=== PATIENT | female | born 1960 | race Caucasian/White ===

== ENCOUNTER 2019-02-26 14:36 | Inpatient (IN) | payer MEDICAID, SELFPAY ==
--- NOTE | 2019-02-21 13:35 | ECG_ITS ---
Measurements Intervals [place] Rate: 89 P: 57 SC: 180 QRS: 65 QRSD: 91 T: 63 QT: 347 QTc: 424 SINUS RHYTHM Compared to ECG 05/07/2018 11:33:14 No significant changes Electronically Signed On 02-21-2019 17:10:35 CLUB WAITER/WAITRESS by Julee Lee M.D. [id number]
[2019-02-21 13:45] VITALS: BMI 26.5
--- NOTE | 2019-02-21 14:20 | ANES.PREANES ---
Pre-Anesthetic Assessment Pre-Anesthetic Assessment: Height/Weight: Height 1.6 m Weight 68.039 kg Proposed Procedure: Operation Date: 02/26/19 13:00 Proposed Procedures p Total Knee Arthroplasty Revision polyethlene exchange/ poss exhcage of tibal and femoral components(Not Applicable) - Annette Ceballos MD Social: Social History: Alcohol and Tobacco Exam: Pre-Anes Outpt Exam: alert, oriented x 3, clear to auscultation bilaterally and regular rate & rhythm Airway: Submandibular: WNL Cervical ROM: WNL MP: 2 Dentition: Loose (teeth very bad) Pulmonary: Pulmonary: COPD, Cough and ESCOBAR CV/HEM: CV/HEM: HTN : : None reported Hepatic: Hepatic: None reported GI: GI: GERD Metabolic: Metabolic: None reported Musc/skel: Musc/skel: OA/DJD and Weakness (gen) Neuropsych: Neuropsych: Anxiety and Depression Anesthetic Plan: ASA status: III Anesthesia: Anesthesia Evaluation and General Risk of > 500 ml blood loss (7ml/kg in children): No PFSH Anesthesia PFSH: Medical History Anxiety (Acute) Chronic back pain (Acute) Depression (Acute) Hypertension (Acute) Surgical History H/O tubal ligation (Acute) History of total right knee replacement (Acute) Hx of colonoscopy with polypectomy (Acute) Hx of inguinal hernia repair (Acute) Hx of umbilical hernia repair (Acute) Social History Smoking and tobacco status: current every day smoker cigarettes Packs smoked per day: 1 Data Anesthesia Cardiac Studies: No Data to Display
[2019-02-21 14:35] LABS: Basophils % 0.2 %; Eosinophils # 0.2 10^3/uL (0.0-0.8); Eosinophils % 2.7 %; Hematocrit 38.8 % (37.0-47.0); Lymphocytes # 2.1 10^3/uL (0.8-4.8); Lymphocytes % 25.3 %; Mean Corpuscular HGB Conc 33.5 g/dL (30.0-36.0); Mean Corpuscular Hemoglobin 30.6 pg (28.0-34.0); Mean Corpuscular Volume 91.3 fL (81-99); Mean Platelet Volume 9.2 fL (7.4-10.4); Monocytes # 0.7 10^3/uL (0.2-0.9); Monocytes % 8.6 %; Neutrophils # 5.3 10^3/uL (1.8-7.7); Neutrophils % 62.7 %; Nucleated Red Blood Cells % 0 %; Platelet Count 407 10^3/cmm (130-400); Red Blood Count 4.25 10^6/uL (4.1-5.3); Red Cell Distribution Width 13.1 % (12.1-15.1); White Blood Count 8.5 10^3/uL (4.0-10.0)
[2019-02-21 14:47] LABS: Protein Urine Neg (Negative); Specific Gravity, Urine 1.005 (1.005-1.030); Urine Appearance Clear (CLEAR); Urine Color Yellow (Yellow); pH Urine 7 (5-7)
[2019-02-21 14:48] LABS: Bilirubin Urine Neg (NEGATIVE); Blood Urine Neg (Negative); Glucose Urine UA Norm (Normal); Ketones Urine Negative (Negative); Leukocyte Esterase Urine Negative (Negative); Nitrate Urine Negative (Negative); Urobilinogen Urine Norm (Negative)
[2019-02-21 14:48] LABS: INR 0.97 (0.8-1.2)
[2019-02-21 14:49] LABS: Add Urine Culture? No; Bacteria Urine TRACE; Squamous Epithelial Cell Urine 0-4 (0-5); WBC Urine 0-4 /hpf (0-5)
[2019-02-21 14:54] LABS: Alanine Aminotransferase 13 U/L (0-33); Albumin Level 4.6 g/dL (3.5-5.2); Alkaline Phosphatase 81 IU/L (35-105); Anion Gap 15.8 (5-19); Aspartate Amino Transferase 14 U/L (0-32); Blood Urea Nitrogen 14 mg/dL (6-20); Calcium 10.1 mg/Dl (8.6-10.0); Carbon Dioxide 26 mmol/L (22-29); Chloride 95 mmol/L (98-107); Globulin 2.1 g/dL (1.3-4.6); Glomerular Filtration Rate 86.6 mL/min (90-130); Glucose 117 mg/dL (74-109); Potassium 3.8 mmol/L (3.5-5.1); Sodium 133 mmol/L (136-145); Total Bilirubin 0.2 mg/dL (0.15-1.2); Total Protein 6.7 g/dL (6.6-8.7)
--- NOTE | 2019-02-22 | XR_ITS ---
WS: [id number] CHEST 2 VIEWS HISTORY: RIGHT KNEE SURGERY COMPARISON: 05/07/2018 Lungs: Clear with no abnormality. No pleural effusion or pneumothorax. Cardiac size: Normal. Mediastinum/Aorta: Normal mediastinum. Bones: Normal. XR/XR chest 2V* [id number] IMPRESSION: Normal chest.
[2019-02-26] VITALS (20 sets, daily range): BP systolic 91–154; BP diastolic 50–89; PULSE 83–99; RESP 16–22; TEMP 36.4–37.1; O2SAT 91–99
--- NOTE | 2019-02-26 09:17 | ANES.PAUD ---
Pre-Anesthetic Update Pre-Anesthetic Assessment: Date of Surgery/Procedure: 02/26/19 Proposed Procedure: Operation Date: 02/26/19 10:25 Proposed Procedures p Total Knee Arthroplasty Revision polyethlene exchange/ poss exchange of tibal and femoral components(Not Applicable) - Annette Ceballos MD Any changes to Pre-Anesthetic Assessment?: No Vitals: Temperature 98.1 F 02/26/19 08:39 Temperature Source Temporal Artery S can 02/26/19 08:39 Pulse Rate 85 02/26/19 08:39 Pulse Rhythm 02/26/19 08:39 Pulse Strength 3+ Normal 02/26/19 08:39 Respiratory Rate 18 02/26/19 08:39 Respiratory Effort Non-Labored 02/26/19 08:39 Respiratory Depth Normal 02/26/19 08:39 Blood Pressure 154/89 02/26/19 08:39 Blood Pressure Anupama n 110 02/26/19 08:39 Blood Pressure Pos ition Sitting 02/26/19 08:39 Pulse Oximetry 98 02/26/19 08:39 Oxygen Delivery Me thod 02/26/19 08:39 Exam: Pre-Anes Outpt Exam: alert, oriented x 3, clear to auscultation bilaterally and regular rate & rhythm Cardiac Studies: No Data to Display
--- NOTE | 2019-02-26 11:03 | ANES.PROC ---
Anesthesia Procedures Procedure/Date: 02/26/19 Nerve Block ^: Nerve Block 1: Main Anesthesia: general anesthesia Time Out Performed: Yes Consent: requested by attending/covering physician and from patient Nerve block location: adductor canal Anesthesia monitors applied: pulse oximetry, EKG, BP cuff and oxygen Nerve block position: semi sitting Anesthetic Used: ropivicaine 0.5% Amount of anesthesia used (mL): 30 Ultrasound used to: recognize landmarks and visualize and ID femerol nerve Nerve Stimulator Used?: No Interscalene/Femoral BLK: 4 stimuplex 21 g needle used for position and inplane approach Injection: neg aspiration of heme Patient Tolerated Procedure: well Complications: none
[2019-02-26] MEDS: sodium chloride 0.9% 1,000 ML 30 ML IV (11:23)
[2019-02-26] MEDS: midazolam 1 mg/mL INJ 5 ML 5 MG IV (11:23)
--- NOTE | 2019-02-26 13:08 | PM.HPUD ---
H&P update H&P Update: DATE OF SURGERY/PROCEDURE: 02/26/19 DATE H&P PERFORMED: 02/18/19 H&P UPDATE INFORMATION: H&P completed within last 30 days, No changes to prior documentation and H&P is in [facility] EMR on date indicated PLANNED PROCEDURE: Operation Date: 02/26/19 10:25 Proposed Procedures p Total Knee Arthroplasty Revision polyethlene exchange/ poss exchange of tibal and femoral components(Not Applicable) - Annette Ceballos MD Full H&P Medications/Allergies: Current Medications: Current Medications Generic Name Dose Route Start Last Admin Trade Name Freq PRN Reason Stop Dose Admin Sodium Chloride 1,000 mls @ 30 ml s/hr 02/26/19 06:45 02/26/19 11:23 Sodium Chloride 0.9% IV 02/27/19 06:44 30 mls/hr .Q24H DANILO Administration Perinent History: Medical/Surgical History: Medical History (Updated 02/21/19 @ 14:21 by Tadeo Angeles MD) Anxiety (Acute) Chronic back pain (Acute) Depression (Acute) Hypertension (Acute) Social History: Social History Smoking and tobacco status: current every day smoker cigarettes Packs smoked per day: 1 A&P Assessment and plan (1) Pain due to internal orthopedic prosthetic devices, implants and grafts, initial encounter: Status: Acute Code(s): T84.84XA - Pain due to internal orthopedic prosthetic devices, implants and grafts, initial encounter (2) History of total knee arthroplasty: Status: Acute Code(s): Z96.659 - Presence of unspecified artificial knee joint
[2019-02-26] MEDS: ceFAZolin 1,000 mg SDV 1000 MG IRRIGATION ×2 (13:19→13:34)
[2019-02-26] MEDS: vancomycin 1,000 MG in sodium chloride 0.9% 250 ML 250 MG IV (13:33)
[2019-02-26] MEDS: vancomycin 1,000 MG SDV 1000 MG XX (13:40)
--- NOTE | 2019-02-26 13:47 | ANE.PACU ---
 Inpatient post-anesthesia follow up: Airway intact: Yes Vital signs: Temperature 98.1 F Pulse Rate [Right] 85 Respiratory Rate 18 Blood Pressure [Le ft Arm] 154/89 Pulse Oximetry 98 Oxygen Delivery Me thod Room Air Oxygen Flow Rate Fraction of Inspir ed Oxygen Hydration adequate: Yes Nausea and vomiting: No Mental status: Baseline
--- NOTE | 2019-02-26 14:46 | XR_ITS ---
WS: [id number] Right knee, 3 views, 02/26/2019 Clinical Data: Post Op - Patient in PACU Comparison: None. Findings: The patient has had surgery on the right knee with medial renae. The arthroplasty components of the distal femur and proximal tibia appear to be the same. The component of the posterior patella appear s to be different. There is an air-fluid level in the suprapatellar bursa from the recent surgery. XR/XR knee RT 3V* [id number] Impression: Revision of right knee arthroplasty.
--- NOTE | 2019-02-26 14:57 | P.OP_ITS ---
Operative Report Post-Operative Note: Date of procedure: 02/26/19 Preop Diagnosis: Painful, unstable right total knee arthroplasty Post-op diagnosis: same Post-op Findings: increased stability with increased size of the polyethylene insert Procedure Done: right knee arthrotomy with synovectomy and revision of tibial compound it with removal and replacement of polyethylene tibial insert Implants: Triathlon X3 posterior stabilized size 2 x 16 mm tibial bearing insert Specimens removed/disposition: tibial bearing insert removed and disposed of Pathology: other (synovium sent for culture and pathologic evaluation, synovial fluid ulcer and sensitivity) Surgeon: Annette Ceballos Party Supply Specialist: Bunny Stewart Anesthesia: general (intubated with regional block) Estimated blood loss (mL): 5 Tourniquet time (min): 60 IV fluids (mL): 800 Urine output (mL): 500 Complications: none Findings: full extension but varus valgus instability with exam under anesthesia Condition: stable Disposition: PACU (then to floor) Operative Report: Brief History: This 58-year-old woman presented to my office with complaints of pain and popping following her right total knee arthroplasty which was performed on 05/15/2018. Apparently, this is been a progressive problem for her. Upon evaluation in the office, she did appear to have slight hyperextension, and she had varus valgus instability to stress. She was very uncomfortable with this testing. The patient has multiple medical comorbidities which will require inpatient admission and hospitalist consultation. Procedure: The patient was brought to the operating theater, and after undergoing adequate general intubated anesthesia with supplemental regional block, the right lower extremity was prepped with Dura-Prep and draped in usual fashion following placement of a tourniquet high on the leg. The leg was then draped free. Following prepping and draping, the leg was exsanguinated, and the tourniquet was elevated to 250 mmHg for a total tourniquet time of 60 minutes. Prior to elevation of the tourniquet, but following exposure of the site of surgery, a surgical pause was performed. At the time of the surgical pause, we confirmed the site and side of surgery. Additionally, we confirmed preoperative antibiotics were held. Once cultures were obtained, vancomycin 1 g was given. The availability of equipment was confirmed, and the patient's identity was verbalized as well. Following the surgical pause, an incision was made centering over the patella, but incorporating the patient's prior incision, continuing proximally and distally as necessary to allow access to the knee joint. Dissection continued through skin and soft tissues using a scalpel. Hemostasis was obtained using electrocautery. The skin incision was followed by a median parapatellar arthrotomy. Synovial fluid was cultured at this time. Soft tissue adhesions were removed to allow access to the knee joint. This encompassed a significant side effect may particularly medially and laterally as well as superior to the femoral component. The patellar tendon was debrided as well with care being taken to avoid injury to the tendon. Soft tissue from around the tibia was removed to allow access and evaluation of the tibial tray. Components were evaluated. There was no evidence of loosening. There was instability with varus or valgus stress particularly with the knee flexed about 30?. The tibial insert was removed using osteotomes. This was accomplished uneventfully. Further soft tissue removal and synovectomy was accomplished. we were able to allow access to the tibia. Synovectomy was performed posteriorly as well. Trial reduction was accomplished with with the appropriate size 2 triathlon tibial bearing insert posterior stabilized. The trial was accomplished with a 13 mm insert with the previous insert having been 11 mm. The decision was made after this reduction that a size 16 mm insert would be appropriate, and the decision was also made to not perform a trial reduction with this insert secondary to difficulty inserting and removing. The knee was irrigated with 20 mL of Betadine and 500 mL of normal saline, and this was allowed to remain in the knee for 3-4 minutes. The knee was then copiously irrigated and suctioned dry. Attention was then directed to closure. Closure was accomplished with 0 Vicryl in the fascial tissues, 2-0 Monocryl was used in the subcutaneous tissues, and the skin was closed with skin renae. A sterile dressing was then placed consisting of Xeroform gauze, 4 x 4's, ABDs, sterile soft roll, and an Desmond wrap. The patient was returned the Recovery Room in a satisfactory condition. X-rays were obtained there. The patient will be discharged to the floor for postoperative rehabilitation and pain management. She'll be admitted to the floor as an inpatient for a minimum of 2 midnights stay for medical and pain management as well as aggressive physical therapy and range of motion. Patient's knee has been operated on multiple times, an inpatient rehabilitation will be necessary for her to maximize her recovery from this total knee arthroplasty. There were no specimens and no complications. Coding Level of Care Code Acute National Recruiter for Adan Guillen
[2019-02-26] MEDS: fentaNYL 50 mcg/mL INJ 2mL IVP (15:08)
--- NOTE | 2019-02-26 15:44 | SUR.PHASEI ---
1448 PT TO PACU AWAKE ALERT TALKATIVE, RT KNEE WITH FIRST ICE DRESSING D/I DISTAL PULSE STRONG AND REGULAR BILAT FOOT PUMPS ON FERGUSON WITH STATLOCK TO LT THIGH WITH YELLOW URINE IN TUBING, 1528 PT TO FLOOR PER BED NO FAMILY IN WR, DR GLASS AT BEDSIDE UPDATED PT THAT ALL WENT WELL, AND THAT NO ANSWER TO HER S/O PHONE . PT DRESSING D/I X RAY S DONE PT ON 3LNC NOW PT TO FLOOR PER BED BY RN. PT C/O O F PAIN BUT SLEEPS IF NOT DISTURBED FACE SCALE 2 , IF QUESTIONED PT STATES 8 .PT OK WITH TAKING PO PAIN MED ON FLOOR.
[2019-02-26] MEDS: oxyCODONE 5 mg IR Tab/Cap PO ×2 (16:16→20:19)
--- NOTE | 2019-02-26 16:16 | P.CONIM_ITS ---
Providers/Reason For Consult Consulting Physican/Specialty*: Lin, orthopedic surgery Reason for Consult*: Medical management Attending Physician: Annette Ceballos History of Present Illness History of Present Illness Dayanara Singleton is a 58 year old female that presented to the hospital today for total knee arthroplasty. She reported that she had been feeling well prior to surgery without any recent illness or fevers. She denies any recent antibiotic use. She reported no other concerns other than knee pain. Patient denies any recent chest pain, no shortness of breath. She reported chronic smoker's cough that is unchanged. Patient did report daily alcohol use, no history of alcohol withdrawal. Review of Systems Const: Denies: fever or chills Eyes: Denies: change in vision ENMT: Denies: nasal congestion Card: Denies: chest pain, palpitations or edema Resp: Denies: shortness of breath, productive cough or coughing up blood GI: Denies: abdominal pain, nausea, vomiting, diarrhea, constipation, blood in stool or black tarry stool : Denies: painful urination or blood in urine Skin/Breast: Denies: rash or new lesion Neuro: Denies: headache or dizziness Psych: Denies: anxiety or depression Endo: Denies: excessive urination or hot flashes Clyde/Lymph: Denies: easy bruising or easy bleeding Meds/Allergies Home Medications and Allergies Home Medications Medication Instructions Recorded Confirmed Type amlodipine 10 mg PO DAILY 02/21/19 02/26/19 History ferrous sulfate [iron] 325 mg PO DAILY 02/21/19 02/26/19 History fluvoxamine 50 mg PO PRN 02/21/19 02/26/19 History lactobacillus combination no.4 3,000 mmu cells PO DAILY 02/21/19 02/26/19 History [Probiotic] lorazepam 0.5 mg PO BID PRN 02/21/19 02/26/19 History metoprolol succinate 100 mg PO QPM 02/21/19 02/26/19 History trazodone 02/21/19 History vitamin C59-[id number] acid 1 tab PO DAILY 02/21/19 02/26/19 History albuterol sulfate [ProAir HFA] INHALATION 02/26/19 History calcium carbonate-vit D3-min tab PO 02/26/19 History [Calcium 600 + Minerals] turmeric 1,000 mg PO DAILY 02/26/19 02/26/19 History Allergies Allergy/AdvReac Type Severity Reaction Status Date / Time No Known Allergies Allergy Verified 02/26/19 08:49 PFSH Acute PFSH: Statuses (acute, chronic, etc) shown below reflect problem list status as previously entered and may not be historically accurate Medical History (Updated 02/26/19 @ 16:20 by Katlin Henson DO) Anxiety (Acute) Chronic back pain (Acute) Depression (Acute) Hypertension (Acute) Pain due to internal orthopedic prosthetic devices, implants and grafts, initial encounter (Acute) Surgical History (Updated 02/26/19 @ 13:11 by Annette Ceballos MD) H/O tubal ligation (Acute) History of total knee arthroplasty (Acute) Right History of total right knee replacement (Acute) Hx of colonoscopy with polypectomy (Acute) Hx of inguinal hernia repair (Acute) Hx of umbilical hernia repair (Acute) Family History (Updated 02/26/19 @ 16:18 by Katlin Henson DO) Mother Cancer Father CAD (coronary artery disease) Stroke FH: brain aneurysm Brother Cancer Social History (Updated 02/26/19 @ 16:19 by Katlin Henson DO) Smoking and tobacco status: current every day smoker cigarettes Packs smoked per day: 1 Alcohol intake: current Substance/Drug Use: never Vitals/I&O/Wt Last Vital Signs Temp 97.7 F 02/26/19 15:30 Pulse 94 02/26/19 15:30 Resp 22 H 02/26/19 15:30 BP 102/68 02/26/19 15:30 Pulse Ox 93 02/26/19 15:30 02/26/19 02/26/19 02/26/19 06:59 14:59 22:59 Intake Total 1860 / 1860 200 / 2060 Output Total 500 / 516 Balance 1844 / 1844 -300 / 1544 Physical Exam Const: COMMON NORMALS: oriented x3 and alert GENERAL APPEARANCE: cooperative ORIENTATION/CONSCIOUSNESS: Yes awake, Yes oriented to person, Yes oriented to place and Yes oriented to time HENMT: COMMON NORMALS: normocephalic and head/scalp atraumatic HEAD & SCALP: normocephalic and atraumatic Eye: COMMON NORMALS: PERRL PUPIL: Yes PERRL Neck/C-Spine: COMMON NORMALS: supple GENERAL: Yes normal visual inspection Resp: COMMON NORMALS: normal respiratory effort and clear to auscultation bilaterally EFFORT & INSPECTION: Yes able to speak in complete sentences AUSCULTATION: clear to auscultation bilaterally, no rhonchi and no wheezes Cardio: COMMON NORMALS: regular rate, regular rhythm and no murmurs RATE: regular rate RHYTHM: regular rhythm GI: COMMON NORMALS: soft to palpation and non-tender INSPECTION: No abdominal distension AUSCULTATION: Yes normoactive bowel sounds PALPATION: Yes soft Extremity: NARRATIVE EXTREMITY EXAM: Postoperative dressing in place in the right lower extremity Neuro: COMMON NORMALS: oriented x3, CN's II-XII intact bilaterally, moves all extremities and no focal motor deficits SENSORIUM/ORIENTATION: Yes alert, Yes oriented to person, Yes oriented to place and Yes oriented to time SPEECH: speech normal Psych: COMMON NORMALS: mental status grossly normal and cooperative Skin: COMMON NORMALS: no rashes or lesions noted GENERAL SKIN EXAM: no rashes or lesions noted A&P Assessment and plan (1) History of total knee arthroplasty: Status post total knee arthroplasty revision performed this admission by Dr. Robert. Will follow up with recommendations in the postoperative setting Status: Acute Code(s): Z96.659 - Presence of unspecified artificial knee joint (2) Hypertension: Continue on amlodipine 10 mg daily Continue on metoprolol succinate 100 mg at bedtime Status: Acute Code(s): I10 - Essential (primary) hypertension (3) Anxiety: Home fluvoxamine 50 mg daily Status: Acute Code(s): F41.9 - Anxiety disorder, unspecified Additional A&P Information Additional A&P Information: Patient reports daily alcohol use: We will monitor closely on [place] protocol with Ativan Tobacco abuse: Strongly encourage cessation, nicotine patch as needed Consult Attestations Medical Necessity Statement: Hospitalization status post total knee arthroplasty revision with daily alcohol use, tobacco abuse, hypertension and anxiety Coding Level of Care Code Acute [facility] Nurse for Adan Fwsergio Diagnoses History of total knee arthroplasty Z96.659 Hypertension I10 Anxiety F41.9
--- NOTE | 2019-02-26 16:16 | SUR.PHASEI ---
1535 PT TO FLOOR AWAKE ALERT TALKATIVE BP 102/68, HR 94, RESP 22, SATS ON 3LNC 93%
[2019-02-26] MEDS: sodium chloride 0.9% 1,000 ML 100 ML IV (16:17)
[2019-02-26] MEDS: metoprolol succinate ER (24 HR) 100 mg Tablet PO (17:18)
[2019-02-26] MEDS: iron polysaccharide complex 150 mg Capsule PO (17:18)
[2019-02-26] MEDS: calcium carbonate 500 mg Chew Tablet 1000 MG PO (17:18)
[2019-02-26] MEDS: aspirin 325 mg EC Tablet PO (17:18)
[2019-02-26] MEDS: chlorhexidine gluconate 0.12% Btl 473 mL 30 ML MUCOUS MEM (17:18)
[2019-02-26] MEDS: sennosides-docusate Tablet 2 TAB PO (17:18)
[2019-02-26] MEDS: CELEcoxib 200 mg Capsule PO (17:18)
[2019-02-26] MEDS: LORazepam 0.5 mg Tablet PO (20:19)
[2019-02-26] MEDS: ondansetron 2 mg/ML SDV 2 mL 4 MG IVP (20:20)
[2019-02-26] MEDS: nicotine 21 mg Patch 1 PATCH TRANSDERMA (20:25)
[2019-02-27] VITALS (13 sets, daily range): BP systolic 96–139; BP diastolic 62–80; PULSE 69–93; RESP 16–18; TEMP 36.3–36.8; O2SAT 91–99; BMI 34.3
[2019-02-27] MEDS: oxyCODONE 5 mg IR Tab/Cap PO ×3 (02:16→12:26)
[2019-02-27] MEDS: ondansetron 2 mg/ML SDV 2 mL 4 MG IVP ×2 (02:16→08:15)
[2019-02-27] MEDS: CELEcoxib 200 mg Capsule PO ×2 (03:00→14:33)
[2019-02-27] MEDS: sodium chloride 0.9% 1,000 ML 100 ML IV ×2 (03:02→14:33)
[2019-02-27] MEDS: TRAMadol 50 mg Tablet PO (04:58)
[2019-02-27 05:23] LABS: Basophils % 0.2 %; Hematocrit 35.2 % (37.0-47.0); Hemoglobin 11.8 g/dL (11.5-15.3); Lymphocytes # 0.7 10^3/uL (0.8-4.8); Lymphocytes % 6.9 %; Mean Corpuscular HGB Conc 33.5 g/dL (30.0-36.0); Mean Corpuscular Hemoglobin 30.9 pg (28.0-34.0); Mean Corpuscular Volume 92.1 fL (81-99); Mean Platelet Volume 9.4 fL (7.4-10.4); Monocytes # 0.5 10^3/uL (0.2-0.9); Monocytes % 4.8 %; Neutrophils # 8.9 10^3/uL (1.8-7.7); Neutrophils % 87.5 %; Nucleated Red Blood Cells % 0 %; Platelet Count 370 10^3/cmm (130-400); Red Blood Count 3.82 10^6/uL (4.1-5.3); White Blood Count 10.1 10^3/uL (4.0-10.0)
[2019-02-27 05:40] LABS: Anion Gap 15.1 (5-19); Blood Urea Nitrogen 10 mg/dL (6-20); Calcium 8.5 mg/Dl (8.6-10.0); Carbon Dioxide 24 mmol/L (22-29); Chloride 96 mmol/L (98-107); Glomerular Filtration Rate 165.1 mL/min (90-130); Glucose 227 mg/dL (74-109); Potassium 4.1 mmol/L (3.5-5.1); Sodium 131 mmol/L (136-145)
[2019-02-27] MEDS: aspirin 325 mg EC Tablet PO (08:13)
[2019-02-27] MEDS: ferrous sulfate EC 325 mg Tablet PO (08:13)
[2019-02-27] MEDS: multivitamin therapeutic Tablet 1 TAB PO (08:14)
[2019-02-27] MEDS: thiamine 100 mg Tablet PO (08:14)
[2019-02-27] MEDS: cholecalciferol (vitamin D3) 1,000 unit Tablet 1000 UNIT PO (08:14)
[2019-02-27] MEDS: iron polysaccharide complex 150 mg Capsule PO (08:14)
[2019-02-27] MEDS: sennosides-docusate Tablet 2 TAB PO (08:14)
[2019-02-27] MEDS: amlodipine 10 mg Tablet PO (08:15)
[2019-02-27] MEDS: nicotine 21 mg Patch 1 PATCH TRANSDERMA (08:15)
[2019-02-27] MEDS: calcium carbonate 500 mg Chew Tablet 1000 MG PO (08:15)
[2019-02-27] MEDS: chlorhexidine gluconate 0.12% Btl 473 mL 30 ML MUCOUS MEM ×2 (08:15→12:20)
--- NOTE | 2019-02-27 10:10 | P.PN_ITS ---
Subjective Subjective: Interval history: Patient awake in bed at time of exam this morning. She reported the pain is well controlled with medication she does report some discomfort in her knee but reported that she is able to get up with therapy and ambulate to the bedside commode. Patient denies any chest pain or shortness of breath Vitals/I&O/Wt Last Vital Signs Temp 98.2 F 02/27/19 08:02 Pulse 93 02/27/19 08:02 Resp 18 02/27/19 08:14 BP 109/67 02/27/19 08:02 Pulse Ox 91 02/27/19 08:02 02/26/19 02/27/19 02/27/19 22:59 06:59 14:59 Intake Total 780 / 2640 1446.667 / 4086.667 240 / 240 Output Total 1050 / 1066 2100 / 3166 Balance -270 / 1574 -653.333 / 920.667 240 / 240 Weight last 48 hrs Weight 87.906 kg Weight 87.906 kg Physical Exam Const: COMMON NORMALS: oriented x3 and alert GENERAL APPEARANCE: cooperative ORIENTATION/CONSCIOUSNESS: Yes awake, Yes oriented to person, Yes oriented to place and Yes oriented to time HENMT: COMMON NORMALS: normocephalic and head/scalp atraumatic HEAD & SCALP: normocephalic and atraumatic Eye: COMMON NORMALS: PERRL PUPIL: Yes PERRL Neck/C-Spine: COMMON NORMALS: supple GENERAL: Yes normal visual inspection Resp: COMMON NORMALS: normal respiratory effort and clear to auscultation bilaterally EFFORT & INSPECTION: Yes able to speak in complete sentences AUSCULTATION: clear to auscultation bilaterally, no rhonchi and no wheezes Cardio: COMMON NORMALS: regular rate, regular rhythm and no murmurs RATE: regular rate RHYTHM: regular rhythm GI: COMMON NORMALS: soft to palpation and non-tender INSPECTION: No abdominal distension AUSCULTATION: Yes normoactive bowel sounds PALPATION: Yes soft Extremity: NARRATIVE EXTREMITY EXAM: Postoperative dressing in place in the right lower extremity Neuro: COMMON NORMALS: oriented x3, CN's II-XII intact bilaterally, moves all extremities and no focal motor deficits SENSORIUM/ORIENTATION: Yes alert, Yes oriented to person, Yes oriented to place and Yes oriented to time SPEECH: speech normal Psych: COMMON NORMALS: mental status grossly normal and cooperative Skin: COMMON NORMALS: no rashes or lesions noted GENERAL SKIN EXAM: no rashes or lesions noted Urinary Catheter Management^: Abdalla: Cath Placed During This Visit: no Data Micro: Micro: Microbiology 02/26/19 13:40 Gram Stain - Final Synovial Fluid 02/26/19 13:45 Gram Stain - Final Knee - Right A&P Assessment and plan (1) History of total knee arthroplasty: Status post total knee arthroplasty revision performed this admission by Dr. Ceballos. Will follow up with recommendations in the postoperative setting Status: Acute Code(s): Z96.659 - Presence of unspecified artificial knee joint (2) Hypertension: Continue on amlodipine 10 mg daily Continue on metoprolol succinate 100 mg at bedtime Status: Acute Code(s): I10 - Essential (primary) hypertension (3) Anxiety: Home fluvoxamine 50 mg daily Status: Acute Code(s): F41.9 - Anxiety disorder, unspecified Additional A&P Information Additional A&P Information: Patient reports daily alcohol use: We will monitor closely on CIWA protocol with Ativan Tobacco abuse: Strongly encourage cessation, nicotine patch as needed. Tobacco cessation greater than 5 minutes today. Patient requesting discharge to home Attestations Medical Necessity Statement*: Hospitalization status post total knee arthroplasty revision Coding Level of Care Code Acute Service Control Operator for Adan Guillen Diagnoses History of total knee arthroplasty Z96.659 Hypertension I10 Anxiety F41.9
--- NOTE | 2019-02-27 13:22 | ANE.PACU ---
 Inpatient post-anesthesia follow up: Airway intact: Yes Vital signs: Temperature 98.2 F Pulse Rate [Right] 69 Pulse Rate 92 Respiratory Rate 18 Blood Pressure [Le ft Arm] 108/67 Pulse Oximetry 98 Oxygen Delivery Me thod Room Air Oxygen Flow Rate 2 Fraction of Inspir ed Oxygen Hydration adequate: No Nausea and vomiting: Yes Pain level: acceptable Mental status: Baseline
--- NOTE | 2019-02-27 13:59 | PM.PN ---
Subjective Subjective: Interval history: Patient is doing very well following revision of her tibial insert following instability after total knee arthroplasty. Medications: Reviewed: Yes Vitals/I&O/Wt Last Vital Signs Temp 98.2 F 02/27/19 12:00 Pulse 69 02/27/19 12:00 Resp 18 02/27/19 12:26 BP 108/67 02/27/19 12:00 Pulse Ox 98 02/27/19 12:00 02/26/19 02/27/19 02/27/19 22:59 06:59 14:59 Intake Total 780 / 2640 1446.667 / 4086.667 720 / 720 Output Total 1050 / 1066 2100 / 3166 Balance -270 / 1574 -653.333 / 920.667 720 / 720 Weight last 48 hrs Weight 193 lb 12.8 oz Weight 193 lb 12.8 oz Physical Exam Const: COMMON NORMALS: no apparent distress and oriented x3 EXAM LIMITATIONS: no altered mental status ORIENTATION/CONSCIOUSNESS: Yes awake and Yes oriented to person HENMT: COMMON NORMALS: normocephalic and head/scalp atraumatic HEAD & SCALP: normocephalic and atraumatic Eye: GENERAL EYE: normal appearance of both eyes Resp: COMMON NORMALS: normal respiratory effort EFFORT & INSPECTION: Yes able to speak in complete sentences and Yes symmetric chest movement Extremity: RIGHT LOWER EXTREMITY: Yes knee joint Right knee: Yes inspection (no significant swelling or edema. Incision is intact without drainage), Yes palpation (minimal tenderness to palpation, calf is soft and nontender), Yes ROM (patient lacks approximately 3? of extension passively and 10 actively.) and Yes neurovascular exam (intact) Neuro: COMMON NORMALS: oriented x3 and no focal motor deficits SENSORIUM/ORIENTATION: Yes oriented to person SPEECH: speech normal Psych: COMMON NORMALS: mental status grossly normal APPEARANCE: Yes grossly normal ATTITUDE: Yes calm and Yes engaged ACTIVITY/MOTOR BEHAVIOR: Yes appropriate eye contact ATTENTION/CONCENTRATION: Yes attention grossly intact MEMORY/COGNITION: Yes memory grossly intact INSIGHT: insight good JUDGEMENT: judgment good Urinary Catheter Management^: Abdalla: Cath Placed During This Visit: no Data Micro: Micro: Microbiology 02/26/19 13:40 Gram Stain - Final Synovial Fluid 02/26/19 13:45 Gram Stain - Final Knee - Right A&P Assessment and plan (1) Pain due to internal orthopedic prosthetic devices, implants and grafts, initial encounter: The patient has undergone revision of the tibial insert on her right total knee. She exhibited instability which have been slightly progressive particularly to varus and valgus stress. She also had slight hyperextension. For this, she underwent revision of her total knee. This was well-tolerated. She is doing well today and wishes to be discharged home. Status: Acute Code(s): T84.84XA - Pain due to internal orthopedic prosthetic devices, implants and grafts, initial encounter (2) History of total knee arthroplasty: Status: Acute Code(s): Z96.659 - Presence of unspecified artificial knee joint Attestations Medical Necessity Statement*: The patient is ready for discharge home today. It was felt that she would require a longer inpatient stay following revision total knee arthroplasty involving the tibial insert., However, she is ready for discharge and is felt to be safe. She has worked with physical therapy. 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
--- NOTE | 2019-02-27 14:09 | P.DS_ITS ---
Discharge Providers Date of Admission: 02/26/19 14:36 Date of Discharge: 02/27/19 Attending Provider at Admission: Annette Ceballos Attending Provider at Discharge: Annette Ceballos Diagnoses at Discharge Discharge Diagnosis (1) Pain due to internal orthopedic prosthetic devices, implants and grafts, initial encounter: Status: Acute Problem details: This was addressed with the revision total knee arthroplasty involving exchange of the tibial insert with synovectomy. (2) History of total knee arthroplasty: Status: Acute Problem details: Right Reason for Visit Reason for Visit: Reason For Visit: Revision of Polyethylene exchange poss revision of Hospital Course Hospital Course: The patient was admitted for same-day surgery. At that time, she had removal of her previous polyethylene insert following exam under anesthesia. The exam demonstrated that there was significant varus valgus instability. There was slight hyperextension, however, it did not seem to be as dramatic as that evaluated in the office when the patient was weightbearing. Knee arthrotomy was performed, the patient's knee was evaluated. Synovectomy was also performed. Components were felt to be intact with no signs of loosening. The previous polyethylene insert was removed and a thicker polyethylene insert as outlined in the surgical dictation was placed. The patient tolerated this well. She was admitted feeling that she would require at least 2 midnights secondary to pain control given that this was a revision. On the first postoperative day, the patient was doing quite well. She was felt safe for discharge to home. Secondary to insurance, she will not be able to have home health, but she is comfortable and confident with the exercises. Discharge Summary: The patient is to be discharged home with instruction in home therapy. Physical Exam Const: COMMON NORMALS: no apparent distress and oriented x3 EXAM LIMITATIONS: no altered mental status ORIENTATION/CONSCIOUSNESS: Yes awake and Yes oriented to person HENMT: COMMON NORMALS: normocephalic and head/scalp atraumatic HEAD & SCALP: normocephalic and atraumatic Eye: GENERAL EYE: normal appearance of both eyes Resp: COMMON NORMALS: normal respiratory effort EFFORT & INSPECTION: Yes able to speak in complete sentences and Yes symmetric chest movement Neuro: COMMON NORMALS: oriented x3 and no focal motor deficits SE NSORIUM/ORIENTATION: Yes oriented to person SPEECH: speech normal Psych: COMMON NORMALS: mental status grossly normal APPEARANCE: Yes grossly normal ATTITUDE: Yes calm and Yes engaged ACTIVITY/MOTOR BEHAVIOR: Yes appropriate eye contact ATTENTION/CONCENTRATION: Yes attention grossly intact MEMORY/COGNITION: Yes memory grossly intact INSIGHT: insight good 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: judgment good Urinary Catheter Management^: Abdalla: Cath Placed During This Visit: no Discharge Data Data Completed and Pending: Completed Studies During Hospitalization Category Date Time Status XR chest 2V* [id number] 6 Routine Exams 02/22/19 Completed XR knee RT 3V* 73 562 Stat Exams 02/26/19 14:46 Completed Pending at discharge Category Date Time Status Anaerobic Culture Routine Lab 02/26/19 13:40 Results Body Fluid Cultur e & GS Routine Lab 02/26/19 13:40 Results PRBC [Leukocyte R educed RBC] Routin e Lab 02/26/19 09:00 Results Tissue Culture an d Gram Stain Routi ne Lab 02/26/19 13:45 Results Type and Screen R outine Lab 02/26/19 09:00 Results Pathology: Surgic al [PTH] Routine Pth 02/26/19 14:21 Received Labs from last 24 hours 02/27/19 02/27/19 04:14 04:14 WBC 10.1 H RBC 3.82 L Hgb 11.8 Hct 35.2 L MCV 92.1 MCH 30.9 MCHC 33.5 RDW 13.0 Plt Count 370 MPV 9.4 Neut % (Auto) 87.5 Lymph % (Auto) 6.9 Loving % (Auto) 4.8 Eos % (Auto) 0.0 Baso % (Auto) 0.2 Neut # (Auto) 8.9 H Lymph # (Auto) 0.7 L Loving # (Auto) 0.5 Eos # (Auto) 0.0 Baso # (Auto) 0.0 Nucleated RBC % (a uto) 0 Nucleated RBCs # 0.0 Sodium 131 L Potassium 4.1 Chloride 96 L Carbon Dioxide 24 Anion Gap 15.1 BUN 10 Creatinine 0.4 L GFR Calculation 165.1 H Glucose 227 H Calcium 8.5 L Vitals: Last Vital Signs Temp 98.2 F 02/27/19 12:00 Pulse 69 02/27/19 12:00 Resp 18 02/27/19 12:26 BP 108/67 02/27/19 12:00 Pulse Ox 98 02/27/19 12:00 Discharge Plan Discharge Patient Disposition: Home, Self-Care Condition: Stable Prescriptions: New oxycodone 5 mg tablet 5 mg PO Q6H PRN (Reason: pain) Qty: 30 RF: 0 Continued amlodipine 10 mg tablet 10 mg PO DAILY RF: 0 trazodone 50 mg tablet RF: 0 metoprolol succinate 100 mg tablet extended release 24 hr 100 mg PO QPM RF: 0 ferrous sulfate [iron] 325 mg (65 mg iron) Tablet 325 mg PO DAILY RF: 0 fluvoxamine 50 mg tablet 50 mg PO PRN RF: 0 vitamin Q77-lziuv acid 0.5-1 mg Tablet 1 tab PO DAILY RF: 0 Probiotic 3 billion cell Capsule 3,000 mmu cells PO DAILY RF: 0 lorazepam 0.5 mg Tablet 0.5 mg PO BID PRN (Reason: Anxiety) RF: 0 ProAir HFA 90 mcg/actuation HFA aerosol inhaler INHALATION RF: 0 Calcium 600 + Minerals 600 mg calcium- 200 unit Tablet PO RF: 0 turmeric 400 mg Capsule 1,000 mg PO DAILY RF: 0 Discharge Orders: Discharge Order (Routine); Ordered 02/27/19 Ordered By: Katlin Henson Referrals: Annette Ceballos MD [Physician] - 03/15/19 11:15 pm (For nurse visit with evaluation of wound and staple removal. Please follow-up again on March 20 at 10:15 AM for x-ray and visit with me.) Marianne Mirza PA [Family Provider] - 03/05/19 1:45 pm Discharge Diet: Advance as tolerated Discharge Activity: Limit activity as instructed Activity Restrictions/Additional Instructions: Continue home exercise program. 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
--- NOTE | 2019-02-27 14:18 | PC.CHAP ---
Pastoral Care Encounter/Spiritual Assessment Type of Contact [] Declined ferris wheel operator visit [] Patient/Family/Request visit [] Outpatient visit [] Follow-up visit [] Physician referral [] Code/Alert [x] Routine visit [] Staff referral [] Actively dying [] Patient sleeping [] Family support [] [] Out of room [] Palliative care [] [] Receiving care in room [] Pre-surgical visit [] Trauma [] Long length of stay [] ICU visit [] Other: Relational/Emotional Strength [] Patient feels connected with others/family/visitors/staff [] Distress [] Loneliness/isolation [] Abandonment Spirituality of Patient [x] Person of Mirlande [] Attends Confucianism of their [place] [] Believes in Prayer [] Reads Bible or Worship materials [] There are Spiritual issues to be addressed Shipping Supervisor Interventions [x] Prayer [x] Active listening [x] Non-anxious presence [x] Spiritual/emotional support [] Crisis/trauma care [] Spiritual counseling [] Bereavement support [] Provided bereavement packet [] Provided Bible/devotional materials [] Provided toy/stuffed animal, coloring book to patient or family member [x] Completed spiritual assessment [] Provided Communion [] Anointing/[place] [] Salvation [] Other: Impact on Illness or Injury [] Angry [] Fearful [x] Anxious [] Often cries [x] Exhaustion [] Unable to work [] Unable to attend church [] Unable to walk/stand [] Unable to read [] Unable to drive [] Unable to eat/drink [] Unable to sleep [] Unable to be with family [] Other: Summary she needs lots of rest has problems standing for any lenght of time but no problems sitting visited by dylan jordan Time spent with patient 8 min
[2019-02-27] MEDS: vancomycin 1,000 MG in sodium chloride 0.9% 250 ML 250 MG IV (14:32)
== END 2019-02-27 15:47 | disposition home or self-care (01) | DRG 468 ==
LOC: MEDSURG 14:37
PROVIDERS: Admitting Provider Specialist; Family Provider Physician Assistant; Visit Provider Specialist
PROC: 0SPV0JZ Removal of Synthetic Substitute from Right Knee Joint, Tibial Surface, Open Approach (ICD-10-PCS; principal; 2019-02-26 10:25)
DX: T84.84XA Pain due to internal orthopedic prosthetic devices, implants and grafts, initial encounter (principal); I10 Essential (primary) hypertension; Y83.9 Surgical procedure, unspecified as the cause of abnormal reaction of the patient, or of later complication, without mention of misadventure at the time of the procedure; F17.210 Nicotine dependence, cigarettes, uncomplicated
CPT/HCPCS: 36415; 71046; 73562; 80048; 80053; 81001; 85025; 85610; 86850; 86900; 87070; 87075; 87077; 87176; 87205; 87641; 88304; 93005; 96372; 96375; 97110; 97161; 97166; 97535; C9290; J0131; J0690; J1100; J2001; J2250; J2405; J2704; J2795; J3010; J3370; J3490; J7030; J7050

== ENCOUNTER 2019-03-15 12:58 | Outpatient (CLI) | payer MEDICAID, SELFPAY ==
--- NOTE | 2019-03-15 16:00 | CT_ITS ---
WS: [id number] CT LUMBAR SPINE, noncontrast. HISTORY: low back pain TECHNIQUE: Contiguous 2.5 mm axial imaging are performed. Sagittal and coronal reformats are submitte d and reviewed. All CT scans at [facility] use at least one of these dose optimization te chniques: automated exposure control; mA and/or kV adjustment per patient size (includes targeted exa ms where dose is matched to clinical indication); or iterative reconstruction. IV contrast: None DLP: 2322.55 mGy.cm COMPARISON: 02/11/2019 5 lumbar type vertebral bodies. Less than 2 mm anterolisthesis of L4. No fractures. Disc spaces are w ell-maintained. L1-2: Normal. L2-3: Mild annular disc bulging with no disc protrusion or herniation. L3-4: Moderate annular disc bulging. No significant stenosis. Air in the facet joint on the LEFT. L4-5: Mild annular disc bulging with a central disc protrusion. Mild contact and flattening of the ve ntral thecal sac. Mild central and subarticular recess stenosis. Moderate facet joint arthropathy. L5-S1: Mild annular disc bulging with a RIGHT paracentral disc protrusion causing mild contact on the RIGHT S1 nerve root. Disc protrusion is slightly more prominent as compared to 02/11/2019. No signif icant stenosis. Moderate atherosclerosis of the abdominal aorta. 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/CT lumbar spine wo con* [id number] IMPRESSION: 1. Slight increase in the size of the RIGHT paracentral disc protrusion at L5- S1 with minimal contact on the RIGHT S1 nerve root. 2. Mild central, subarticular recess and foraminal stenosis at L4-5. 3. Facet joint arthropathy is most significant at L4-5 and L5-S1.
== END 2019-03-15 12:59 | disposition home or self-care (01) ==
LOC: RADWPI 13:03 → RAD 15:40
PROVIDERS: Family Provider Physician Assistant; PCP Physician Assistant; Visit Provider Licensed Practical Nurse
DX: M51.27 Other intervertebral disc displacement, lumbosacral region (principal); M48.061 Spinal stenosis, lumbar region without neurogenic claudication
CPT/HCPCS: 72131

== ENCOUNTER → 2019-03-20 10:31 | Outpatient (BNVA) | payer MEDICAID, SELFPAY | PROVIDERS: Family Provider Physician Assistant; PCP Physician Assistant; Visit Provider Specialist | DX: Z48.89 Encounter for other specified surgical aftercare (principal); Z96.651 Presence of right artificial knee joint | CPT/HCPCS: 73560; 73565 ==

== ENCOUNTER 2019-04-22 14:40 | Outpatient (RCR) | payer MEDICAID, SELFPAY | END 2019-05-09 23:00 | disposition home or self-care (01) | LOC: SPT 14:40 | PROVIDERS: Family Provider Physician Assistant; PCP Physician Assistant; Referring Provider Specialist; Visit Provider Specialist | DX: G89.4 Chronic pain syndrome (principal); M54.5 Low back pain | CPT/HCPCS: 97161 ==

== ENCOUNTER 2019-04-22 14:48 | Outpatient (RCR) | payer MEDICAID, SELFPAY | END 2019-05-09 23:00 | disposition home or self-care (01) | LOC: SPT 14:48 | PROVIDERS: Family Provider Physician Assistant; PCP Physician Assistant; Referring Provider Nurse Practitioner; Visit Provider Nurse Practitioner | DX: G89.4 Chronic pain syndrome (principal); M54.5 Low back pain | CPT/HCPCS: 97110; 97161 ==

== ENCOUNTER → 2019-04-29 14:02 | Outpatient (BNVA) | payer MEDICAID, SELFPAY | PROVIDERS: Family Provider Physician Assistant; PCP Physician Assistant; Visit Provider Specialist | DX: Z09 Encounter for follow-up examination after completed treatment for conditions other than malignant neoplasm (principal); Z96.651 Presence of right artificial knee joint | CPT/HCPCS: 73560; 73565 ==

== ENCOUNTER 2019-05-30 10:52 | Outpatient (CLI) | payer MEDICAID, SELFPAY ==
--- NOTE | 2019-05-30 14:45 | XR_ITS ---
WS: [id number] LATERAL LUMBAR SPINE: 3 view. Lateral radiographs are performed in upright neutral, flexion and extension to the patient's toleranc e. HISTORY: lumbar pain COMPARISON: 01/24/2019 L4 anterolisthesis by 6.4 mm. No significant change with flexion or extension. Mild disc space narrow ing at L4-5 and L5-S1. No fracture. Scattered calcifications within the aorta. XR/XR lumbar spine f/e only [id number] IMPRESSION: Grade 1 anterolisthesis of L4 with no instability during flexion or extension.
== END 2019-05-30 10:53 | disposition home or self-care (01) ==
PROVIDERS: Family Provider Physician Assistant; PCP Physician Assistant; Visit Provider Specialist
DX: M54.5 Low back pain (principal)
CPT/HCPCS: 72120

== ENCOUNTER 2019-08-05 12:14 | Emergency (ER) | payer MEDICAID, SELFPAY ==
[2019-08-05 12:18] VITALS: BP 144/78; PULSE 93; RESP 16; TEMP 36.7; O2SAT 97; BMI 27.4
[2019-08-05 12:50] LABS: Basophils # 0.1 10^3/uL (0.0-0.1); Basophils % 0.6 %; Eosinophils # 0.2 10^3/uL (0.0-0.8); Eosinophils % 2.2 %; Hematocrit 48.7 % (37.0-47.0); Hemoglobin 16.7 g/dL (11.5-15.3); Lymphocytes % 24.5 %; Mean Corpuscular HGB Conc 34.3 g/dL (30.0-36.0); Mean Corpuscular Volume 90.4 fL (81-99); Mean Platelet Volume 9.4 fL (7.4-10.4); Monocytes # 0.9 10^3/uL (0.2-0.9); Monocytes % 10.4 %; Neutrophils # 5.1 10^3/uL (1.8-7.7); Neutrophils % 61.7 %; Nucleated Red Blood Cells % 0 %; Platelet Count 451 10^3/cmm (130-400); Red Blood Count 5.39 10^6/uL (4.1-5.3); Red Cell Distribution Width 13.7 % (12.1-15.1); White Blood Count 8.2 10^3/uL (4.0-10.0)
--- NOTE | 2019-08-05 12:51 | ED_ITS ---
HPI - Abdominal Pain General: Chief Complaint: Abdominal Pain Stated Complaint: N/V, ABD PAIN Time Seen by Provider: 08/05/19 12:18 History of Present Illness: MD elicited complaint: abdominal pain Onset (ago): month(s) (approximately 2 months ago) Pain Consistency: constant Location: Epigastric and RUQ Severity: moderate Pain scale (0-10): 7 Quality: aching, fullness and sharp Radiation: none Migration to: no migration Exacerbating factors: eating Relieving factors: nothing Associated Symptoms: Reports bloating, diarrhea, dyspepsia, heartburn, nausea, poor appetite and vomiting; Denies chills, constipation, dysuria, fever(s), hematochezia and hematuria Review of Systems Const: Reports: change in appetite (decrease); Denies: fever(s), chills or fatigue Eyes: Denies: change in vision or eye discomfort ENMT: Denies: throat pain, odynophagia, nasal discharge or nasal congestion Card: Denies: chest pain, palpitations, edema, swelling of feet/ankles, dyspnea on exertion or orthopnea Resp: Denies: dyspnea, productive cough or non-productive cough GI: Reports: abdominal pain (Epigastric and right upper quadrant), nausea, vomiting, heartburn, diarrhea and bloating; Denies: constipation or hematochezia : Reports: oliguria; Denies: flank pain, dysuria or hematuria Musc: Reports: back pain (chronic lumbar pain); Denies: neck pain or extremity swelling Skin/Breast: Denies: rash or new lesions Neuro: Denies: headache(s), numbness in extremities or weakness in extremities PFSH ED PFSH: Medical History Anxiety Depression Hypertension Intervertebral disc disorder with radiculopathy of lumbosacral region Joint instability Lumbar stenosis with neurogenic claudication Pain due to internal orthopedic prosthetic devices, implants and grafts, initial encounter This was addressed with the revision total knee arthroplasty involving exchange of the tibial insert with synovectomy. Spondylisthesis Surgical History H/O tubal ligation History of total knee arthroplasty Right History of total right knee replacement Hx of colonoscopy with polypectomy Hx of inguinal hernia repair Hx of umbilical hernia repair Family History Mother Cancer Lung Father CAD (coronary artery disease) Stroke FH: brain aneurysm Brother Cancer Social History Smoking and tobacco status: current every day smoker cigarettes Packs smoked per day: 1 Alcohol intake: current Lives independently: No Household members: none Housing: House Marital status: Legally service: No Current occupational status: disabled History of recent travel: No Physical Exam Const: COMMON NORMALS: patient oriented x3 and alert GENERAL APPEARANCE: cooperative; not comfortable (uncomfortable due to epigastric and RUQ pain.) HENMT: COMMON NORMALS: normocephalic HEAD & SCALP: normocephalic MOUTH: moist mucous membranes abnormal Details: parched THROAT: posterior oropharynx normal and uvula midline Eye: COMMON NORMALS: Equal, round and reactive pupils present PUPIL: Yes Equal, round and reactive pupils present Neck/C-Spine: COMMON NORMALS: supple GENERAL: Yes normal visual inspection Resp: COMMON NORMALS: normal respiratory effort, No retractions, No use of accessory muscles and clear to auscultation bilaterally AUSCULTATION: clear to auscultation bilaterally Cardio: COMMON NORMALS: regular rate, regular rhythm, S1 normal heart sound present, S2 normal heart sound present, No gallops present (Cardio), No clicks present (Cardio), No murmurs present (Cardio) and Peripheral pulses 2+ throughout RATE: regular rate RHYTHM: regular rhythm HEART SOUNDS: S1 normal heart sound present and S2 normal heart sound present PERIPHERAL PULSES: Peripheral pulses 2+ throughout GI: COMMON NORMALS: Normal to inspection, nondistended, normoactive bowel sounds present, Soft to palpation, non-tender and no masses PALPATION: Yes Soft to palpation : COMMON NORMALS: Yes no CVA tenderness BLADDER/KIDNEY EXAM: Yes no CVA tenderness Back/Pelvis: COMMON NORMALS: no CVA tenderness LUMBAR SPINE/LOWER BACK: Yes paraspinal muscle tenderness Lumbar paraspinal muscle tenderness: bilateral Extremity: COMMON NORMALS: normal to inspection and no pedal edema Neuro: COMMON NORMALS: patient oriented x3 SENSORIUM/ORIENTATION: Yes alert GAIT: Yes Normal gait present Skin: COMMON NORMALS: no rashes or lesions noted GENERAL SKIN EXAM: no rashes or lesions noted and dry skin Course Vital Signs: Vital signs: Vital Signs Temperature 98.1 F 08/05/19 12:18 Pulse Rate 84 08/05/19 17:10 Respiratory Rate 18 08/05/19 17:10 Blood Pressure 141/88 08/05/19 17:10 Pulse Oximetry 92 08/05/19 17:10 MDM - Abdominal Pain MDM Narrative: Medical decision making narrative: Patient is a 58-year-old female who comes into the ED with nausea/vomiting and right upper quadrant and epigastric pain. White blood cell count was 8.2, sodium 132. EKG showed normal sinus rhythm and troponins were negative ruling out any cardiac cause of epigastric pain. Ultrasound showed 3 mm thick gallbladder with biliary sludge and mildly dilated hepatic ducts. CT of the abdomen showed Dilated common bile duct small defect along the distal aspects of the common bile duct, Diverticulosis with local diverticulitis of the distal descending colon sigmoid colon and low-grade ileus in the mid abdomen. Patient was given about 2 L of IV fluid and her nausea was controlled with Zofran and pain controlled with morphine and Dilaudid. Patient was discharged with biliary colic and diverticulitis. A referral to general surgery was placed with case management. Patient was sent home with a prescription for Augmentin, Zofran and written prescription for hydrocodone 7.5/325mg 12 tabs. I talked with patient about advancing her diet slowly and starting with just water and clear liquids for the first 24 hours. Patient was told to return to the ED she has any worsening symptoms. Call your PCP and set up an appointment for reevaluation in 5 to 7 days. Patient understood and agreed with plan. Lab Data: Attestation: I reviewed the patient's lab results. Labs: Lab Results 08/05/19 08/05/19 08/05/19 Range/Units 12:00 12:00 12:00 WBC 8.2 (4.0-10.0) 10^3/ uL RBC 5.39 H (4.1-5.3) 10^6/u L Hgb 16.7 H (11.5-15.3) g/dL Hct 48.7 H (37.0-47.0) % MCV 90.4 (81-99) fL MCH 31.0 (28.0-34.0) pg MCHC 34.3 (30.0-36.0) g/dL RDW 13.7 (12.1-15.1) % Plt Count 451 H (130-400) 10^3/c mm MPV 9.4 (7.4-10.4) fL Neut % (Auto) 61.7 % Lymph % (Auto) 24.5 % [place] % (Auto) 10.4 % Eos % (Auto) 2.2 % Baso % (Auto) 0.6 % Neut # (Auto) 5.1 (1.8-7.7) 10^3/u L Lymph # (Auto) 2.0 (0.8-4.8) 10^3/u L [place] # (Auto) 0.9 (0.2-0.9) 10^3/u L Eos # (Auto) 0.2 (0.0-0.8) 10^3/u L Baso # (Auto) 0.1 (0.0-0.1) 10^3/u L Nucleated RBC % (a uto) 0 % Nucleated RBCs # 0.0 /100WBC Sodium 132 L (136-145) mmol/L Potassium 4.1 (3.5-5.1) mmol/L Chloride 90 L (98-107) mmol/L Carbon Dioxide 25 (22-29) mmol/L Anion Gap 21.1 H (5-19) BUN 9 (6-20) mg/dL Creatinine 0.6 (0.5-0.9) mg/dL GFR Calculation 103.4 (90-130) mL/min Glucose 145 H (65-115) mg/dL Calculated Osmolal ity 273 L (285-295) mOsm/k g Calcium 10.0 (8.5-10.5) mg/dL Total Bilirubin 0.5 (0.15-1.2) mg/dL AST 21 (0-32) U/L ALT 19 (0-33) U/L Alkaline Phosphata se 89 (35-105) IU/L Troponin T Baselin e 7 (0-10) ng/L Troponin T 120 Min [place] (0-10) ng/L Delta Troponin T (0-10) ABS# Total Protein 7.9 (6.6-8.7) g/dL Albumin 4.9 (3.5-5.2) g/dL Globulin 3.0 (1.3-4.6) g/dL Lipase 34 (13-60) U/L Urine Color (Yellow) Urine Appearance (CLEAR) Urine pH (5-7) Ur Specific Gravit y (1.005-1.030) Urine Protein (Negative) Urine Glucose (UA) (Normal) Urine Ketones (Negative) Urine Blood (Negative) Urine Nitrate (Negative) Urine Bilirubin (NEGATIVE) Urine Urobilinogen (Negative) mg/dL Ur Leukocyte Danya ase (Negative) Urine RBC (0-2) /hpf Urine WBC (0-5) /hpf Ur Squamous Epith Cells (0-5) Urine Bacteria (NONE) H. pylori IgG Anti body (Negative) 08/05/19 08/05/19 08/05/19 Range/Units 12:00 14:04 14:46 WBC (4.0-10.0) 10^3/ uL RBC (4.1-5.3) 10^6/u L Hgb (11.5-15.3) g/dL Hct (37.0-47.0) % MCV (81-99) fL MCH (28.0-34.0) pg MCHC (30.0-36.0) g/dL RDW (12.1-15.1) % Plt Count (130-400) 10^3/c mm MPV (7.4-10.4) fL Neut % (Auto) % Lymph % (Auto) % [place] % (Auto) % Eos % (Auto) % Baso % (Auto) % Neut # (Auto) (1.8-7.7) 10^3/u L Lymph # (Auto) (0.8-4.8) 10^3/u L [place] # (Auto) (0.2-0.9) 10^3/u L Eos # (Auto) (0.0-0.8) 10^3/u L Baso # (Auto) (0.0-0.1) 10^3/u L Nucleated RBC % (a uto) % Nucleated RBCs # /100WBC Sodium (136-145) mmol/L Potassium (3.5-5.1) mmol/L Chloride (98-107) mmol/L Carbon Dioxide (22-29) mmol/L Anion Gap (5-19) BUN (6-20) mg/dL Creatinine (0.5-0.9) mg/dL GFR Calculation (90-130) mL/min Glucose (65-115) mg/dL Calculated Osmolal ity (285-295) mOsm/k g Calcium (8.5-10.5) mg/dL Total Bilirubin (0.15-1.2) mg/dL AST (0-32) U/L ALT (0-33) U/L Alkaline Phosphata se (35-105) IU/L Troponin T Baselin e (0-10) ng/L Troponin T 120 Min [place] 6.39 (0-10) ng/L Delta Troponin T -0.61 L (0-10) ABS# Total Protein (6.6-8.7) g/dL Albumin (3.5-5.2) g/dL Globulin (1.3-4.6) g/dL Lipase (13-60) U/L Urine Color Straw (Yellow) Urine Appearance Clear (CLEAR) Urine pH 7 (5-7) Ur Specific Gravit y 1.005 (1.005-1.030) Urine Protein Neg (Negative) Urine Glucose (UA) Norm (Normal) Urine Ketones Negative (Negative) Urine Blood Neg (Negative) Urine Nitrate Negative (Negative) Urine Bilirubin Neg (NEGATIVE) Urine Urobilinogen Norm (Negative) mg/dL Ur Leukocyte Danya ase Negative (Negative) Urine RBC None (0-2) /hpf Urine WBC 0-4 H (0-5) /hpf Ur Squamous Epith Cells 0-4 H (0-5) Urine Bacteria Trace (NONE) H. pylori IgG Anti body Negative (Negative) Imaging Data ^: US: Attestation: I personally reviewed and interpreted this imaging study as follows: Radiologist's impression: [address] [address] Ultrasound Report Signed Patient: Dayanara Singleton Unit #: [id number] : 1960 Age/Sex: 58 / F ADM Date: 08/05/19 Loc: ER Room/Bed: Attending Dr: Ordering Provider/Ordering MD: Hector Mercado Date of Service: 08/05/19 Procedure(s): US gall bladder [id number] Accession Number(s): [id number] Report Number: [id number] WS: [id number] ABDOMINAL ULTRASOUND LIMITED REASON FOR VISIT: epigstric pain RUQ tender, N/V TECHNIQUE: Grayscale and Doppler ultrasound examination of the abdomen. FINDINGS: Pancreas: Pancreatic duct mildly dilated measured 0.38 cm. There is no masses seen in the head, IV, or tail of pancreas Abdominal aorta and IVC: Normal Liver: Liver measures 19.3 cm in length. Worse reflective pattern consistent with fatty infiltration. Hepatopedal l circulation normal . Gallbladder: Gallbladder wall thickness measures 0.3 mm. Biliary sludge present common bile duct measures 0.68 cm Right kidney: Right kidney measures 11.2 cm x 6.2 cm x 4.1 cm. Right kidney cortex measures measured 1.42 cm cm. No hydronephrosis. A cyst is seen along the superior pole. US/US gall bladder [id number] IMPRESSION: Thickened wall gallbladder with biliary sludge Fatty infiltration of the liver The hepatic duct is mildly dilated but no other pathology is seen. Hepatomegaly Dictated By: Rolando Jackson DO Signed By: Rolando Jackson DO Signed Date/Time: 08/05/19 1422 DD/ 1417 CXR: Attestation: I personally reviewed and interpreted this imaging study as follows: Radiologist's impression: [address] [address] XRay Report Signed Patient: Dayanara Singleton Unit #: [id number] : 1960 3 Age/Sex: 58 / F ADM Date: 08/05/19 Loc: ER Room/Bed: Attending Dr: Ordering Provider/Ordering MD: Hector Mercado Date of Service: 08/05/19 Procedure(s): XR chest 1V portable [id number] Accession Number(s): [id number] Report Number: [id number] WS: [id number] XR chest 1V portable [id number] REASON FOR EXAM: epigastric pain FINDINGS: The heart and mediastinal interfaces normal. No hiatal hernias are seen. The lung mckay are well aerated. No pneumonia, pleural effusion, pulmonary edema, or mass effect. The hilum and apices are normal. No osseous abnormalities. XR/XR chest 1V portable 22165 IMPRESSION: Negative chest Dictated By: Rolando Jackson DO Signed By: Rolando Jackson DO Signed Date/Time: 08/05/191334 DD/ 33 CT Abd/Pel: Attestation: I personally reviewed and interpreted this imaging study as f charla: Radiologist's impression: [facility] [address] [place] [address] CT Scan Report Signed Patient: Dayanara Singleton Unit #: [id number] : 1960 Age/Sex: 58 / F ADM Date: 08/05/19 Loc: ER Room/Bed: Attending Dr: Ordering Provider/Ordering MD: Hector Mercado Date of Service: 08/05/19 Procedure(s): CT abdomen pelvis w con* [id number] Accession Number(s): [id number] Report Number: [id number] WS: [id number] CT abdomen pelvis w con* [id number] REASON FOR EXAM: abdom pain with n/v IV CONTRAST ADMINISTERED: Omnipaque 300, 95 mL TOTAL EXAM DLP: 912.[address] scans at [facility] use at least one of these dose optimization techniques: automated exposure control; mA and/or kV adjustment per patient size (includes targeted exams where dose is matched to clinical indication); or iterative reconstruction. FINDINGS: The mediastinum and lower lungs are normal. The liver shows normal enhancement no lesions are identified. Distally The pancreas head, body, tail are normal. The gallbladder appears to be normal. The common bile duct is dilated measures 1.14 cm a questionable stone or polyp is seen in the common bile duct On previous exam dated April 20, 2018 appear to be fluid accumulation at the operative site of the hiatal hernia. This was not seen today. The adrenal glands are normal. The spleen was normal as well as the stomach. The right kidney is a cystic lesion measures 4.76 cm. A small 1 mm cyst is seen in the left kidney and a small additional cysts 1 mm in the right kidney. Both ureters are patent. In the upper abdomen there is localized ileus with air-fluid levels seen. The right colon was normal There is diverticulosis of the transverse and descending colon. There is low- grade is swelling of the soft tissues surrounding the distal descending colon suggesting low-grade diverticulitis. The urinary bladder was not fully distended A uterus is not noted. No adnexal masses. IMPRESSION: Dilated common bile duct small defect along the distal aspects of the common bile duct may represent a small polyp. This was seen on previous exam exposed September 20, 2018 Large cyst cyst of the right kidney The gallbladder was normal. As well as the pancreas. Diverticulosis with local diverticulitis of the distal descending colon sigmoid colon Low-grade ileus in the mid abdomen. Dictated By: Rolando Jackson DO Signed By: Rolando Jackson DO Signed Date/Time: 08/05/19 1513 DD/ 1502 EKG Data ^: EKG 1: Attestation: I personally reviewed and interpreted this EKG as follows: EKG interpretation date: 08/05/19 Interpretation: Normal sinus rhythm, 84 bpm, P waves present, no ST segment elevation or depression seen. Discharge Plan Discharge Patient Disposition: Home, Self-Care Clinical Impression: Biliary colic, Diverticulitis Condition: Stable Prescriptions: New Zofran 4 mg tablet 4 mg PO DAILY Qty: 20 RF: 0 Augmentin 500-125 mg tablet 1 tab PO BID 10 Days Qty: 20 RF: 0 No Action atorvastatin 40 mg tablet 40 mg PO DAILY RF: 0 quetiapine 100 mg tablet 100 mg PO BEDTIME RF: 0 (DME) Wheelchair Qty: 1 RF: 0 amlodipine 10 mg tablet 10 mg PO DAILY RF: 0 metoprolol succinate 100 mg tablet extended release 24 hr 100 mg PO QPM RF: 0 fluvoxamine 50 mg tablet 50 mg PO DAILY RF: 0 albuterol sulfate [ProAir HFA] 90 mcg/actuation HFA aerosol inhaler 1 puff INHALATION QID PRN (Reason: Shortness Of Breath) RF: 0 Calcium 600 + Minerals 600 mg calcium- 200 unit Tablet 1 tab PO DAILY RF: 0 Multiple Vitamins Tablet 1 tab PO DAILY RF: 0 meloxicam 15 mg tablet 15 mg PO DAILY RF: 0 Discharge Orders: Discharge Order (Routine); Ordered 08/05/19 Ordered By: Hector Mercado Referrals: Marianne Mirza PA [Primary Care Provider] - Discharge Diet: Advance as tolerated Discharge Activity: Increase activity as tolerated Patient Instructions: Full Liquid Diet, Diverticulitis (ED), Biliary Colic (ED), Clear Liquid Diet (ED), Diverticulitis Diet (ED) Activity Restrictions/Additional Instructions: Call your PCP and set up an appointment with them in 5 days for reevaluation. Case management should be contacting you to set up an appointment with general surgery. Take full course of antibiotics as prescribed. Take Zofran as prescribed for nausea. Sending you home with a prescription for [place] and use this for pain. Remember to advance diet slowly and for the next 24 hours just drink clear fluids and no solid foods. Then try full liquids and continue to slowly advance after that. Discharge Date/Time: 08/05/19 17:10 Coding Level of Care Code ED Core Dipper for Adan Fwsergio Exam Comprehensive
--- NOTE | 2019-08-05 13:04 | US_ITS ---
WS: [id number] ABDOMINAL ULTRASOUND LIMITED REASON FOR VISIT: epigstric pain RUQ tender, N/V TECHNIQUE: Grayscale and Doppler ultrasound examination of the abdomen. FINDINGS: Pancreas: Pancreatic duct mildly dilated measured 0.38 cm. There is no masses seen in the head, IV, o r tail of pancreas Abdominal aorta and IVC: Normal Liver: Liver measures 19.3 cm in length. Worse reflective pattern consistent with fatty infiltration. Hepatopedal l circulation normal . Gallbladder: Gallbladder wall thickness measures 0.3 mm. Biliary sludge present common bile duct ernesto ures 0.68 cm Right kidney: Right kidney measures 11.2 cm x 6.2 cm x 4.1 cm. Right kidney cortex measu res measured 1.42 cm cm. No hydronephrosis. A cyst is seen along the superior pole. US/US gall bladder [id number] IMPRESSION: Thickened wall gallbladder with biliary sludge Fatty infiltration of the liver The hepatic duct is mildly dilated but no other pathology is seen. Hepatomegaly
--- NOTE | 2019-08-05 13:04 | XR_ITS ---
WS: [id number] XR chest 1V portable [id number] REASON FOR EXAM: epigastric pain FINDINGS: The heart and mediastinal interfaces normal. No hiatal hernias are seen. The lung mckay are well aerated. No pneumonia, pleural effusion, pulmonary edema, or mass effect. The hilum and apices are normal. No osseous abnormalities. XR/XR chest 1V portable [id number] IMPRESSION: Negative chest
[2019-08-05 13:09] LABS: Alanine Aminotransferase 19 U/L (0-33); Albumin Level 4.9 g/dL (3.5-5.2); Alkaline Phosphatase 89 IU/L (35-105); Anion Gap 21.1 (5-19); Aspartate Amino Transferase 21 U/L (0-32); Blood Urea Nitrogen 9 mg/dL (6-20); Carbon Dioxide 25 mmol/L (22-29); Chloride 90 mmol/L (98-107); Creatinine Clr Calc Pharmacy 94.6638; Glomerular Filtration Rate 103.4 mL/min (90-130); Glucose 145 mg/dL (65-115); Lipase 34 U/L (13-60); Osmolality Calculated 273 mOsm/kg (285-295); Potassium 4.1 mmol/L (3.5-5.1); Sodium 132 mmol/L (136-145); Total Bilirubin 0.5 mg/dL (0.15-1.2); Total Protein 7.9 g/dL (6.6-8.7)
[2019-08-05] MEDS: ondansetron 2 mg/ML SDV 2 mL 4 MG IVP ×2 (13:28→15:12)
[2019-08-05 13:29] VITALS: RESP 18
[2019-08-05] MEDS: morphine 4 mg/mL SDV 1 mL IVP ×2 (13:29→15:13)
[2019-08-05 13:43] LABS: Troponin(5th) Baseline 7 ng/L (0-10)
--- NOTE | 2019-08-05 14:15 | CT_ITS ---
WS: [id number] CT abdomen pelvis w con* [id number] REASON FOR EXAM: abdom pain with n/v IV CONTRAST ADMINISTERED: Omnipaque 300, 95 mL TOTAL EXAM DLP: 912.[address] scans at [facility] use at least one of these dose optimization techniques: automat ed exposure control; mA and/or kV adjustment per patient size (includes targeted exams where dose is matched to clinical indication); or iterative reconstruction. FINDINGS: The mediastinum and lower lungs are normal. The liver shows normal enhancement no lesions are identified. Distally The pancreas head, body, tail are normal. The gallbladder appears to be normal. The common bile duct is dilated measures 1.14 cm a questionable stone or polyp is seen in the common bile duct On previous exam dated April 20, 2018 appear to be fluid accumulation at the operative site of the hia cl hernia. This was not seen today. The adrenal glands are normal. The spleen was normal as well as the stomach. The right kidney is a cystic lesion measures 4.76 cm. A small 1 mm cyst is seen in the left kidney an d a small additional cysts 1 mm in the right kidney. Both ureters are patent. In the upper abdomen there is localized ileus with air-fluid levels seen. The right colon was normal There is diverticulosis of the transverse and descending colon. There is low-grade is swelling of the soft tissues surrounding the distal descending colon suggesting low-grade diverticulitis. The urinary bladder was not fully distended A uterus is not noted. No adnexal masses. IMPRESSION: Dilated common bile duct small defect along the distal aspects of the common bile duct may represent a small polyp. This was seen on previous exam exposed September 20, 2018 Large cyst cyst of the right kidney The gallbladder was normal. As well as the pancreas. Diverticulosis with local diverticulitis of the distal descending colon sigmoid colon Low-grade ileus in the mid abdomen.
[2019-08-05 14:28] LABS: Troponin 5 2HR 6.39 ng/L (0-10)
[2019-08-05 14:29] LABS: Troponin 5 2HR Delta -0.61 ABS# (0-10)
[2019-08-05 14:54] LABS: H. Pylori IgG Antibody Negative (Negative)
[2019-08-05] MEDS: iohexol 300 mg/mL 100 mL Btl IV (14:54)
--- NOTE | 2019-08-05 15:04 | ECG_ITS ---
Measurements Intervals [place] Rate: 84 P: 49 SC: 181 QRS: 60 QRSD: 94 T: 59 QT: 384 QTc: 455 SINUS RHYTHM POSSIBLE RIGHT VENTRICULAR CONDUCTION DELAY [RSR (QR) IN V1/V2] Compared to ECG 02/21/2019 14:14:29 No significant changes Electronically Signed On 08-05-2019 20:36:17 CDT by Jethro De Jesus M.D. [email or web address]
[2019-08-05] MEDS: sodium chloride 0.9% 1,000 ML 999 ML IV (15:12)
[2019-08-05] MEDS: pantoprazole 40 mg SDV IVP (15:12)
[2019-08-05 15:13] VITALS: RESP 18
[2019-08-05 15:15] LABS: Bilirubin Urine Neg (NEGATIVE); Blood Urine Neg (Negative); Glucose Urine UA Norm (Normal); Ketones Urine Negative (Negative); Leukocyte Esterase Urine Negative (Negative); Nitrate Urine Negative (Negative); Protein Urine Neg (Negative); Specific Gravity, Urine 1.005 (1.005-1.030); Urine Appearance Clear (CLEAR); Urine Color Straw (Yellow); Urobilinogen Urine Norm (Negative); pH Urine 7 (5-7)
[2019-08-05 15:16] LABS: Add Urine Culture? No; Bacteria Urine TRACE; Squamous Epithelial Cell Urine 0-4 (0-5); WBC Urine 0-4 /hpf (0-5)
[2019-08-05 15:22] VITALS: BP 128/80; PULSE 86; RESP 18; O2SAT 95
[2019-08-05] MEDS: amoxicillin-clav 500-125 mg Tablet 1 TAB PO (16:50)
[2019-08-05 16:51] VITALS: RESP 18
[2019-08-05] MEDS: HYDROmorphone 1 mg/mL INJ 1 mL IVP (16:51)
[2019-08-05 17:10] VITALS: BP 141/88; PULSE 84; RESP 18; O2SAT 92
--- NOTE | 2019-08-06 13:08 | DCPLANNER ---
health safety and environment manager had message to schedule a follow up appointment for patient with general surgery. health safety and environment manager called [facility], spoke with Michelle, gave clinic patients information. A follow up appointment is scheduled for Monday, August 12, 2019 at 10:[address] Cuevas. Clinic will call patient with appointment information.
--- NOTE | 2019-08-16 14:27 | DCPLANNER ---
Patient did attend follow up appointment scheduled with [facility].
== END 2019-08-05 17:10 | disposition home or self-care (01) ==
PROVIDERS: Emergency Provider Physician Assistant; PCP Physician Assistant
DX: K80.50 Calculus of bile duct without cholangitis or cholecystitis without obstruction (principal); K57.92 Diverticulitis of intestine, part unspecified, without perforation or abscess without bleeding; I10 Essential (primary) hypertension; F17.210 Nicotine dependence, cigarettes, uncomplicated
CPT/HCPCS: 12345; 36415; 71045; 74177; 76705; 80053; 81001; 83690; 84484; 85025; 86677; 93005; 96360; 96361; 96365; 96374; 96375; 96376; 99283; 99284; C9113; J1170; J2270; J2405; J7030; Q9967

== ENCOUNTER 2019-08-15 09:43 | Day surgery (SDC) | payer MEDICAID, SELFPAY ==
[2019-08-13 13:35] VITALS: BMI 28.3
[2019-08-15 10:35] VITALS: BP 121/76; PULSE 84; RESP 18; TEMP 36.7; O2SAT 96
[2019-08-15] MEDS: sodium chloride 0.9% 1,000 ML 30 ML IV (10:49)
--- NOTE | 2019-08-15 11:33 | ANES.PREANE2 ---
Pre-Anesthetic Assessment Pre-Anesthetic Assessment: Height/Weight: Height 1.57 m Weight 70.307 kg Temp Pulse Resp BP Pulse Ox 98.1 F 84 18 121/76 96 08/15/19 10:35 08/15/19 10:35 08/15/19 10:35 08/15/19 10:35 08/15/19 10:35 Preop Diagnosis: Abdominal pain Proposed Procedure: Operation Date: 08/15/19 10:15 Proposed Procedures p EGD/COLON with poss biopsy [id number] R10.9 K57.92(Not Applicable) - Giorgio Perez MD s Colonoscopy(Not Applicable) - Giorgio Perez MD Was Beta Avinash taken within 24 hours: N/A Last intake: Intake Last Liquid Date 08/14/19 Last Liquid Time 20:00 Last Solid Date 08/13/19 Last Solid Time 22:00 Social: Social History: No alcohol Packs per day: 1 p/d Pack years: 40 Exam: Pre-Anes Outpt Exam: alert, oriented x 3, clear to auscultation bilaterally and regular rate & rhythm Airway: Submandibular: WNL Cervical ROM: WNL Dentition: Loose (front lower) History/ROS: No significant history except as noted Pulmonary: Pulmonary: COPD and SOB (with mild exertion) CV/HEM: CV/HEM: HTN : : None reported Hepatic: Hepatic: None reported GI: GI: GERD Metabolic: Metabolic: None reported Musc/skel: Musc/skel: OA/DJD Neuropsych: Neuropsych: Anxiety, Depression and Neuropathy Anesthetic Plan: ASA status: 2 Anesthesia: Anesthesia Evaluation and MAC Risk of > 500 ml blood loss (7ml/kg in children): No Meds/Allergies Current Medications: Current Medications Generic Name Dose Route Start Last Admin Trade Name Freq PRN Reason Stop Dose Admin Sodium Chloride 1,000 mls @ 30 ml s/hr 08/15/19 10:30 08/15/19 10:49 Sodium Chloride 0.9% IV 08/16/19 10:29 30 mls/hr .Q24H DANILO Administration PFSH Anesthesia PFSH: Medical History (Updated 08/13/19 @ 00:00 by ) Anxiety Depression Hypertension Intervertebral disc disorder with radiculopathy of lumbosacral region Joint instability Lumbar stenosis with neurogenic claudication Pain due to internal orthopedic prosthetic devices, implants and grafts, initial encounter This was addressed with the revision total knee arthroplasty involving exchange of the tibial insert with synovectomy. Spondylisthesis Surgical History H/O tubal ligation History of total knee arthroplasty Right History of total right knee replacement Hx of colonoscopy with polypectomy Hx of inguinal hernia repair Hx of umbilical hernia repair Family History Mother Cancer Lung Father CAD (coronary artery disease) Stroke FH: brain aneurysm Brother Cancer Denies family history of Anesthesia complication Bleeding disorder Social History Smoking and tobacco status: current every day smoker cigarettes Packs smoked per day: 1 Alcohol intake: current Lives independently: No Household members: none Housing: House Marital status: Legally service: No Current occupational status: disabled History of recent travel: No Data Anesthesia Cardiac Studies: No Data to Display
--- NOTE | 2019-08-15 11:35 | W.PM.OPSUD ---
Surgery/Procedure H&P Update DATE OF PROCEDURE: August 15, 2019 DATE H&P PERFORMED: 08/09/19 H&P UPDATE INFORMATION: I have reviewed H&P completed within last 30 days, I have examined patient prior to procedure and No changes to prior documentation PREOP DIAGNOSIS: Abdominal pain PLANNED PROCEDURE: Operation Date: 08/15/19 10:15 Proposed Procedures p EGD/COLON with poss biopsy [id number] R10.9 K57.92(Not Applicable) - Giorgio Perez MD s Colonoscopy(Not Applicable) - Giorgio Perez MD
[2019-08-15 12:12] VITALS: BP 127/74; PULSE 70; RESP 16; TEMP 36.6; O2SAT 93
[2019-08-15 12:23] VITALS: BP 136/88; PULSE 76; RESP 18; O2SAT 96
== END 2019-08-15 12:35 | disposition home or self-care (01) ==
PROVIDERS: PCP Physician Assistant; Visit Provider Surgery
PROC: 0DJ08ZZ Inspection of Upper Intestinal Tract, Via Natural or Artificial Opening Endoscopic (ICD-10-PCS; CPT 43235; principal; 2019-08-15 10:15)
PROC: 0DJD8ZZ Inspection of Lower Intestinal Tract, Via Natural or Artificial Opening Endoscopic (ICD-10-PCS; CPT 45378; 2019-08-15 10:15)
DX: R10.9 Unspecified abdominal pain (principal); Z86.010 Personal history of colon polyps; K57.30 Diverticulosis of large intestine without perforation or abscess without bleeding; K64.8 Other hemorrhoids; I10 Essential (primary) hypertension; J44.9 Chronic obstructive pulmonary disease, unspecified; K21.9 Gastro-esophageal reflux disease without esophagitis; M19.90 Unspecified osteoarthritis, unspecified site; F41.9 Anxiety disorder, unspecified; F32.9 Major depressive disorder, single episode, unspecified; F17.210 Nicotine dependence, cigarettes, uncomplicated
CPT/HCPCS: 12345; 43239; 45380; 88305; J2704; J7030

== ENCOUNTER → 2019-12-30 16:00 | Outpatient (BNVA) | payer MEDICAID, SELFPAY | PROVIDERS: PCP Physician Assistant; Visit Provider Orthopaedic Surgery | DX: Z11.59 Encounter for screening for other viral diseases (principal); M47.816 Spondylosis without myelopathy or radiculopathy, lumbar region | CPT/HCPCS: 87635 ==

== ENCOUNTER 2020-01-06 10:17 | Inpatient (IN) | payer MEDICAID, SELFPAY ==
[2019-12-16 10:54] VITALS: BMI 28.3
--- NOTE | 2019-12-16 11:12 | ANES.PREANE2 ---
Pre-Anesthetic Assessment Pre-Anesthetic Assessment: Height/Weight: Height 1.57 m Weight 70.307 kg Preop Diagnosis: spondylolisthesis Proposed Procedure: Operation Date: 12/25/19 07:00 Proposed Procedures p Transforaminal lumbar interbody L4 Spinal Fusion 50851 M43.16 M48.062(Not Applicable) - Colin Ugarte DO Familial anesthetic complications: PONV - will place scopolamine patch morning of Social: Social History: Tobacco and No alcohol Exam: Pre-Anes Outpt Exam: alert, oriented x 3, clear to auscultation bilaterally and regular rate & rhythm Airway: MP: 1 Dentition: Other (missing) Pulmonary: Pulmonary: Cough (dry (chronic)) CV/HEM: CV/HEM: HTN GI: GI: GERD and Hiatus hernia Metabolic: Metabolic: DM Musc/skel: Musc/skel: OA/DJD Comments: 6 knee surgeries Anesthetic Plan: ASA status: 2 Anesthesia: General Risk of > 500 ml blood loss (7ml/kg in children): No PFSH Anesthesia PFSH: Medical History (Updated 12/09/19 @ 09:10 by Colin Ugarte DO) Anxiety Depression Diabetes Esophagitis History of colon polyps Hypertension Intervertebral disc disorder with radiculopathy of lumbosacral region Joint instability Lumbar stenosis with neurogenic claudication Pain due to internal orthopedic prosthetic devices, implants and grafts, initial encounter This was addressed with the revision total knee arthroplasty involving exchange of the tibial insert with synovectomy. Spondylisthesis Spondylolisthesis at L4-L5 level Surgical History H/O tubal ligation History of total knee arthroplasty Right History of total right knee replacement Hx of colonoscopy with polypectomy (08/15/19) diverticulosis and polyps Hx of inguinal hernia repair Hx of umbilical hernia repair Family History Mother Cancer Lung Father CAD (coronary artery disease) Stroke FH: brain aneurysm Brother Cancer Denies family history of Anesthesia complication Bleeding disorder Social History Smoking and tobacco status: current every day smoker cigarettes Packs smoked per day: 1 Alcohol intake: current Lives independently: No Household members: none Housing: House Marital status: Legally service: No Current occupational status: disabled History of recent travel: No Data Anesthesia Cardiac Studies: No Data to Display
[2020-01-06] VITALS (22 sets, daily range): BP systolic 96–127; BP diastolic 63–92; PULSE 88–116; RESP 16–20; TEMP 36.2–36.9; O2SAT 91–99
--- NOTE | 2020-01-06 | SCC_ITS ---
Procedure Done: 1. Interbody with posterolateral fusion L4/5 2. posterior instrumentation L4/5 3. Interbody cage L4/5 4. Laminecomy L4 5. Use of autograft 6. Use of allograft 7. Bone marow aspirate 26.2 seconds of fluoroscopic guidance, for a cumulative dose of 76.38 mGy, was provided to Dr. Ugarte by the radiology department. C-arm images of the lumbar spine were saved for the patient's permanent record. YORDAN
--- NOTE | 2020-01-06 | XR_ITS ---
WS: [id number] AP and lateral intraoperative C-arm images of the lower lumbar spine are submitted for evaluation. There is operative fusion of the posterior elements of L4 and L5 with pedicle screws and posterior ro ds. A disc spacer is noted at the L4-5 level. Orthopedic hardware appears to be in satisfactory align ment and position. Surgical retractors are also noted.
[2020-01-06 06:37] LABS: Glucose Point of Care 137 mg/dL (70-110)
--- NOTE | 2020-01-06 06:40 | P.ANESUD_ITS ---
Pre-Anesthetic Update Pre-Anesthetic Assessment: Date of Surgery/Procedure: 01/06/20 Preop Awa gnosis: spondylolisthesis Proposed Procedure: Operation Date: 01/06/20 07:00 Proposed Procedures p Transforaminal lumbar interbody L4 Spinal Fusion 95910 M43.16 M48.062(Not Applicable) - Colin Ugarte, DO Any changes to Pre-Anesthetic Assessment?: No Last Intake: Intake Last Liquid Date 01/05/20 Last Liquid Time 23:00 Last Solid Date 01/05/20 Last Solid Time 19:00 Labs Last 48hrs: Laboratory Results - last 48 hr 01/06/20 06:30 POC Glucose 137 Vitals: Temperature 97.6 F 01/06/20 06:14 Temperature Source Temporal Artery S can 01/06/20 06:14 Pulse Rate 116 H 01/06/20 06:14 Respiratory Rate 18 01/06/20 06:14 Blood Pressure 113/92 01/06/20 06:14 Blood Pressure Anupama n 99 01/06/20 06:14 Pulse Oximetry 98 01/06/20 06:14 Oxygen Delivery Me thod 01/06/20 06:14 Exam: Pre-Anes Outpt Exam: alert, oriented x 3, clear to auscultation bilaterally and regular rate & rhythm Cardiac Studies: No Data to Display
[2020-01-06] MEDS: sodium chloride 0.9% 1,000 ML 30 ML IV (06:42)
[2020-01-06] MEDS: gabapentin 300 mg Capsule PO (06:43)
[2020-01-06] MEDS: scopolamine 1.5 Patch 1 PATCH TRANSDERMA (06:43)
--- NOTE | 2020-01-06 06:56 | W.PM.OPSUD ---
Surgery/Procedure H&P Update DATE OF PROCEDURE: January 06, 2020 DATE H&P PERFORMED: 12/09/19 H&P UPDATE INFORMATION: I have reviewed H&P completed within last 30 days, I have examined patient prior to procedure and No changes to prior documentation PREOP DIAGNOSIS: spondylolisthesis PLANNED PROCEDURE: Operation Date: 01/06/20 07:00 Proposed Procedures p Transforaminal lumbar interbody L4 Spinal Fusion 46558 M43.16 M48.062(Not Applicable) - Colin Ugarte DO
[2020-01-06] MEDS: heparin, porcine 1,000 unit/mL INJ 10 mL 10000 UNIT IRRIGATION (08:07)
--- NOTE | 2020-01-06 09:36 | PM.OP ---
Operative Report Date of procedure: January 06, 2020 Pre-op Diagnosis: spondylolisthesis L4/5 Post-op diagnosis: same Procedure Done: 1. Interbody with posterolateral fusion L4/5 2. posterior instrumentation L4/5 3. Interbody cage L4/5 4. Laminecomy L4 5. Use of autograft 6. Use of allograft 7. Bone marow aspirate Surgeon: Colin Ugarte Anesthesia: General Estimated blood loss (mL): 50 Condition: stable Disposition: PACU Procedure: 1. Interbody with posterolateral fusion L4/5 2. posterior instrumentation L4/5 3. Interbody cage L4/5 4. Laminecomy L4 5. Use of autograft 6. Use of allograft 7. Bone marow aspirate 8. reduction of spondylolisthesis Patient was brought to the operative suite placed in the prone position after electro monitoring neuro monitoring was hooked up. Of note there were no issues with neuro monitoring throughout the entire case. Once in the prone position all areas of impingement were well padded patient was prepped and draped normal sterile fashion. Skin incision was made over the L4-5 level this was identified under C arm guidance. Subperiosteal dissection was made out to the edges of the facet joints of L4-5 and L3-4. Pedicle screws were then prepped to be placed. Prior to doing this however bone marrow aspirate was taken from the L5 pedicle on the left this was done using the region of cell kit. 10 cc of bone marrow aspirate were taken. From the pedicle of L5 on the left. Next pedicle screws were placed at L5 bilaterally and L4 bilaterally this was done using a drill followed by pedicle gearshift finder and then pedicle feeler. Once all screws were placed then decortication of the facet joints were done using the rongeur. Then the microscope was brought in and laminectomy of L4 was performed along with taking out the facet joint of the left side medially. This was done with a drill and Kerrison and curettes under the microscope. L5 nerve root was protected disc space was identified a small scar was made with a knife followed by brandon up to a 9 endplates were scraped with curettes and then a 9 lordotic cage from [employer] was placed bone graft was packed anteriorly this was osteoamp allograft. Osteoamp. was also packed into the cage. The the rods were then attached to the L5 screws. And then reduction towers placed on the L4 screw and the spondylolisthesis was reduced. And then this was done on the right and left side and then they work compressed. And then the osteoamp and autograft were packed into the facets bilaterally lateral to the facets. AP lateral fluoroscopy ensured that the hardware was improved position and the L4-5 spondylolisthesis was reduced. Wounds were irrigated and then closed with 0 Vicryl 2-0 Vicryl and Monocryl and skin glue. Sterile dressings were applied patient was transferred to the PACU in stable condition.
[2020-01-06] MEDS: fentaNYL 50 mcg/mL INJ 2mL IVP ×2 (10:02→15:28)
[2020-01-06] MEDS: sodium chloride 0.9% 1,000 ML 100 ML IV (10:23)
--- NOTE | 2020-01-06 11:03 | P.CONIM_ITS ---
Providers/Reason For Consult Consulting Physican/Specialty*: Omar Fitzpatrick hospitalist Reason for Consult*: Medical management Attending Physician: Colin Ugarte DO Primary Care Provider: Marianne Mirza History of Present Illness History of Present Illness Dayanara Singleton is a 59 year old female that presented today for surgery, laminectomy L4 and L4/5 fusion. Patient is somewhat sleepy, but able to answer few questions. She reports some low back pain. She states she is thirsty. She denies any chest pain, shortness of breath. From my understanding she was having chronic pain prior to the surgery, and needing surgery to improve the quality of her life. Review of Systems General: Reports: 10 or more systems reviewed and unremarkable except in HPI and below Const: Denies: fever(s) Eyes: Denies: change in vision ENMT: Denies: throat pain Card: Denies: chest pain Resp: Denies: dyspnea GI: Denies: abdominal pain : Denies: flank pain Musc: Reports: back pain Skin/Breast: Denies: rash Neuro: Denies: headache(s) Psych: Denies: anxiety Endo: Denies: polyuria Clyde/Lymph: Denies: easy bruising All/Imm: Denies: urticaria Meds/Allergies Home Medications and Allergies Home Medications Medication Instructions Recorded Confirmed Last Taken Type amlodipine 10 mg PO DAILY 02/21/19 12/16/19 01/06/20 History albuterol sulfate [ProAir HFA] 1 puff INHALATION QID PRN 02/26/19 12/16/19 Unknown History Wheelchair #1 ea 02/28/19 08/09/19 Unknown Rx quetiapine 100 mg tablet 100 mg PO BEDTIME 05/31/19 12/16/19 01/05/20 History pantoprazole [Protonix] 40 mg PO BIDWM 42 Days #42 tab 08/15/19 12/16/19 01/05/20 Rx sucralfate 1 gram tablet 1 gm PO Q6H PRN #120 tab 10/07/19 12/16/19 Unknown Rx atorvastatin 40 mg PO QPM 12/16/19 12/16/19 01/05/20 History fluticasone propionate 1 spray INTRANASAL DAILY 12/16/19 12/16/19 Unknown History metformin 500 mg PO BID 12/16/19 12/16/1920 History metoprolol succinate 100 mg PO DAILY 12/16/19 12/16/19 01/06/20 History hospital bed #1 ea NS 12/17/19 Unknown Rx Allergies Allergy/AdvReac Type Severity Reaction Status Date / Time meloxicam Allergy ADR-Abdominal Verified 12/16/19 10:45 Pain Current Medications Current Medications Generic Name Dose Route Start Last Admin Trade Name Freq PRN Reason Stop Dose Admin Fentanyl 50 mcg 01/06/20 06:01 01/06/20 10:02 Fentanyl 50 Mcg/Ml Inj 2ml IVP 01/07/20 06:01 50 mcg Q5M PRN Administration Pain level 6-10 PACU Phase I Sodium Chloride 1,000 mls @ 30 mls/hr 01/06/20 06:15 01/06/20 10:23 Sodium Chloride 0.9% IV 01/07/20 06:14 100 mls/hr .Q24H DAINLO Administration PFSH Acute PFSH: Medical History (Updated 01/06/20 @ 11:20 by Omar Fitzpatrick MD) Anxiety Depression Diabetes Esophagitis History of colon polyps Hypertension Intervertebral disc disorder with radiculopathy of lumbosacral region Joint instability Lumbar stenosis with neurogenic claudication Pain due to internal orthopedic prosthetic devices, implants and grafts, initial encounter This was addressed with the revision total knee arthroplasty involving exchange of the tibial insert with synovectomy. Spondylisthesis Spondylolisthesis at L4-L5 level Surgical History H/O tubal ligation History of total knee arthroplasty Right History of total right knee replacement Hx of colonoscopy with polypectomy (08/15/19) diverticulosis and polyps Hx of inguinal hernia repair Hx of umbilical hernia repair Family History Mother Cancer Lung Father CAD (coronary artery disease) Stroke FH: brain aneurysm Brother Cancer Denies family history of Anesthesia complication Bleeding disorder Social History Smoking and tobacco status: current every day smoker cigarettes Packs smoked per day: 1 Alcohol intake: current Lives independently: No Household members: none Housing: House Marital status: Legally service: No Current occupational status: disabled History of recent travel: No Vitals/I&O/Wt Last Vital Signs Temp 97.6 F 01/06/20 10:25 Pulse 88 01/06/20 10:25 Resp 18 01/06/20 10:25 BP 117/76 01/06/20 10:25 Pulse Ox 94 01/06/20 10:25 01/05/20 01/06/20 01/06/20 22:59 06:59 14:59 Intake Total 3050 / 3050 Output Total 50 / 50 Balance 3000 / 3000 Physical Exam Narrative: EXAM NARRATIVE: General exam is a white female, complaining of low back pain. HEENT: Pupils equally round. Oropharynx clear. Neck is supple no lymphadenopathy or thyromegaly Cardiovascular regular rate and rhythm without murmur, no S3 or S4 Lungs clear no wheezing or crackles Abdomen is soft nontender with positive bowel sounds. No obvious organomegaly was deferred Extremities no cyanosis clubbing nor edema. She can dorsiflex without any difficulty Skin without rash Neuro no obvious focal deficits. A&P Assessment and plan (1) Intervertebral disc disorder with radiculopathy of lumbosacral region: Patient is directly postoperative L4 laminectomy and L4/5 fusion. No complications with procedure. Expected length of hospital stay overnight. Status: Chronic (2) Diabetes: Hold Metformin Consistent carb diet Sliding scale insulin Status: Acute (3) Depression: Continue home medications Status: Acute (4) Hypertension: Continue home medications Status: Acute Additional A&P Information Tobacco dependency, with ill-defined history of chronic cough responsive to albuterol. Continue albuterol as needed. Discussed abstinence from tobacco. Hyperlipidemia, continue statin Full code DVT prophylaxis per primary Consult Attestations Medical Necessity Statement: As per primary Time Spent in Patient Care: Greater than 35 minutes Coding Level of Care Code Acute Personal Consultant for [facility] F[facility] Diagnoses Intervertebral disc disorder with radiculopathy of lumbosacral region M51.17 Diabetes E11.9 Depression F32.9 Hypertension I10
[2020-01-06 11:39] LABS: Glucose Point of Care 186 mg/dL (70-110)
[2020-01-06] MEDS: oxyCODONE 5 mg IR Tab/Cap PO (12:29)
[2020-01-06] MEDS: albuterol 8 gm MDI 1 PUFF INHALATION ×3 (13:40→20:15)
--- NOTE | 2020-01-06 14:15 | PM.PACU ---
PACU note Post-Anesthesia Exam: awake and vital signs stable Disposition: admitted
[2020-01-06] MEDS: morphine 4 mg/mL SDV 1 mL 1 MG IVP (15:55)
[2020-01-06] MEDS: lactated ringers 1,000 ML 90 ML IV (15:56)
[2020-01-06 17:04] LABS: Glucose Point of Care 181 mg/dL (70-110)
[2020-01-06] MEDS: ketorolac 30 mg/mL INJ IVP ×2 (17:05→23:47)
[2020-01-06] MEDS: atorvastatin 40 mg Tablet PO (17:05)
[2020-01-06] MEDS: docusate sodium 100 mg Capsule PO (17:05)
[2020-01-06] MEDS: pantoprazole DR 40 mg Tablet PO (17:05)
[2020-01-06] MEDS: oxyCODONE 5 mg IR Tab/Cap 10 MG PO (18:56)
[2020-01-06] MEDS: dexamethasone 4 mg/mL INJ 10 MG IVP (18:56)
[2020-01-06 21:46] LABS: Glucose Point of Care 331 mg/dL (70-110)
[2020-01-06] MEDS: quetiapine 100 mg Tablet PO (22:04)
[2020-01-06] MEDS: sucralfate 1 gm Tablet PO (22:33)
[2020-01-06] MEDS: morphine 4 mg/mL SDV 1 mL 2 MG IVP (22:38)
[2020-01-07] VITALS (13 sets, daily range): BP systolic 113–134; BP diastolic 73–80; PULSE 88–110; RESP 16–19; TEMP 36.3–36.7; O2SAT 90–95
[2020-01-07] MEDS: lactated ringers 1,000 ML 90 ML IV (04:59)
[2020-01-07] MEDS: enoxaparin 40 mg/0.4 mL Syringe SUBCUT (05:01)
[2020-01-07] MEDS: morphine 4 mg/mL SDV 1 mL 2 MG IVP (05:01)
[2020-01-07 06:40] LABS: Glucose Point of Care 259 mg/dL (70-110)
--- NOTE | 2020-01-07 06:58 | P.PN_ITS ---
Subjective Subjective: Interval history: Mallory reports she is doing okay. Her neck actually hurts worse than her back today. She believes she strained it. She states she really has not gotten up with physical therapy yet. She denies any paresthesias. She states her blood sugar was very elevated last night as she had a large strawberry milkshake. Medications: Reviewed: Yes Vitals/I&O/Wt Last Vital Signs Temp 97.6 F 01/07/20 03:59 Pulse 110 H 01/07/20 03:59 Resp 18 01/07/20 05:01 BP 120/77 01/07/20 03:59 Pulse Ox 91 01/07/20 03:59 01/06/20 01/06/20 01/07/20 14:59 22:59 06:59 Intake Total 3290 / 3290 60 / 3350 1000 / 4350 Output Total 50 / 50 2200 / 2250 800 / 3050 Balance 3240 / 3240 -2140 / 1100 200 / 1300 Physical Exam Narrative: EXAM NARRATIVE: General exam no apparent distress Neck demonstrates good range of motion. Pain with palpation lateral to cervical spine Cardiovascular regular rate and rhythm without murmur, no S3 or S4 Lungs good air expansion. Faint expiratory wheeze noted. Abdomen is soft nontender with positive bowel sounds. No obvious organomegaly Extremities no cyanosis clubbing nor edema. Dorsiflexes on both sides without difficulty A&P Assessment and plan (1) Intervertebral disc disorder with radiculopathy of lumbosacral region: Postoperative day #1 status post L4 laminectomy and L4/5 fusion. No complications with procedure. Status: Chronic (2) Diabetes: Change diet to consistent carb Sliding scale insulin Metformin to be restarted when discharged. Status: Acute (3) Depression: Continue home medications Status: Acute (4) Hypertension: Continue home medications. Blood pressure is acceptable Status: Acute Additional A&P Information Tobacco dependency, with ill-defined history of chronic cough responsive to albuterol. Continue albuterol as needed. Discussed abstinence from tobacco. Hyperlipidemia, continue statin Full code DVT prophylaxis per primary Attestations Medical Necessity Statement*: As per primary Coding Level of Care Code Acute Care Connector for [facility] [place] Diagnoses Intervertebral disc disorder with radiculopathy of lumbosacral region M51.17 Diabetes E11.9 Depression F32.9 Hypertension I10
[2020-01-07] MEDS: fluticasone nasal spray 16gm Btl 1 SPRAY INTRANASAL (07:38)
[2020-01-07] MEDS: oxyCODONE 5 mg IR Tab/Cap 10 MG PO ×2 (07:39→11:27)
[2020-01-07] MEDS: metoprolol succinate ER (24 HR) 100 mg Tablet PO (07:39)
[2020-01-07] MEDS: pantoprazole DR 40 mg Tablet PO (07:40)
[2020-01-07] MEDS: docusate sodium 100 mg Capsule PO (07:40)
[2020-01-07] MEDS: albuterol 8 gm MDI 1 PUFF INHALATION ×2 (08:18→11:30)
--- NOTE | 2020-01-07 09:16 | P.DS_ITS ---
Discharge Providers Date of Admission: 01/06/20 10:21 Date of Discharge: January 07, 2020 Attending Provider at Admission: Colin Ugarte DO Attending Provider at Discharge: Colin Ugarte DO Primary Care Provider: Marianne Mirza Diagnoses at Discharge Discharge Diagnosis (1) Intervertebral disc disorder with radiculopathy of lumbosacral region: Status: Chronic (2) Diabetes: Status: Acute (3) Depression: Status: Acute (4) Hypertension: Status: Acute Reason for Visit Reason for Visit: transforaminal lumbar interbody fusion L4 -5 [id number] Hospital Course Hospital Course Patient is postop day #1 from a L4-5 posterior lumbar interbody fusion. Complaining of more neck pain than back pain at this point. More than likely from positioning. The plan will be to discharge her today. And have her follow-up in the clinic in 2 weeks. . Physical Exam Narrative: EXAM NARRATIVE: Her strength in bilateral lower extremities is 5 out of 5. Sensation is intact. Incision is clean dry and intact Discharge Data Data Completed and Pending: Completed Studies During Hospitalization Category Date Time Status XR lumbar spine 2 -3V* 09491 Routine Exams 01/06/20 Completed Labs from last 24 hours 01/07/20 01/06/20 01/06/20 06:16 21:39 16:59 POC Glucose 259 331 181 01/06/20 11:19 POC Glucose 186 Vitals: Last Vital Signs Temp 97.8 F 01/07/20 07:29 Pulse 99 01/07/20 08:22 Resp 18 01/07/20 08:19 BP 113/75 01/07/20 07:29 Pulse Ox 92 01/07/20 08:19 Discharge Plan Discharge Patient Disposition: Home Condition: Stable Prescriptions: New hydrocodone-acetaminophen 5-325 mg tablet 1 - 2 tab PO .Q4-6H Qty: 40 RF: 0 Skelaxin 800 mg tablet 800 mg PO TID Qty: 30 RF: 0 Continued quetiapine 100 mg tablet 100 mg PO BEDTIME RF: 0 (DME) Wheelchair Qty: 1 RF: 0 sucralfate [Carafate] 1 gram tablet 1 gm PO Q6H PRN (Reason: stomach upset) Qty: 120 RF: 1 (DME) hospital bed See Rx Instructions .Route .MEDSUPPLY Qty: 1 RF: 0 amlodipine 10 mg tablet 10 mg PO DAILY RF: 0 albuterol sulfate [ProAir HFA] 90 mcg/actuation HFA aerosol inhaler 1 puff INHALATION QID PRN (Reason: Shortness Of Breath) RF: 0 pantoprazole [Protonix] 40 mg tablet,delayed release (DR/EC) 40 mg PO BIDWM 42 Days Qty: 42 RF: 3 atorvastatin 40 mg Tablet 40 mg PO QPM RF: 0 metformin 500 mg Tablet 500 mg PO BID RF: 0 metoprolol succinate 100 mg Tablet Extended Release 24 Hr 100 mg PO DAILY RF: 0 fluticasone propionate 50 mcg/actuation [place],Suspension 1 spray INTRANASAL DAILY RF: 0 Discharge Orders: Discharge Order (Routine); Ordered 01/07/20 Ordered By: Colin Ugarte Discharge Diet: Usual diet Discharge Activity: Limit activity as instructed Activity Restrictions/Additional Instructions: Thank you for choosing [facility] for your care! The following is a list of instructions, from your provider, to follow upon your discharge to ensure you have the optimal recovery from your recent injury or surgery. Follow-up care is a talamantes part of your treatment and safety. Be sure to make and go to all appointments, and call your doctor if you are having problems. If you do not already have a follow-up appointment made, call Dr. Ugarte office in the next 1-3 days to make follow up appointment for 2 weeks at [phone]. It is also a good idea to know your test results and keep a list of the medicines you take. Medications will be prescribed for you at your provider's discretion. These medications are to be used as instructed; if they are taken more often that prescribed they will not be refilled early and in most cases will not be refilled at all. > When a refill is needed,you should contact our office 2-3 business days before your prescription runs out. Medications will NOT be refilled by shirt ironer supervisor providers after hours! > Many pain medications contain Tylenol (Acetaminophen). Do not consume more than 4,000 mg of Tylenol per day in total with any combination ofmedications. > Pain medications can cause constipation. Please use an over the counter stool softener as directed, while taking pain medications. Consulty our local pharmacist with questions or recommendations on stool softeners. If constipation persists, contact our office or your primary care provider. > While under our care,you are not to receive pain medications or other controlled substances from any other provider unless our office is notified and approves. Any attempts to do so will result in refusal to prescribe any further pain medications and possible dismissal from our practice. ? Your wound and/or dressing should remain clean and dry for 2 days after surgery. On postoperative day 2 (48 hours after your surgery) the dressing (if present) should be removed and it is okay to shower and get the incision wet. Pad dry afterwards. No further dressing should be required from that point on. Do not put any creams or ointments on theincision > It is normal for there to be a small amount of discharge (bloody or blood tinged) present from a surgical wound for the first 1-3days. > The wound should be examined twice a day for signs of infection. Mild redness or bruising is to be expected but indications that an infection maybe starting would include; An increase in redness, swelling, or discharge, a foul odor present around the incision, and/or a fever greater than 101 ?F ? Showering is permitted, however we ask that you do not take a bath, sit in a whirlpool / Jacuzzi, or go swimming for 1 month. For only the first 2 days after surgery, lt wilt be necessary for you to cover your wound/dressing with plastic and tape to keep it dry. ? Walking is essential for the healing process after surgery. We would like you to slowly advance your walking. This should be done on relatively flat clear ground (inside or out) or can be done on a treadmill. Remember this goal does not have to happen all at once, slowly increase your distance and duration. This can be broken into more more than one walk per day as tolerated. Patients who walk as directed after surgery rarely require Physical Therapy. In the unlikely event this issue arises your provider will direct hospital staff to make the appropriate arrangements. ? No lifting over 5 pounds {a gallon of milk) or bending/twisting until further notice. Each of these activities places an unnecessary amount of stress onto the body and can impede the delicate healing process. > Instead of bending at the waist, keep your back straight and bend at the knees. > Instead of twisting your torso, keep your back straight and turn your entire body with your feet. ? You may sleep in any position which makes you comfortable. Many patients find comfort sleeping in a reclining chair. It is not abnormal to have difficulty sleeping for the first several weeks following your surgery. We recommend trying Benadry! or Tylenol PM as directed to help with your sleeping difficulties. Both medications are over the counter and available without prescription. ? NO SMOKING!!! Smoking dramatically increases the probability of developing postoperative wound infections. ? Common complaints after lumbar and/or thoracic spine surgery include, but are not limited to: numbness and/or tingling in the legs, pain around the incision and surrounding tissues, muscle spasms, or stiffness of the middle to low back. Contact our office if these symptoms persist or if an acute change occurs. ? No driving for the first 3-5days, and not while taking narcotics [] until seen at your follow-up appointment and cleared. There are no restrictions for riding on short trips, however if you take a longer trip, arrangements should be made to make regular stops to get out of the vehicle and stretch . ? Swelling is an unfortunate event that will take place with any surgery and is the primary source of your postoperative discomfort. While walking and regular approved activities helps control inflammation, there are additional steps you can take to minimizeswelling. > Place ice over the surgical site and surrounding tissue for twenty minutes, followed by applying a low/medium heat (heating pad) for an additional twenty minutes every 1-2 hours as needed for pain relief. > You may use of over the counter anti-inflammatory medications (Ibupr ofen, Motrin, Aleve, Advil, etc) as directed on the package label. These types of medicines wm significantly reduce the amount of discomfort you experience after surgery from swelling. It should be noted that if you have and allergy to any of these medications, or a history of ulcers or kidney disease you should consult you primary care provider prior to starting these medications. Discharge Attestations Time Spent in Discharge Care*: greater than 30 min Specific Discharge Activities: documenting/other paperwork Quality Metrics Clinical Quality Measures During this hospital stay, did patient experience: None Coding Level of Care Code Acute Lease Administrator for Adan Fwd Diagnoses Intervertebral disc disorder with radiculopathy of lumbosacral region M51.17 Diabetes E11.9 Depression F32.9 Hypertension I10
--- NOTE | 2020-01-07 09:31 | PC.CHAP ---
Pastoral Care Encounter/Spiritual Assessment Type of Contact [] Declined certified ophthalmic assistant visit [] Patient/Family/Request visit [] Outpatient visit [] Follow-up visit [] Physician referral [] Code/Alert [x] Routine visit [] Staff referral [] Actively dying [] Patient sleeping [] Family support [] [] Out of room [] Palliative care [] [] Receiving care in room [] Pre-surgical visit [] Trauma [] Long length of stay [] ICU visit [] Other: Relational/Emotional Strength [] Patient feels connected with others/family/visitors/staff [] Distress [] Loneliness/isolation [] Abandonment Spirituality of Patient [] Person of Mirlande [] Attends Sabianism of their Mirlande [] Believes in Prayer [] Reads Bible or Faith materials [] There are Spiritual issues to be addressed Pattern Drum Maker Interventions [x] Prayer [x] Active listening [x] Non-anxious presence [x] Spiritual/emotional support [] Crisis/trauma care [] Spiritual counseling [] Bereavement support [] Provided bereavement packet [] Provided Bible/devotional materials [] Provided toy/stuffed animal, coloring book to patient or family member [] Provided Communion [] Anointing/[place] [] Salvation [x] Completed spiritual assessment [] Other: Impact on Illness or Injury [] Angry [] Fearful [] Anxious [] Often cries [] Exhaustion [] Unable to work [] Unable to attend evangelical [] Unable to walk/stand [] Unable to read [] Unable to drive [] Unable to eat/drink [] Unable to sleep [] Unable to be with family [] Patient intubated [] Other: Summary patient states lots of pain in neck area... prayed for full recovery Time spent with patient 10 min
--- NOTE | 2020-01-07 10:32 | ANE.PACU2 ---
Inpatient post-anesthesia follow up: Airway intact: Yes Vital signs: Temperature 97.8 F Pulse Rate 99 Respiratory Rate 18 Blood Pressure 113/75 Pulse Oximetry 92 Oxygen Delivery Me thod Room Air Oxygen Flow Rate 2 Fraction of Inspir ed Oxygen Hydration adequate: Yes Nausea and vomiting: No Pain level: 3 Mental status: Baseline
[2020-01-07 10:47] LABS: Glucose Point of Care 211 mg/dL (70-110)
--- NOTE | 2020-01-08 17:28 | PC.RESP ---
Smoking Cessation information sent to patient.
== END 2020-01-07 13:23 | disposition home or self-care (01) | DRG 455 ==
LOC: MEDSURG 10:18 → OBGYN 13:53 → MEDSURG 13:56
PROVIDERS: Admitting Provider Orthopaedic Surgery; PCP Physician Assistant; Visit Provider Orthopaedic Surgery
PROC: 0SG00AJ Fusion of Lumbar Vertebral Joint with Interbody Fusion Device, Posterior Approach, Anterior Column, Open Approach (ICD-10-PCS; principal; 2020-01-06 07:00)
DX: M43.16 Spondylolisthesis, lumbar region (principal); M48.062 Spinal stenosis, lumbar region with neurogenic claudication; F17.210 Nicotine dependence, cigarettes, uncomplicated; I10 Essential (primary) hypertension; K21.9 Gastro-esophageal reflux disease without esophagitis; K44.9 Diaphragmatic hernia without obstruction or gangrene; F32.9 Major depressive disorder, single episode, unspecified; E11.9 Type 2 diabetes mellitus without complications; M53.2X6 Spinal instabilities, lumbar region; Z96.651 Presence of right artificial knee joint; M54.17 Radiculopathy, lumbosacral region; E78.5 Hyperlipidemia, unspecified
CPT/HCPCS: 12345; 36416; 72100; 76000; 82962; 94640; 96365; 96372; 96375; 97161; C1713; C9359; G0378; J0131; J0690; J1100; J1644; J1650; J1815; J1885; J2250; J2270; J2370; J2405; J2704; J2710; J2765; J3010; J3490; J3535; J7030

== ENCOUNTER 2020-01-12 15:42 | Inpatient (IN) | payer MEDICAID, SELFPAY ==
[2020-01-12] VITALS (7 sets, daily range): BP systolic 100–154; BP diastolic 60–77; PULSE 100–109; RESP 18–21; TEMP 36.6; O2SAT 92–94; BMI 35.4
--- NOTE | 2020-01-12 16:39 | ECG_ITS ---
[facility] Test Date: 2020-01-12 Pat Name: Dayanara Singleton Department: Room: Gender: Female Fountain Server: : 1960 Requested By: Zita Dowling Order Number: [id number] Colleen MD: Roland Nowak M.D. Measurements Intervals [place] Rate: 96 P: 62 KS: 169 QRS: 71 QRSD: 93 T: 71 QT: 366 QTc: 464 Interpretive Statements SINUS RHYTHM NONSPECIFIC T-WAVE ABNORMALITY Compared to ECG 08/05/2019 14:40:45 T-wave abnormality now present Electronically Signed On 01-12-2020 18:38:04 LETTUCE CUTTER by Roland Nowak M.D. [id number]
--- NOTE | 2020-01-12 16:39 | XRR_ITS ---
PROCEDURE INFORMATION: Exam: XR Chest, 1 View Exam date and time: 01/12/2020 4:41 PM Age: 59 years old Clinical indication: Chest pain; Prior surgery; Surgery date: Post-operative (0-2 days); Surgery type: Back TECHNIQUE: Imaging protocol: XR of the chest Views: 1 view. COMPARISON: CR XR chest 1V portable [id number] 08/05/2019 1:06 PM FINDINGS: Lungs: Unremarkable. No consolidation. Pleural space: Unremarkable. No pleural effusion. No pneumothorax. Heart/Mediastinum: Unremarkable. No cardiomegaly. Bones/joints: Unremarkable. XR/XR chest 1V portable [id number] IMPRESSION: No acute findings.
--- NOTE | 2020-01-12 16:39 | CTR_ITS ---
PROCEDURE INFORMATION: Exam: CT Angiography Chest With Contrast Exam date and time: 01/12/2020 5:57 PM Age: 59 years old Clinical indication: Abdominal pain; Generalized; Chest pain; Type not specified; Prior surgery; Surgery date: 3-7 days post-operative; Surgery type: Sacral, hernia; Patient HX: PT is 6 days post-op sacral surgery C/O cp SOB abd distention w n/v; Additional info: Chest and abd pain post lumbar fusion TECHNIQUE: Imaging protocol: Computed tomographic angiography of the chest with intravenous contrast. Sagittal and coronal reformatted images were created and reviewed. 3D rendering (Not supervised by radiologist): MIP and/or 3D reconstructed images were created by the technologist. Radiation optimization: All CT scans at this facility use at least one of these dose optimization techniques: automated exposure control; mA and/or kV adjustment per patient size (includes targeted exams where dose is matched to clinical indication); or iterative reconstruction. Contrast material: OMNI 350; Contrast volume: 150 ml; Contrast route: INTRAVENOUS (IV); COMPARISON: CR (CHEST, ) 01/12/2020 4:58 PM RADIATION DOSE METRICS: Total DLP (mGy-cm): 2218.11 FINDINGS: Pulmonary arteries: Evaluation of peripheral pulmonary arteries is limited secondary to the phase of contrast enhancement. No filling defects in the central pulmonary arteries to suggest a large pulmonary embolism. Aorta: Moderate atherosclerotic changes in the visualized arteries. No evidence for aortic aneurysm or aortic dissection. Lungs: Tracheobronchial structures are patent. Compressive atelectasis in the in the right lung posteriorly. Mild centrilobular emphysematous changes in the lungs. No pulmonary parenchymal nodules or masses. Pleural space: Small right pleural effusion. Heart: The heart is at the upper limits of normal in size. Moderate atherosclerotic calcification in the coronary arteries. Mediastinal space: Wall thickening of the esophagus, measuring up to 4.8 mm (series 8, image 150). Inflammatory changes are also seen around the esophagus. Fluid in the mid esophagus. No mediastinal hematoma. No pneumomediastinum. Lymph nodes: No lymphadenopathy. Bones/joints: Multilevel degenerative changes of varying severity in the visualized spine. Soft tissues: No acute abnormality in the extrathoracic soft tissues. IMPRESSION: 1. Evaluation of peripheral pulmonary arteries is limited secondary to the phase of contrast enhancement. No filling defects in the central pulmonary arteries to suggest a large pulmonary embolism. 2. Small right pleural effusion. Compressive atelectasis in the in the right lung posteriorly. 3. Findings raising suspicion for esophagitis. There is also fluid in the mid esophagus, which could be due to retained esophageal contents from poor esophageal motility versus gastroesophageal reflux. Recommend clinical correlation. Upper GI examination or upper endoscopy may be obtained for further evaluation as clinically indicated. 4. Incidental/nonacute findings are listed in the report. PROCEDURE INFORMATION: Exam: CT Abdomen And Pelvis With Contrast Exam date and time: 01/12/2020 5:57 PM Age: 59 years old Clinical indication: Abdominal pain; Generalized; Chest pain; Type not specified; Prior surgery; Surgery date: 3-7 days post-operative; Surgery type: Sacral, hernia; Patient HX: PT is 6 days post-op sacral surgery C/O cp SOB abd distention w n/v; Additional info: Chest and abd pain post lumbar fusion TECHNIQUE: Imaging protocol: Computed tomography of the abdomen and pelvis with intravenous contrast. Sagittal and coronal reformatted images were created and reviewed. Radiation optimization: All CT scans at this facility use at least one of these dose optimization techniques: automated exposure control; mA and/or kV adjustment per patient size (includes targeted exams where dose is matched to clinical indication); or iterative reconstruction. Contrast material: OMNI 350; Contrast volume: 150 ml; Contrast route: INTRAVENOUS (IV); COMPARISON: CT abdomen pelvis w con* [id number] 08/05/2019 2:44:22 PM RADIATION DOSE METRICS: Total DLP (mGy-cm): 2218.11 FINDINGS: Liver: Two cysts in the left lobe of the liver and in the caudate lobe of the liver are stable. Gallbladder and bile ducts: The gallbladder is unremarkable. No biliary ductal dilatation. Pancreas: The pancreas is unremarkable. No pancreatic ductal dilatation. Spleen: The spleen is unremarkable. Adrenal glands: The right and left adrenal glands are unremarkable. Kidneys and ureters: Stable simple cyst in the right kidney measuring 4.7 cm (series 3, image 26). The left kidney is unremarkable. The right and left ureters are unremarkable. Stomach and bowel: There are hyperdense foci in the 2nd portion of the duodenum. These may represent swallowed medications. Marked distention of the duodenum and the small bowel to the distal ileum. The small bowel measures 4.6 cm in diameter (series 3, image 67). No bowel wall thickening. No pneumatosis. There is a gradual transition point in the distal ileum. No acute abnormality in the stomach. No acute abnormality in the colon. Appendix: The appendix is visualized and is unremarkable. No findings to suggest acute appendicitis. Intraperitoneal space: No free intraperitoneal air. No ascites. No loculated fluid collections to suggest an abscess. Vasculature: Moderate atherosclerotic changes in the visualized arteries. No evidence for aortic aneurysm or aortic dissection. Hepatic veins, portal veins, splenic vein, and SMV are patent. Lymph nodes: No lymphadenopathy. Urinary bladder: The bladder is incompletely filled, which can limit evaluation. No focal abnormality in the bladder however. Reproductive: The uterus, right ovary, and left ovary are unremarkable. Bones/joints: Patient has had an interval posterior fusion at L4-L5 with an L4 laminectomy. Mild spinal canal stenosis at L3-L4 and L5-S1. Soft tissues: Fluid in the subcutaneous tissues posteriorly in the midline and over the left flank, findings may be postsurgical in nature. CT/CT angio chest w abd pel w con IMPRESSION: 1. Findings suggesting a small bowel obstruction versus small bowel adynamic ileus. 2. Patient has had an interval posterior fusion at L4-L5 with an L4 laminectomy. 3. Fluid in the subcutaneous tissues posteriorly in the midline and over the left flank, findings may be postsurgical in nature. 4. Incidental/nonacute findings are listed in the report. Radiation Dose CTDIVOL = (mGy): DLP = 2218.11~2218.11 (mGy-cm)
--- NOTE | 2020-01-12 16:42 | W.ED.BACK ---
HPI - Back Pain/Injury General: Chief Complaint: Back Pain/Injury Stated Complaint: ABD/BACK PAIN S/P SURGERY Time Seen by Provider: 01/12/20 15:52 History of Present Illness: HPI Narrative: This patient is a 59-year-old female who presents today with abdominal pain and vomiting. She had back surgery on the sixth teeth to have a lumbar fusion. A few days after the surgery she was still having a lot of pain and developed bloating and vomiting. She also has chest pain and some difficulty breathing. She has been having a lot of reflux symptoms. The emesis has been bright green and her did show via picture on his phone of the bright green emesis. Her said that she gets an ileus commonly when she has surgery. She has had 2 umbilical or ventral hernias and 1 inguinal hernia repaired. No other abdominal surgeries but she has had multiple other orthopedic surgeries. She is a diabetic. She has been taking hydrocodone but she said it does not seem to help the pain -it only seems to make her sick. MD elicited complaint: back pain Pertinent past history: back surgery Associated symptoms: Reports abdominal pain, nausea and vomiting; Deny chills, fatigue or fever(s) Review of Systems General: Reports: 10 or more systems reviewed and unremarkable except in HPI and below Const: Reports: malaise; Denies: fever(s), chills or fatigue Eyes: Denies: change in vision ENMT: Denies: odynophagia Card: Reports: chest pain and lightheadedness; Denies: swelling of feet/ankles Resp: Reports: dyspnea; Denies: productive cough or non-productive cough GI: Reports: abdominal pain, nausea, vomiting, constipation and bloating : Denies: flank pain or difficulty voiding Musc: Denies: neck pain or back pain Skin/Breast: Denies: rash Neuro: Denies: headache(s), numbness in extremities or weakness in extremities Clyde/Lymph: Denies: easy bruising or easy bleeding PFSH ED PFSH: Medical History Anxiety Depression Diabetes Esophagitis History of colon polyps Hypertension Intervertebral disc disorder with radiculopathy of lumbosacral region Joint instability Lumbar stenosis with neurogenic claudication Pain due to internal orthopedic prosthetic devices, implants and grafts, initial encounter This was addressed with the revision total knee arthroplasty involving exchange of the tibial insert with synovectomy. Spondylisthesis Spondylolisthesis at L4-L5 level Surgical History H/O spinal fusion 01/05,, L4 laminectomy H/O tubal ligation History of total knee arthroplasty Right History of total right knee replacement Hx of colonoscopy with polypectomy (08/15/19) diverticulosis and polyps Hx of inguinal hernia repair Hx of umbilical hernia repair Family History Mother Cancer Lung Father CAD (coronary artery disease) Stroke FH: brain aneurysm Brother Cancer Denies family history of Anesthesia complication Bleeding disorder Social History Smoking and tobacco status: current every day smoker cigarettes Packs smoked per day: 1 Alcohol intake: current Lives independently: No Household members: none Housing: House Marital status: Legally service: No Current occupational status: disabled History of recent travel: No Physical Exam Const: EXAM LIMITATIONS: other limitations (Fatigued, a little confused about details) GENERAL APPEARANCE: in distress and lethargic (Slightly) NUTRITIONAL APPEARANCE: obese ORIENTATION/CONSCIOUSNESS: Yes lethargic (Slightly) HENMT: HEAD & SCALP: normal to inspection FACE & SINUS: normal facial exam Eye: GENERAL EYE: appearance normal, both eyes and all related structures Neck/C-Spine: COMMON NORMALS: supple, no meningeal signs and no JVD Chest: COMMONS NORMALS: normal inspection of the chest Resp: COMMON NORMALS: normal respiratory effort, No use of accessory muscles and clear to auscultation bilaterally AUSCULTATION: clear to auscultation bilaterally and rhonchi (A few scattered mild) Cardio: COMMON NORMALS: no JVD, regular rate, regular rhythm and No murmurs present (Cardio) RATE: regular rate RHYTHM: regular rhythm GI: INSPECTION: Yes abdominal distension AUSCULTATION: Yes Hypoactive bowel sounds present PALPATION: Yes Firmness to palpation present (GI) and Yes Tenderness to palpation present (GI) PERCUSSION: tympanic to percussion Back/Pelvis: COMMON NORMALS: thoracic and lumbar spine normal to inspection BACK IMAGE (FEMALE): 1. Surgical dressing 2. Swelling and ecchymosis Extremity: COMMON NORMALS: normal to inspection Neuro: COMMON NORMALS: moves all extremities, no focal motor deficits and no sensory deficits noted SENSORIUM/ORIENTATION: Yes lethargic (Slightly) MENINGEAL SIGNS: Yes no meningeal signs Psych: COMMON NORMALS: mental status grossly normal, cooperative and normal affect Skin: COMMON NORMALS: no rashes or lesions noted and turgor normal GENERAL SKIN EXAM: no rashes or lesions noted and turgor normal Course ED course: Labs show significant hyponatremia, hypokalemia. She is also hypocalcemic but this is probably related to low albumin in part. CT shows a ileus with markedly dilated bowel throughout. IV fluids have been ordered to replace the electrolyte abnormalities. She is also dehydrated and will be getting other fluids as well. She will be admitted to Dr. Hwang. She initially refused an NG tube but then agreed to have one placed. Vital Signs: Vital signs: Vital Signs Temperature 97.8 F 01/12/20 15:48 Pulse Rate 109 H 01/12/20 21:00 Respiratory Rate 20 H 01/12/20 21:00 Blood Pressure 103/60 01/12/20 21:00 Pulse Oximetry 92 01/12/20 21:00 MDM - Back Pain/Injury Lab Data: Labs: Lab Results 01/12/20 01/12/20 01/12/20 Range/Units 16:55 16:55 16:55 WBC 5.7 (4.0-10.0) 10^3/ uL RBC 4.10 (4.1-5.3) 10^6/u L Hgb 12.5 (11.5-15.3) g/dL Hct 36.3 L (37.0-47.0) % MCV 88.5 (81-99) fL MCH 30.5 (28.0-34.0) pg MCHC 34.4 (30.0-36.0) g/dL RDW 12.7 (12.1-15.1) % Plt Count 496 H (130-400) 10^3/c mm MPV 9.6 (7.4-10.4) fL Neut % (Auto) 53.5 % Lymph % (Auto) 21.8 % [place] % (Auto) 21.4 % Eos % (Auto) 1.7 % Baso % (Auto) 0.7 % Neut # (Auto) 3.07 (1.8-7.7) 10^3/u L Lymph # (Auto) 1.3 (0.8-4.8) 10^3/u L [place] # (Auto) 1.2 H (0.2-0.9) 10^3/u L Eos # (Auto) 0.1 (0.0-0.8) 10^3/u L Baso # (Auto) 0.0 (0.0-0.1) 10^3/u L Nucleated RBC % (a uto) 0 % Nucleated RBCs # 0.0 /100WBC Sodium Cancelled Potassium Cancelled Chloride Cancelled Carbon Dioxide Cancelled Anion Gap Cancelled BUN Cancelled Creatinine Cancelled GFR Calculation Cancelled Glucose Cancelled Calculated Osmolal ity Cancelled Lactic Acid Cancelled Calcium Cancelled Magnesium (1.7-2.3) mg/dL Total Bilirubin Cancelled AST Cancelled ALT Cancelled Alkaline Phosphata se Cancelled Total Protein Cancelled Albumin Cancelled Globulin Cancelled Lipase Cancelled Urine Color (Yellow) Urine Appearance (CLEAR) Urine pH (5-7) Ur Specific Gravit y (1.005-1.030) Urine Protein (Negative) Urine Glucose (UA) (Normal) Urine Ketones (Negative) Urine Blood (Negative) Urine Nitrate (Negative) Urine Bilirubin (Negative) Urine Urobilinogen (Negative) mg/dL Ur Leukocyte Danya ase (Negative) Urine RBC (0-2) /hpf Urine WBC (0-5) /hpf Ur Squamous Epith Cells (0-5) /hpf Amorphous Sediment Urine Bacteria (NONE) /hpf Urine Mucus /hpf 01/12/20 01/12/20 01/12/20 Range/Units 17:34 18:46 18:46 WBC (4.0-10.0) 10^3/ uL RBC (4.1-5.3) 10^6/u L Hgb (11.5-15.3) g/dL Hct (37.0-47.0) % MCV (81-99) fL MCH (28.0-34.0) pg MCHC (30.0-36.0) g/dL RDW (12.1-15.1) % Plt Count (130-400) 10^3/c mm MPV (7.4-10.4) fL Neut % (Auto) % Lymph % (Auto) % [place] % (Auto) % Eos % (Auto) % Baso % (Auto) % Neut # (Auto) (1.8-7.7) 10^3/u L Lymph # (Auto) (0.8-4.8) 10^3/u L [place] # (Auto) (0.2-0.9) 10^3/u L Eos # (Auto) (0.0-0.8) 10^3/u L Baso # (Auto) (0.0-0.1) 10^3/u L Nucleated RBC % (a uto) % Nucleated RBCs # /100WBC Sodium Cancelled 122 L Potassium Cancelled 3.0 L Chloride Cancelled 81 L Carbon Dioxide Cancelled 30 H Anion Gap Cancelled 14.0 BUN Cancelled 21 H Creatinine Cancelled 0.4 L GFR Calculation Cancelled 164.5 H Glucose Cancelled 103 Calculated Osmolal ity Cancelled 257 L Lactic Acid 0.9 Calcium Cancelled 7.9 L Magnesium (1.7-2.3) mg/dL Total Bilirubin Cancelled 0.6 AST Cancelled 11 ALT Cancelled 10 Alkaline Phosphata se Cancelled 55 Total Protein Cancelled 5.6 L Albumin Cancelled 3.3 L Globulin Cancelled 2.3 Lipase Cancelled 16 Urine Color (Yellow) Urine Appearance (CLEAR) Urine pH (5-7) Ur Specific Gravit y (1.005-1.030) Urine Protein (Negative) Urine Glucose (UA) (Normal) Urine Ketones (Negative) Urine Blood (Negative) Urine Nitrate (Negative) Urine Bilirubin (Negative) Urine Urobilinogen (Negative) mg/dL Ur Leukocyte Danya ase (Negative) Urine RBC (0-2) /hpf Urine WBC (0-5) /hpf Ur Squamous Epith Cells (0-5) /hpf Amorphous Sediment Urine Bacteria (NONE) /hpf Urine Mucus /hpf 01/12/20 01/12/20 Range/Units 18:46 19:20 WBC (4.0-10.0) 10^3/ uL RBC (4.1-5.3) 10^6/u L Hgb (11.5-15.3) g/dL Hct (37.0-47.0) % MCV (81-99) fL MCH (28.0-34.0) pg MCHC (30.0-36.0) g/dL RDW (12.1-15.1) % Plt Count (130-400) 10^3/c mm MPV (7.4-10.4) fL Neut % (Auto) % Lymph % (Auto) % [place] % (Auto) % Eos % (Auto) % Baso % (Auto) % Neut # (Auto) (1.8-7.7) 10^3/u L Lymph # (Auto) (0.8-4.8) 10^3/u L [place] # (Auto) (0.2-0.9) 10^3/u L Eos # (Auto) (0.0-0.8) 10^3/u L Baso # (Auto) (0.0-0.1) 10^3/u L Nucleated RBC % (a uto) % Nucleated RBCs # /100WBC Sodium Potassium Chloride Carbon Dioxide Anion Gap BUN Creatinine GFR Calculation Glucose Calculated Osmolal ity Lactic Acid Calcium Magnesium 1.6 L (1.7-2.3) mg/dL Total Bilirubin AST ALT Alkaline Phosphata se Total Protein Albumin Globulin Lipase Urine Color Yellow (Yellow) Urine Appearance Clear (CLEAR) Urine pH 6.5 (5-7) Ur Specific Gravit y 1.005 (1.005-1.030) Urine Protein 1+ H (Negative) Urine Glucose (UA) Norm (Normal) Urine Ketones 2+ H (Negative) Urine Blood 2+ H (Negative) Urine Nitrate Negative (Negative) Urine Bilirubin 1+ H (Negative) Urine Urobilinogen 1 H (Negative) mg/dL Ur Leukocyte Danya ase Negative (Negative) Urine RBC None (0-2) /hpf Urine WBC 0-4 H (0-5) /hpf Ur Squamous Epith Cells 0-4 H (0-5) /hpf Amorphous Sediment Not Reportable Urine Bacteria 1+ H (NONE) /hpf Urine Mucus Trace /hpf Discharge Plan Discharge Admit Provider: Lupe Hwang Coding Level of Care Code ED Surveillance Operator for g Fwd Exam Comprehensive
[2020-01-12 17:28] LABS: Basophils % 0.7 %; Eosinophils # 0.1 10^3/uL (0.0-0.8); Eosinophils % 1.7 %; Hematocrit 36.3 % (37.0-47.0); Hemoglobin 12.5 g/dL (11.5-15.3); Lymphocytes # 1.3 10^3/uL (0.8-4.8); Lymphocytes % 21.8 %; Mean Corpuscular HGB Conc 34.4 g/dL (30.0-36.0); Mean Corpuscular Hemoglobin 30.5 pg (28.0-34.0); Mean Corpuscular Volume 88.5 fL (81-99); Mean Platelet Volume 9.6 fL (7.4-10.4); Monocytes # 1.2 10^3/uL (0.2-0.9); Monocytes % 21.4 %; Neutrophils # 3.07 10^3/uL (1.8-7.7); Neutrophils % 53.5 %; Nucleated Red Blood Cells % 0 %; Platelet Count 496 10^3/cmm (130-400); Red Cell Distribution Width 12.7 % (12.1-15.1); White Blood Count 5.7 10^3/uL (4.0-10.0)
[2020-01-12] MEDS: ondansetron 2 mg/ML SDV 2 mL 4 MG IVP (17:40)
[2020-01-12] MEDS: HYDROmorphone 1 mg/mL INJ 1 mL 0.5 MG IVP (17:41)
[2020-01-12] MEDS: iohexol 350 mg/mL 100 mL Btl IV (18:22)
[2020-01-12 19:21] LABS: Alanine Aminotransferase 10 U/L (0-33); Albumin Level 3.3 g/dL (3.5-5.2); Alkaline Phosphatase 55 IU/L (35-105); Aspartate Amino Transferase 11 U/L (0-32); Blood Urea Nitrogen 21 mg/dL (6-20); Calcium 7.9 mg/dL (8.5-10.5); Carbon Dioxide 30 mmol/L (22-29); Chloride 81 mmol/L (98-107); Globulin 2.3 g/dL (1.3-4.6); Glomerular Filtration Rate 164.5 mL/min (90-130); Glucose 103 mg/dL (65-115); Lipase 16 U/L (13-60); Osmolality Calculated 257 mOsm/kg (285-295); Sodium 122 mmol/L (136-145); Total Bilirubin 0.6 mg/dL (0.15-1.2); Total Protein 5.6 g/dL (6.6-8.7)
--- NOTE | 2020-01-12 19:50 | PM.HP ---
Providers/Chief Complaint Primary Care Provider: Marianne Mirza Chief Complaint: ABD/BACK PAIN S/P SURGERY History of Present Illness Dayanara Singleton is a 59 year old female who was recently discharged on 01/06 after spinal fusion L4-L5, coming in today with chief complaint of intractable nausea vomiting. Patient is stating that since her discharge from the hospital she never had any bowel movement, she is able to pass flatus, she has had multiple episodes of bilious emesis, she is not able to keep anything down, she is feeling dehydrated, she is experiencing diffuse abdominal pain, she is also endorsing abdominal bloating. She has not noticed any fever, dysuria, chest pain. is stating that few days after discharge she experienced wheezing which got better with albuterol, she has not smoked since her discharge from the hospital. But right now patient is not complaining of active shortness of breath, sputum production or fevers. She came to the hospital for worsening of her symptoms. Patient is also endorsing that purpura has increased in size and dimensions since her surgical day, she has not changed her wound dressing yet. Diagnosis in the ER revealed hypotension, tachycardia, afebrile, was saturating well on room air, severe electrolyte abnormality, CT abdomen pelvis showed adynamic ileus without mechanical obstruction, patient was reluctant to allow nasogastric tube, agreed to getting Dilaudid and Ativan before NG tube placement. Her wound shows good healing signs with good granulation tissue no active discharge, petechial rash extending from lower back up to her left mid gluteal region. No active bleeding. Review of Systems Const: Reports: chills, body aches and change in appetite; Denies: fever(s) Eyes: Denies: change in vision ENMT: Denies: throat pain Card: Denies: chest pain Resp: Denies: dyspnea GI: Reports: abdominal pain, nausea, vomiting, early satiety and bloating; Denies: diarrhea : Denies: flank pain Musc: Reports: back pain; Denies: neck pain Skin/Breast: Reports: new lesions and lesions Neuro: Denies: headache(s) Endo: Denies: polyuria Clyde/Lymph: Denies: easy bruising All/Imm: Denies: urticaria Medications/Allergies Home Medications Medication Instructions Recorded Confirmed Last Taken Type amlodipine 10 mg PO DAILY 02/21/19 01/12/20 01/12/20 History albuterol sulfate [ProAir HFA] 1 puff INHALATION QID PRN 02/26/19 01/12/20 Unknown History Wheelchair #1 ea 02/28/19 01/12/20 Unknown Rx quetiapine 100 mg tablet 100 mg PO BEDTIME 05/31/19 01/12/20 01/05/20 History pantoprazole [Protonix] 40 mg PO BIDWM 42 Days #42 tab 08/15/19 01/12/20 01/05/20 Rx sucralfate 1 gram tablet 1 gm PO Q6H PRN #120 tab 10/07/19 01/12/20 Unknown Rx atorvastatin 40 mg PO QPM 12/16/19 01/12/20 01/05/20 History fluticasone propionate 1 spray INTRANASAL DAILY 12/16/19 01/12/20 Unknown History metformin 500 mg PO BID 12/16/19 01/12/20 01/12/20 History metoprolol succinate 100 mg PO DAILY 12/16/19 01/12/20 01/06/20 History hospital bed #1 ea NS 12/17/19 01/12/20 Unknown Rx cyclobenzaprine 10 mg tablet 10 mg PO TID #90 tab 01/07/20 01/12/20 Unknown Rx hydrocodone-acetaminophen 1 - 2 tab PO .Q4-6H #40 tab 01/07/20 01/12/20 01/12/20 Rx ibuprofen 400 mg PO PRN 01/12/20 01/12/20 Unknown History Allergies Allergy/AdvReac Type Severity Reaction Status Date / Time meloxicam Allergy ADR-Abdominal Verified 01/12/20 17:20 Pain PFSH Acute PFSH: Medical History Anxiety Depression Diabetes Esophagitis History of colon polyps Hypertension Intervertebral disc disorder with radiculopathy of lumbosacral region Joint instability Lumbar stenosis with neurogenic claudication Pain due to internal orthopedic prosthetic devices, implants and grafts, initial encounter This was addressed with the revision total knee arthroplasty involving exchange of the tibial insert with synovectomy. Spondylisthesis Spondylolisthesis at L4-L5 level Surgical History H/O spinal fusion 01/05,, L4 laminectomy H/O tubal ligation History of total knee arthroplasty Right History of total right knee replacement Hx of colonoscopy with polypectomy (08/15/19) diverticulosis and polyps Hx of inguinal hernia repair Hx of umbilical hernia repair Family History Mother Cancer Lung Father CAD (coronary artery disease) Stroke FH: brain aneurysm Brother Cancer Denies family history of Anesthesia complication Bleeding disorder Social History Smoking and tobacco status: current every day smoker cigarettes Packs smoked per day: 1 Alcohol intake: current Lives independently: No Household members: none Housing: House Marital status: Legally service: No Current occupational status: disabled History of recent travel: No Vitals/I&O/Wt Last Vital Signs Temp 97.8 F 01/12/20 15:48 Pulse 106 H 01/12/20 19:26 Resp 18 01/12/20 19:26 BP 100/64 01/12/20 19:26 Pulse Ox 92 01/12/20 19:26 Weight last 48 hrs Weight 90.718 kg Physical Exam Narrative: EXAM NARRATIVE: Middle-age female currently in distress because of abdominal bloating Normal hemodynamics, Appears stated age Clinically dehydrated EOMI, PERRLA Appears anxious Surgical wound has good granulation tissue no active discharge however pruritic rash noticed which is extending from her lower back area up to left mid gluteal region No active discharge or bleeding Abdomen distended, bowel sounds very sluggish to absent, tenderness on deep palpation, no active signs of peritonitis Lower extremity no edema gangrene or ulcer S1, S2 sinus tachycardia No active respiratory distress bilateral adequate breath sounds no active wheezing Clinically looks dehydrated Data : 01/12/20 16:55 01/12/20 18:46 A&P Assessment and plan (1) Ileus: Status: Acute (2) Electrolyte abnormality: Status: Acute (3) Hyponatremia: Status: Acute (4) Hypokalemia: Status: Acute (5) Hypocalcemia: Status: Acute Additional A&P Information Ileus secondary to electrolyte abnormality No signs of obstruction, she has had abdominal hernia repair surgeries in the past Replenish electrolytes, Constipation positive, obstipation negative We will place NG tube after Dilaudid and Ativan as she is very anxious N.p.o. Zofran antiemetic along with Dilaudid opiate regimen No acute surgical indication for surgery Previous abdominal imaging showed biliary sludge, gallbladder wall thickening without cholecystitis Hyponatremia, hypokalemia and hypocalcemia I do not have electrolytes from the day of surgery however previously her sodium has been normal range, most likely this is secondary to poor p.o. intake, intractable vomiting, patient does not take any diuretics Monitor for refeeding syndrome as she has not eaten well in last 1 week, check phosphorus and magnesium level in the morning Replenish electrolyte L4-L5 spinal fusion Postop day 6, no fever, surgical wound shows good granulation tissue, purpuric rash noticed, hemoglobin stayed Nicotine dependence: Counseled on smoking cessation, DuoNeb for as needed use N.p.o., borderline diabetic I will keep her on D5 normal saline along potassium supplementation, Slow correction of sodium target 6 mEq in 24 hours DVT prophylaxis SCDs, avoid anticoagulation in case she would require surgical intervention Full code Attestations Medical Necessity Statement*: Anticipating stay in the hospital cross more than 2 midnights for ileus and severe electrolyte abnormality, monitor for refeeding syndrome, Time Spent in Patient Care: (>than 50% of time spent in counselling and/or direct pt care on unit). 50mins Coding Level of Care Code Acute Curtain Worker for Bhaveshg Fwd Diagnoses Ileus K56.7 Electrolyte abnormality E87.8 Hyponatremia E87.1 Hypokalemia E87.6 Hypocalcemia E83.51
[2020-01-12 19:58] LABS: Glucose Urine UA Norm (Normal); Protein Urine 1+ (Negative); Specific Gravity, Urine 1.005 (1.005-1.030); Urine Appearance Clear (CLEAR); Urine Color Yellow (Yellow); pH Urine 6.5 (5-7)
[2020-01-12 19:59] LABS: Add Urine Culture? No; Add Urine Microscopic? YES; Bacteria Urine 1+ /hpf; Bilirubin Urine 1+ (Negative); Blood Urine 2+ (Negative); Ketones Urine 2+ (Negative); Leukocyte Esterase Urine Negative (Negative); Mucus Urine TRACE /hpf; Nitrate Urine Negative (Negative); Squamous Epithelial Cell Urine 0-4 /hpf (0-5); Urobilinogen Urine 1 mg/dL (Negative); WBC Urine 0-4 /hpf (0-5)
[2020-01-12 20:02] LABS: Magnesium 1.6 mg/dL (1.7-2.3)
[2020-01-12] MEDS: sodium chlor 0.9% + KCl 40 mEq 40 MEQ/1,000 ML BAG 150 MEQ IV (20:15)
[2020-01-12 20:19] LABS: Lactic Sepsis W/Reflex 0.9 mmol/L (0.5-2.2)
[2020-01-12] MEDS: famotidine 20 mg/2 mL INJ 40 MG IVP (20:21)
[2020-01-12] MEDS: HYDROmorphone 1 mg/mL INJ 1 mL IVP (21:19)
[2020-01-12] MEDS: magnesium sulfate premix 2 GM/50 ML PIGGYBACK IV (22:56)
[2020-01-12] MEDS: LORazepam 2 mg/mL INJ 1 mL 0.5 MG IVP (23:08)
[2020-01-12] MEDS: dextrose 5%-ns + KCl 20 20 MEQ/1,000 ML BAG 100 MEQ IV (23:50)
[2020-01-13] VITALS (14 sets, daily range): BP systolic 115–137; BP diastolic 67–80; PULSE 100–122; RESP 16–19; TEMP 36.4–36.9; O2SAT 88–99
[2020-01-13] MEDS: HYDROmorphone 1 mg/mL INJ 1 mL 2 MG IVP ×5 (02:04→23:59)
[2020-01-13 05:07] LABS: Basophils # 0.1 10^3/uL (0.0-0.1); Eosinophils # 0.2 10^3/uL (0.0-0.8); Hemoglobin 11.8 g/dL (11.5-15.3); Lymphocytes # 1.5 10^3/uL (0.8-4.8); Lymphocytes % 25.1 %; Mean Corpuscular HGB Conc 33.7 g/dL (30.0-36.0); Mean Corpuscular Hemoglobin 30.3 pg (28.0-34.0); Mean Corpuscular Volume 89.7 fL (81-99); Mean Platelet Volume 9.3 fL (7.4-10.4); Monocytes % 16.4 %; Neutrophils # 3.18 10^3/uL (1.8-7.7); Neutrophils % 53.2 %; Nucleated Red Blood Cells % 0 %; Platelet Count 502 10^3/cmm (130-400); Red Cell Distribution Width 12.7 % (12.1-15.1)
[2020-01-13 05:33] LABS: Alanine Aminotransferase 9 U/L (0-33); Albumin Level 3.5 g/dL (3.5-5.2); Alkaline Phosphatase 59 IU/L (35-105); Anion Gap 14.5 (5-19); Aspartate Amino Transferase 15 U/L (0-32); Blood Urea Nitrogen 17 mg/dL (6-20); Calcium 7.7 mg/dL (8.5-10.5); Carbon Dioxide 24 mmol/L (22-29); Chloride 90 mmol/L (98-107); Globulin 2.1 g/dL (1.3-4.6); Glomerular Filtration Rate 164.5 mL/min (90-130); Glucose 149 mg/dL (65-115); Magnesium 2.1 mg/dL (1.7-2.3); Osmolality Calculated 264 mOsm/kg (285-295); Phosphorus 2.6 mg/dL (2.5-4.5); Potassium 3.5 mmol/L (3.5-5.1); Sodium 125 mmol/L (136-145); Total Bilirubin 0.5 mg/dL (0.15-1.2); Total Protein 5.6 g/dL (6.6-8.7)
[2020-01-13] MEDS: ondansetron 2 mg/ML SDV 2 mL 4 MG IVP (07:39)
[2020-01-13] MEDS: pantoprazole 40 mg SDV IVP (08:08)
--- NOTE | 2020-01-13 09:00 | XR_ITS ---
WS: [id number] XR KUB portable [id number] REASON FOR EXAM: ileus FINDINGS: No free air or retroperitoneal air. Gas distended loops of bowel in the central abdomen. These appears to be predominantly small bowel. Pedicle screw fixation L4-L5 with interbody fusion device. XR/XR KUB portable [id number] IMPRESSION: Nonspecific bowel gas pattern as above.
[2020-01-13] MEDS: dextrose 5%-ns + KCl 20 20 MEQ/1,000 ML BAG 100 MEQ IV ×2 (09:05→23:22)
--- NOTE | 2020-01-13 09:31 | PC.CHAP ---
Pastoral Care Encounter/Spiritual Assessment Type of Contact [] Declined spa concierge visit [] Patient/Family/Request visit [] Outpatient visit [] Follow-up visit [] Physician referral [] Code/Alert [x] Routine visit [] Staff referral [] Actively dying [] Patient sleeping [] Family support [] [] Out of room [] Palliative care [] [] Receiving care in room [] Pre-surgical visit [] Trauma [] Long length of stay [] ICU visit [] Other: Relational/Emotional Strength [] Patient feels connected with others/family/visitors/staff [] Distress [] Loneliness/isolation [] Abandonment Spirituality of Patient [] Person of Mirlande [] Attends Rastafari of their Mirlande [] Believes in Prayer [] Reads Bible or Gnosticist materials [] There are Spiritual issues to be addressed Callisthenics Instructor Interventions [x] Prayer [x] Active listening [x] Non-anxious presence [x] Spiritual/emotional support [] Crisis/trauma care [] Spiritual counseling [] Bereavement support [] Provided bereavement packet [] Provided Bible/devotional materials [] Provided toy/stuffed animal, coloring book to patient or family member [] Provided Communion [] Anointing/[place] [] Salvation [x] Completed spiritual assessment [] Other: Impact on Illness or Injury [] Angry [] Fearful [] Anxious [] Often cries [] Exhaustion [] Unable to work [] Unable to attend jewish [] Unable to walk/stand [] Unable to read [] Unable to drive [] Unable to eat/drink [] Unable to sleep [] Unable to be with family [] Patient intubated [] Other: Summary patient feeling somewhat better.. slept better, tummy pressure better Time spent with patient 15 min
--- NOTE | 2020-01-13 13:31 | PM.PN ---
Subjective Subjective: Interval history: KUB noted, will give enema x 1. Resting quietly in bed, reports feeling much better and has been passing a lot of gas. She reports being quite hungry. NG tube accidentally removed overnight. Medications: Reviewed: Yes Medication Review Details: Active Medications Generic Name Dose Route Start Last Admin Trade Name Freq PRN Reason Stop Dose Admin Albuterol/Ipratrop ium 3 ml 01/12/20 22:42 Ipratropium-Albu terol 3 Ml Neb INHALATION Q4H PRN SHORTNESS OF KANG TH Hydromorphone HCl 2 mg 01/12/20 22:42 01/13/20 11:11 Hydromorphone 1 Mg/Ml Inj 1 Ml IVP 2 mg Q4H PRN Administration abd pain or back pain Potassium Chloride /Sodium Chloride 40 meq in 1,000 m ls @ 150 mls/hr 01/12/20 19:30 01/12/20 20:15 Sodium Chlor 0.9 % + Kcl 40 Meq IV 150 mls/hr .[id number] DANILO Administration Potassium Chloride /Dextrose/Sod Cl 20 meq in 1,000 m ls @ 100 mls/hr 01/12/20 22:42 01/13/20 09:05 Dextrose 5%-Ns + Kcl 20 IV 100 mls/hr .Q10H DANILO Administration Lorazepam 0.5 mg 01/12/20 22:42 01/12/20 23:08 Lorazepam 2 Mg/M l Inj 1 Ml IVP 0.5 mg Q8H PRN Administration ANXIETY Ondansetron HCl 4 mg 01/12/20 22:42 01/13/20 07:39 Ondansetron 2 Mg /Ml Sdv 2 Ml IVP 4 mg Q6H PRN Administration NAUSEA AND VOMITI NG Pantoprazole Sodiu m 40 mg 01/13/20 09:00 01/13/20 08:08 Pantoprazole 40 Mg Sdv IVP 40 mg DAILY DANILO Administration meloxicam Allergy (Verified 01/12/20 17:20) ADR-Abdominal Pain Vitals/I&O/Wt Last Vital Signs Temp 97.5 F L 01/13/20 11:23 Pulse 100 01/13/20 13:30 Resp 18 01/13/20 13:30 BP 115/71 01/13/20 11:23 Pulse Ox 93 01/13/20 13:30 01/12/20 01/13/20 01/13/20 22:59 06:59 14:59 Intake Total 1045 / 1045 Output Total 550 / 550 Balance -550 / -550 1045 / 1045 Weight last 48 hrs Weight 90.718 kg Physical Exam Const: COMMON NORMALS: no acute distress, patient oriented x3 and alert GENERAL APPEARANCE: cooperative and comfortable NUTRITIONAL APPEARANCE: obese ORIENTATION/CONSCIOUSNESS: Yes awake HENMT: COMMON NORMALS: normocephalic, atraumatic and hearing grossly normal bilaterally HEAD & SCALP: normocephalic and atraumatic MOUTH: moist mucous membranes abnormal Details: parched Eye: COMMON NORMALS: Equal, round and reactive pupils present, EOMs intact bilaterally and conjunctivae normal CONJUNCTIVA: Yes conjunctivae normal PUPIL: Yes Equal, round and reactive pupils present Neck/C-Spine: COMMON NORMALS: full ROM GENERAL: Yes normal visual inspection and Yes trachea midline Resp: COMMON NORMALS: normal respiratory effort, No retractions, No use of accessory muscles and clear to auscultation bilaterally EFFORT & INSPECTION: Yes able to speak in complete sentences, Yes symmetric chest movement and No tachypneic AUSCULTATION: clear to auscultation bilaterally Cardio: COMMON NORMALS: regular rate, regular rhythm, S1 normal heart sound present, S2 normal heart sound present and No murmurs present (Cardio) RATE: regular rate RHYTHM: regular rhythm HEART SOUNDS: S1 normal heart sound present and S2 normal heart sound present GI: COMMON NORMALS: Soft to palpation and non-tender INSPECTION: Yes normal to inspection and Yes central obesity AUSCULTATION: Yes Hypoactive bowel sounds present PALPATION: Yes Soft to palpation, No Tenderness to palpation present (GI), No Guarding due to palpation present (GI) and No Rigid due to palpation Extremity: COMMON NORMALS: normal to inspection, full ROM and no clubbing, cyanosis or edema; negative for no pedal edema Neuro: COMMON NORMALS: patient oriented x3, moves all extremities, no focal motor deficits and no sensory deficits noted SENSORIUM/ORIENTATION: Yes alert Psych: COMMON NORMALS: mental status grossly normal, Normal thought process present, cooperative, normal affect and speech normal SPEECH: Yes normal speech THOUGHT PROCESS: Normal thought process present Skin: COMMON NORMALS: no rashes or lesions noted, no jaundice, no petechiae and no mottling GENERAL SKIN EXAM: no rashes or lesions noted Data : 01/13/20 04:55 01/13/20 04:55 A&P Assessment and plan (1) Ileus: -likely secondary to constipation -currently NPO; as she is passing flatus, start on CLD -give enema x 1 and monitor response -pain control, antiemetics as needed -noted imaging findings Status: Acute (2) Electrolyte abnormality: -noted to have hypokalemia, hyponatremia, hypocalcemia -hypokalemia improved with replacement -Na trending up; continue to monitor; on IVF -corrected Ca-8.1 Status: Acute Additional A&P Information -s/p recent L4-L5 posterior lumbar interbody fusion; done 01/[address] Ugarte -Morbid obesity: BMI-35 kg/m2 -hx of HTN; VSS -hx of NIDDM; accucheks, ISS, hypoglycemia precautions -depression -has known hx of esophagitis; noted evidence of this on CT; noted on prior endoscopy; on PPI and carafate -chronic smoker -hyperlipidemia; on statin -NPO; advance to CLD for now -GI ppx with PPI -DVT ppx with SCDs -Dispo: home -Code status: FULL code Attestations Medical Necessity Statement*: Patient requires hospitalization for continued management of ileus, constipation, correction of electrolytes. Time Spent in Patient Care: 16 - 35 minutes (>than 50% of time spent in counselling and/or direct pt care on unit). Coding Level of Care Code Acute Wellness Specialist for g Fwd Exam Comprehensive Diagnoses Ileus K56.7 Electrolyte abnormality E87.8
[2020-01-13] MEDS: LORazepam 2 mg/mL INJ 1 mL 0.5 MG IVP (17:45)
[2020-01-14] VITALS (12 sets, daily range): BP systolic 99–136; BP diastolic 59–84; PULSE 88–112; RESP 16–19; TEMP 36.4–36.8; O2SAT 92–97
[2020-01-14 05:50] LABS: Anion Gap 10.4 (5-19); Blood Urea Nitrogen 9 mg/dL (6-20); Calcium 7.3 mg/dL (8.5-10.5); Carbon Dioxide 28 mmol/L (22-29); Chloride 96 mmol/L (98-107); Glomerular Filtration Rate 229.3 mL/min (90-130); Glucose 156 mg/dL (65-115); Osmolality Calculated 274 mOsm/kg (285-295); Potassium 3.4 mmol/L (3.5-5.1); Sodium 131 mmol/L (136-145)
[2020-01-14] MEDS: HYDROmorphone 1 mg/mL INJ 1 mL 2 MG IVP ×2 (08:39→13:41)
[2020-01-14] MEDS: pantoprazole 40 mg SDV IVP (08:39)
[2020-01-14] MEDS: dextrose 5%-ns + KCl 20 20 MEQ/1,000 ML BAG 100 MEQ IV (08:40)
--- NOTE | 2020-01-14 09:05 | PC.NURSE ---
pt anxious during morning assessment and states, You guys have not been giving me any of my home medications. I feel so different because I have not had my meds. Ensured pt that this nurse would notify Dr. Raya and this nurse did. No new orders received.
[2020-01-14] MEDS: polyethylene glycol 3350 Pkt 17 gm PO (11:02)
[2020-01-14] MEDS: sennosides-docusate Tablet 2 TAB PO ×2 (11:02→17:53)
[2020-01-14] MEDS: sucralfate 1 gm Tablet PO ×3 (11:02→22:09)
[2020-01-14] MEDS: metoprolol succinate ER (24 HR) 100 mg Tablet PO (11:02)
[2020-01-14] MEDS: potassium chloride ER 20 mEq Tablet 40 MEQ PO (11:02)
[2020-01-14] MEDS: amlodipine 10 mg Tablet PO (11:02)
[2020-01-14] MEDS: fluticasone nasal spray 16gm Btl 1 SPRAY INTRANASAL (11:38)
--- NOTE | 2020-01-14 12:54 | PC.RESP ---
SMOKING CESSATION INFORMATION SENT TO PATIENT.
[2020-01-14] MEDS: cyclobenzaprine 10 mg Tablet PO ×2 (14:35→19:49)
[2020-01-14] MEDS: LORazepam 2 mg/mL INJ 1 mL 0.5 MG IVP (16:26)
[2020-01-14] MEDS: atorvastatin 40 mg Tablet PO (17:53)
--- NOTE | 2020-01-14 18:54 | PC.NURSE ---
ROUNDING SHIFT BEGINNING Here as 1:1 sitter and pt care nurse for 7p-7a shift. Is resting in bed. Pleasant. When questioned knows she is in the hospital and able to tell me it is December and almost Thanks[place]. Then she will be talking to herself and to noone in the room. Yelled out for someone to check the pies to see if are done yet. Tells me she is tired. Reports pain at a 6 in her back. Recent back surgery with dressing to medial lumbare area. Dark bruising to back kendrick left side. Denies nausea. Abd is soft with generalized tenderness.
[2020-01-14] MEDS: quetiapine 100 mg Tablet PO (19:49)
--- NOTE | 2020-01-14 20:44 | P.PN_ITS ---
Subjective Subjective: Interval history: Patient seen earlier this afternoon, noted to be quite confused and disoriented, received Ativan and since then has been noted to be altered. Reportedly was altered overnight when she received both Dilaudid and Ativan. Has had an additional small bowel movement, escalated bowel regimen. Seems to be tolerating oral intake. at bedside during my encounter. Medications: Reviewed: Yes Medication Review Details: Active Medications Generic Name Dose Route Start Last Admin Trade Name Freq PRN Reason Stop Dose Admin Albuterol/Ipratrop ium 3 ml 01/12/20 22:42 Ipratropium-Albu terol 3 Ml Neb INHALATION Q4H PRN SHORTNESS OF KANG TH Amlodipine Besylat e 10 mg 01/14/20 11:00 01/14/20 11:02 Amlodipine 10 Mg Tablet PO 10 mg DAILY DANILO Administration Atorvastatin Calci um 40 mg 01/14/20 18:00 01/14/20 17:53 Atorvastatin 40 Mg Tablet PO 40 mg QPM DANILO Administration Cyclobenzaprine HC l 10 mg 01/14/20 15:00 01/14/20 19:49 Cyclobenzaprine 10 Mg Tablet PO 10 mg TID DANILO Administration Fluticasone Propio nain 1 spray 01/14/20 11:00 01/14/20 11:38 Fluticasone Nasa l [place] 16gm Btl INTRANASAL 1 spray DAILY DANILO Administration Hydromorphone HCl 2 mg 01/12/20 22:42 01/14/20 13:41 Hydromorphone 1 Mg/Ml Inj 1 Ml IVP 2 mg Q4H PRN Administration abd pain or back pain Potassium Chloride /Dextrose/Sod Cl 20 meq in 1,000 m ls @ 75 mls/hr 01/12/20 22:42 01/14/20 08:40 Dextrose 5%-Ns + Kcl 20 IV 100 mls/hr .[id number] DANILO Administration Lorazepam 0.5 mg 01/12/20 22:42 01/14/20 16:26 Lorazepam 2 Mg/M l Inj 1 Ml IVP 0.5 mg Q8H PRN Administration ANXIETY Metoprolol Succina te 100 mg 01/14/20 10:50 01/14/20 11:02 Metoprolol Succi nain Er (24 Hr) 10 0 Mg Tablet PO 100 mg DAILY DANILO Administration Ondansetron HCl 4 mg 01/12/20 22:42 01/13/20 07:39 Ondansetron 2 Mg /Ml Sdv 2 Ml IVP 4 mg Q6H PRN Administration NAUSEA AND VOMITI NG Pantoprazole Sodiu m 40 mg 01/13/20 09:00 01/14/20 08:39 Pantoprazole 40 Mg Sdv IVP 40 mg DAILY DANILO Administration Polyethylene Glyco l 17 gm 01/14/20 10:45 01/14/20 11:02 Polyethylene Gly col 3350 Pkt 17 Gm PO 17 gm DAILY DANILO Administration Potassium Chloride 40 meq 01/14/20 10:50 01/14/20 11:02 Potassium Chlori de Er 20 Meq Table t PO 40 meq DAILY DANILO Administration Quetiapine Fumarat e 100 mg 01/14/20 21:00 01/14/20 19:49 Quetiapine 100 M g Tablet PO 100 mg BEDTIME DANILO Administration Senna/Docusate Sod ium 2 tab 01/14/20 10:45 01/14/20 17:53 Sennosides-Docus ate Tablet PO 2 tab BID DANILO Administration Sucralfate 1 gm 01/14/20 11:00 01/14/20 17:53 Sucralfate 1 Gm Tablet PO 1 gm Q6H DANILO Administration meloxicam Allergy (Verified 01/12/20 17:20) ADR-Abdominal Pain Vitals/I&O/Wt Last Vital Signs Temp 98 F 01/14/20 19:39 Pulse 90 01/14/20 20:18 Resp 17 01/14/20 20:18 BP 107/71 01/14/20 19:39 Pulse Ox 97 01/14/20 20:18 01/14/20 01/14/20 01/14/20 06:59 14:59 22:59 Intake Total 5 1810 / 1810 Output Total 100 / 300 500 / 500 900 / 1400 Balance -100 / 1745 1310 / 1310 -900 / 410 Physical Exam Const: COMMON NORMALS: no acute distress and alert GENERAL APPEARANCE: cooperative and comfortable NUTRITIONAL APPEARANCE: obese ORIENTATION/CONSCIOUSNESS: Yes awake and Yes confused HENMT: COMMON NORMALS: normocephalic, atraumatic and hearing grossly normal bilaterally HEAD & SCALP: normocephalic and atraumatic MOUTH: moist mucous membranes abnormal Details: parched Eye: COMMON NORMALS: Equal, round and reactive pupils present, EOMs intact [place] aterally and conjunctivae normal CONJUNCTIVA: Yes conjunctivae normal PUPIL: Yes Equal, round and reactive pupils present Neck/C-Spine: COMMON NORMALS: full ROM GENERAL: Yes normal visual inspe ction and Yes trachea midline Resp: COMMON NORMALS: normal respiratory effort, No retractions, No use of accessory muscles and clear to auscultation bilaterally EFFORT & INSPECTION: Yes able to speak in complete sentences, Yes symmetric chest movement and No tachypneic AUSCULTATION: clear to auscultation bilaterally Cardio: COMMON NORMALS: regular rate, regular rhythm, S1 normal heart sound present, S2 normal heart sound present and No murmurs present (Cardio) RATE: regular rate RHYTHM: regular rhythm HEART SOUNDS: S1 normal heart sound present and S2 normal heart sound present GI: COMMON NORMALS: Normal to inspection, nondistended, normoactive bowel sounds present, Soft to palpation and non-tender INSPECTION: Yes normal to inspection and Yes central obesity PALPATION: Yes Soft to palpation, No Tenderness to palpation present (GI), No Guarding due to palpation present (GI) and No Rigid due to palpation Back/Pelvis: OTHER: -noted bruising over L lower back, dressing in place, minimal strikethrough; some tenderness to palpation around instrumentation sites Extremity: COMMON NORMALS: normal to inspection, full ROM and no clubbing, cyanosis or edema; negative for no pedal edema Neuro: COMMON NORMALS: moves all extremities, no focal motor deficits and no sensory deficits noted SENSORIUM/ORIENTATION: Yes alert and Yes Orientation impaired Psych: COMMON NORMALS: mental status grossly normal, Normal thought process present, cooperative, normal affect and speech normal SPEECH: Yes normal speech THOUGHT PROCESS: Normal thought process present Skin: COMMON NORMALS: no rashes or lesions noted, no jaundice, no petechiae and no mottling GENERAL SKIN EXAM: no rashes or lesions noted Data : 01/13/20 04:55 01/14/20 05:04 A&P Assessment and plan (1) Ileus: -likely secondary to constipation -tolerating GI soft diet -give enema x 1 and monitor response -pain control, antiemetics as needed -noted imaging findings Status: Acute (2) Electrolyte abnormality: -noted to have hypokalemia, hyponatremia, hypocalcemia -hypokalemia improved with replacement -Na trending up; continue to monitor; on IVF -corrected Ca-8.1 Status: Acute Additional A&P Information -s/p recent L4-L5 posterior lumbar interbody fusion; done 01/[address] Ugarte -Morbid obesity: BMI-35 kg/m2 -hx of HTN; VSS -hx of NIDDM; accucheks, ISS, hypoglycemia precautions -depression -has known hx of esophagitis; noted evidence of this on CT; noted on prior endoscopy; on PPI and carafate -chronic smoker -hyperlipidemia; on statin -advanced to GI soft diet -GI ppx with PPI -DVT ppx with SCDs -Dispo: home -Code status: FULL code -anticipate d/c home in 24-48 hrs if continued stability/improvement Attestations Medical Necessity Statement*: Patient requires hospitalization for continued management of opiate-induced constipation and ileus. Time Spent in Patient Care: 16 - 35 minutes (>than 50% of time spent in counselling and/or direct pt care on unit) . Coding Level of Care Code Acute Welfare Service Aide for Chg Fwd Diagnoses Ileus K56.7 Electrolyte abnormality E87.8
[2020-01-14] MEDS: lactulose oral liq 20 gm/30 mL UDC PO (21:25)
--- NOTE | 2020-01-14 22:15 | PC.NURSE ---
AGITATION Woke up very agitated. Wanted to walk but when got to doorway with her she started yelling at nurses at nurses station that she needed help because she had been kidnapped. Very confused and not listening to nurses
--- NOTE | 2020-01-14 22:18 | PC.NURSE ---
PRACTICAL NURSE CLINICAL COORDINATOR Took telemetry off and refusing it to be replaced
[2020-01-14] MEDS: TRAMadol 50 mg Tablet PO (22:32)
[2020-01-15] VITALS (8 sets, daily range): BP systolic 101–133; BP diastolic 64–84; PULSE 88–107; RESP 16–18; TEMP 36.4–37.5; O2SAT 93–95
--- NOTE | 2020-01-15 01:06 | PC.NURSE ---
CONFUSION/RESTLESSNESS Has been quite confused and restless first half of shift. Slept for about an hour after received pm meds then awake. Becomes easily agitated when trying to redirect or reorient her. Talked to on phone X2. Lays down for short while then up sitting on side of bed. Wants to go home. c/o bed not being comfortable. Picks at IV and wants it out. Says is glass in her arm and she doesn't want any foreign body in her arm. Talks alot but doesn't make alot of sense. Speech slurs Sitting up in chair at present
[2020-01-15] MEDS: lactulose oral liq 20 gm/30 mL UDC PO ×2 (04:23→08:43)
[2020-01-15] MEDS: sucralfate 1 gm Tablet PO ×3 (04:23→17:27)
[2020-01-15 05:43] LABS: Anion Gap 12.6 (5-19); Blood Urea Nitrogen 6 mg/dL (6-20); Carbon Dioxide 28 mmol/L (22-29); Chloride 94 mmol/L (98-107); Glomerular Filtration Rate 164.5 mL/min (90-130); Glucose 125 mg/dL (65-115); Osmolality Calculated 271 mOsm/kg (285-295); Potassium 3.6 mmol/L (3.5-5.1); Sodium 131 mmol/L (136-145)
[2020-01-15 05:57] LABS: Calcium 8.3 mg/dL (8.5-10.5)
--- NOTE | 2020-01-15 06:00 | PC.NURSE ---
SHIFT SUMMARY SECOND HALF OF NIGHT Pt remained quite confused and restless until finally falling asleep around 0445. Was repeatedly laying down then sitting back up on side of bed. Easily agitated with any kind of redirection. Fell asleep with head at the foot of the bed but appeared comfortable. Was cooperative with lab drawing blood this am, taking meds and VS being taken. Just reminded she cannot go home until has good BM and labs are good then was ok with these things being done
--- NOTE | 2020-01-15 08:01 | PC.NURSE ---
nurse sitting 1on1 asked me not to wake the patient. The patient had a hard night.
[2020-01-15] MEDS: cyclobenzaprine 10 mg Tablet PO ×3 (08:43→20:40)
[2020-01-15] MEDS: metoprolol succinate ER (24 HR) 100 mg Tablet PO (08:43)
[2020-01-15] MEDS: amlodipine 10 mg Tablet PO (08:43)
[2020-01-15] MEDS: sennosides-docusate Tablet 2 TAB PO (08:43)
[2020-01-15] MEDS: polyethylene glycol 3350 Pkt 17 gm PO (08:43)
[2020-01-15] MEDS: pantoprazole 40 mg SDV IVP (08:44)
[2020-01-15] MEDS: potassium chloride ER 20 mEq Tablet 40 MEQ PO (08:44)
[2020-01-15] MEDS: fluticasone nasal spray 16gm Btl 1 SPRAY INTRANASAL (08:47)
[2020-01-15] MEDS: TRAMadol 50 mg Tablet PO (09:58)
--- NOTE | 2020-01-15 12:26 | P.PN_ITS ---
Subjective Subjective: Interval history: Sitter required overnight due to confusion, restlessness. Seems a little groggy this morning but much more alert and oriented. Had a large BM this AM, had 1150 mL urine output overnight. Improved Na, hemodynamically stable, afebrile. Will discontinue sitter and monitor. Spoke with her Benji over the phone, he will be coming to see patient this afternoon discussed the patient is quite intent on going home this afternoon but can re-discuss this once he has a chance to see her later today as she is still not quite at her baseline mental status and will require supervision.. Medications: Reviewed: Yes Medication Review Details: Active Medications Generic Name Dose Route Start Last Admin Trade Name Freq PRN Reason Stop Dose Admin Acetaminophen 650 mg 01/14/20 20:45 Acetaminophen 32 5 Mg Tablet PO Q6H PRN MILD PAIN Hydrocodone Bitart /Acetaminophen 1 tab 01/14/20 20:45 Hydrocodone-Acet aminophen 5-325 Mg Tablet PO Q4H PRN MODERATE TO SEVER E PAIN Albuterol/Ipratrop ium 3 ml 01/12/20 22:42 Ipratropium-Albu terol 3 Ml Neb INHALATION Q4H PRN SHORTNESS OF KANG TH Amlodipine Besylat e 10 mg 01/14/20 11:00 01/15/20 08:43 Amlodipine 10 Mg Tablet PO 10 mg DAILY DANILO Administration Atorvastatin Calci um 40 mg 01/14/20 18:00 01/14/20 17:53 Atorvastatin 40 Mg Tablet PO 40 mg QPM DANILO Administration Cyclobenzaprine HC l 10 mg 01/14/20 15:00 01/15/20 08:43 Cyclobenzaprine 10 Mg Tablet PO 10 mg TID DANILO Administration Fluticasone Propio nain 1 spray 01/14/20 11:00 01/15/20 08:47 Fluticasone Nasa l [place] 16gm Btl INTRANASAL 1 spray DAILY DANILO Administration Hydromorphone HCl 2 mg 01/12/20 22:42 01/14/20 13:41 Hydromorphone 1 Mg/Ml Inj 1 Ml IVP 2 mg Q4H PRN Administration abd pain or back pain Lactulose 20 gm 01/14/20 21:00 01/15/20 08:43 Lactulose Oral L iq 20 Gm/30 Ml Udc PO 20 gm Q6H DANILO Administration Lorazepam 0.5 mg 01/12/20 22:42 01/14/20 16:26 Lorazepam 2 Mg/M l Inj 1 Ml IVP 0.5 mg Q8H PRN Administration ANXIETY Metoprolol Succina te 100 mg 01/14/20 10:50 01/15/20 08:43 Metoprolol Succi nain Er (24 Hr) 10 0 Mg Tablet PO 100 mg DAILY DANILO Administration Ondansetron HCl 4 mg 01/12/20 22:42 01/13/20 07:39 Ondansetron 2 Mg /Ml Sdv 2 Ml IVP 4 mg Q6H PRN Administration NAUSEA AND VOMITI NG Pantoprazole Sodiu m 40 mg 01/13/20 09:00 01/15/20 08:44 Pantoprazole 40 Mg Sdv IVP 40 mg DAILY DANILO Administration Polyethylene Glyco l 17 gm 01/14/20 10:45 01/15/20 08:43 Polyethylene Gly col 3350 Pkt 17 Gm PO 17 gm DAILY DANILO Administration Potassium Chloride 40 meq 01/14/20 10:50 01/15/20 08:44 Potassium Chlori de Er 20 Meq Table t PO 40 meq DAILY DANILO Administration Quetiapine Fumarat e 100 mg 01/14/20 21:00 01/14/20 19:49 Quetiapine 100 M g Tablet PO 100 mg BEDTIME DANILO Administration Senna/Docusate Sod ium 2 tab 01/14/20 10:45 01/15/20 08:43 Sennosides-Docus ate Tablet PO 2 tab BID DANILO Administration Sucralfate 1 gm 01/14/20 11:00 01/15/20 11:28 Sucralfate 1 Gm Tablet PO 1 gm Q6H DANILO Administration Tramadol HCl 50 mg 01/14/20 20:45 01/15/20 09:58 Tramadol 50 Mg T ablet PO 50 mg Q6H PRN Administration MODERATE PAIN meloxicam Allergy (Verified 01/12/20 17:20) ADR-Abdominal Pain Vitals/I&O/Wt Last Vital Signs Temp 97.6 F 01/15/20 11:20 Pulse 101 H 01/15/20 11:20 Resp 16 01/15/20 11:20 BP 133/81 01/15/20 11:20 Pulse Ox 93 01/15/20 11:01/14/20 01/15/20 01/15/20 22:59 06:59 14:59 Intake Total 750 / 2560 240 / 2800 360 / 360 Output Total 1450 / 1950 300 / 2250 Balance -700 / 610 -60 / 550 360 / 360 Physical Exam Const: COMMON NORMALS: no acute distress, patient oriented x3 and alert GENERAL APPEARANCE: cooperative and comfortable NUTRITIONAL APPEARANCE: obese ORIENTATION/CONSCIOUSNESS: Yes awake OTHER: -more oriented though seems a little groggy HENMT: COMMON NORMALS: normocephalic, atraumatic, hearing grossly normal bilaterally and moist oral mucous membranes HEAD & SCALP: normocephalic and atraumatic Eye: COMMON NORMALS: Equal, round and reactive pupils present, EOMs intact bilaterally and conjunctivae normal CONJUNCTIVA: Yes conjunctivae normal PUPIL: Yes Equal, round and reactive pupils present Neck/C-Spine: COMMON NORMALS: full ROM GENERAL: Yes normal visual inspection and Yes trachea midline Resp: COMMON NORMALS: normal respiratory effort, No retractions, No use of accessory muscles and clear to auscultation bilaterally EFFORT & INSPECTION: Yes able to speak in complete sentences, Yes symmetric chest movement and No tachypneic AUSCULTATION: clear to auscultation bilaterally Cardio: COMMON NORMALS: regular rate, regular rhythm, S1 normal heart sound present, S2 normal heart sound present and No murmurs present (Cardio) RATE: regular rate RHYTHM: regular rhythm HEART SOUNDS: S1 normal heart sound present and S2 normal heart sound present GI: COMMON NORMALS: Normal to inspection, nondistended, normoactive bowel sounds present, Soft to palpation and non-tender INSPECTION: Yes normal to inspection and Yes central obesity AUSCULTATION: Yes Hypoactive bowel sounds present PALPATION: Yes Soft to palpation, No Tenderness to palpation present (GI), No Guarding due to palpation present (GI) and No Rigid due to palpation Back/Pelvis: OTHER: -noted bruising over L lower back, dressing in place, minimal strikethrough; some tenderness to palpation around instrumentation sites Extremity: COMMON NORMALS: normal to inspection, full ROM and no clubbing, cyanosis or edema; negative for no pedal edema Neuro: COMMON NORMALS: patient oriented x3, moves all extremities, no focal motor deficits and no sensory deficits noted SENSORIUM/ORIENTATION: Yes alert and Yes Orientation impaired Psych: COMMON NORMALS: mental status grossly normal, Normal thought process present, cooperative, normal affect and speech normal SPEECH: Yes normal speech THOUGHT PROCESS: Normal thought process present Skin: COMMON NORMALS: no rashes or lesions noted, no jaundice, no petechiae and no mottling GENERAL SKIN EXAM: no rashes or lesions noted Data : 01/13/20 04:55 01/15/20 04:20 A&P Assessment and plan (1) Ileus: -likely secondary to constipation -tolerating GI soft diet -give enema x 1 and on bowel regimen with good response -pain control, antiemetics as needed -noted imaging findings Status: Resolved (2) Electrolyte abnormality: -noted to have hypokalemia, hyponatremia, hypocalcemia -hypokalemia resolved with replacement -Na trending up; continue to monitor; off IVF -corrected Ca-8.7 Status: Acute Additional A&P Information -s/p recent L4-L5 posterior lumbar interbody fusion; done 01/[address] Ugarte -Morbid obesity: BMI-35 kg/m2 -hx of HTN; VSS -hx of NIDDM; accucheks, ISS, hypoglycemia precautions -depression -has known hx of esophagitis; noted evidence of this on CT; noted on prior endoscopy; on PPI and carafate -chronic smoker -hyperlipidemia; on statin -noted confusion yesterday, likely due to ativan; improved mental status today, discontinue sitter -advanced to GI soft diet -GI ppx with PPI -DVT ppx with SCDs -Dispo: home -Code status: FULL code Attestations Medical Necessity Statement*: Patient requires hospitalization pending return of mental status to baseline. Time Spent in Patient Care: 16 - 35 minutes (>than 50% of time spent in counselling and/or direct pt care on unit) . Coding Level of Care Code Acute Continuity Manager for Chg Fwd Diagnoses Ileus K56.7 Electrolyte abnormality E87.8
[2020-01-15] MEDS: HYDROcodone-acetaminophen 5-325 mg Tablet 1 TAB PO (15:02)
[2020-01-15] MEDS: atorvastatin 40 mg Tablet PO (17:27)
[2020-01-15] MEDS: quetiapine 100 mg Tablet PO (20:40)
[2020-01-16] VITALS: BP 106/69; PULSE 84; RESP 16; TEMP 36.6; O2SAT 95
[2020-01-16 04:00] VITALS: BP 111/72; PULSE 92; RESP 16; TEMP 36.5; O2SAT 94
[2020-01-16] MEDS: sucralfate 1 gm Tablet PO (04:05)
--- NOTE | 2020-01-16 05:07 | PC.NURSE ---
shift summary Patient has slept most of the night. Her vitals have been good. She has not had any pain. Nothing concerning this shift.
[2020-01-16] MEDS: TRAMadol 50 mg Tablet PO (05:46)
[2020-01-16 08:00] VITALS: BP 113/70; PULSE 95; RESP 18; TEMP 36.2; O2SAT 92
--- NOTE | 2020-01-16 08:02 | P.DS_ITS ---
Discharge Providers Date of Admission: 01/12/20 19:44 Date of Discharge: January 16, 2020 Attending Provider at Admission: Lupe Hwagn MD Attending Provider at Discharge: Rose Mary Raya MD Consults: None Primary Care Provider: Marianne Mirza Diagnoses at Discharge Discharge Diagnosis (1) Ileus: Status: Resolved (2) Electrolyte abnormality: Status: Resolved Other Information Additional DC diagnoses/information: -s/p recent L4-L5 posterior lumbar interbody fusion; done 01/[address] Ugarte -Morbid obesity: BMI-35 kg/m2 -hx of HTN; VSS -hx of NIDDM; accucheks, ISS, hypoglycemia precautions -depression -has known hx of esophagitis; noted evidence of this on CT; noted on prior endoscopy; on PPI and carafate -chronic smoker -hyperlipidemia; on statin -noted confusion, likely due to ativan; mental status has returned to baseline Reason for Visit Reason for Visit: ABD/BACK PAIN S/P SURGERY Hospital Course Hospital Course Patient was admitted to the medical surgical floor and due to noted ileus likely secondary to opiate induced constipation she was kept n.p.o. and started on be fluid hydration, bowel regimen and she already had an NG tube placed in the ER. She accidentally removed the NG tube overnight but had ready begun to feel better particularly in terms of abdominal distention. Bowel regimen was escalated and she has had bowel movements; with improvement in her symptoms, oral intake was introduced and advanced as tolerated. During the course of her hospital stay and due to recent back surgery she did receive pain medications and at least two doses of Ativan the last of which caused significant altered mental status requiring one-on-one monitoring. Fortunately mental status cleared fairly quickly and she has not returned to her baseline. Sitter has since been discontinued. Has done well particularly overnight, has been hemodynamically stable, afebrile, voiding independently without difficulty and maintained on room air. She will be continued on a bowel regimen on discharge home. She will need continued follow-up with Dr. Ugarte as well as her primary care physician. She is advised to seek medical attention immediately should any of her symptoms worsen or recur. Of note, she did have some electrolyte abnormalities that were corrected with IV fluid hydration. Physical Exam Const: COMMON NORMALS: no acute distress, patient oriented x3 and alert GENERAL APPEARANCE: cooperative and comfortable NUTRITIONAL APPEARANCE: obese ORIENTATION/CONSCIOUSNESS: Yes awake HENMT: COMMON NORMALS: normocephalic, atraumatic, hearing grossly normal bilaterally and moist oral mucous membranes HEAD & SCALP: normocephalic and atraumatic MOUTH: moist mucous membranes abnormal Details: parched Eye: COMMON NORMALS: Equal, round and reactive pupils present, EOMs intact bilaterally and conjunctivae normal CONJUNCTIVA: Yes conjunctivae normal PUPIL: Yes Equal, round and reactive pupils present Neck/C-Spine: COMMON NORMALS: full ROM GENERAL: Yes normal visual inspection and Yes trachea midline Resp: COMMON NORMALS: normal respiratory effort, No retractions, No use of accessory muscles and clear to auscultation bilaterally EFFORT & INSPECTION: Yes able to speak in complete sentences, Yes symmetric chest movement and No tachypneic AUSCULTATION: clear to auscultation bilaterally Cardio: COMMON NORMALS: regular rate, regular rhythm, S1 normal heart sound present, S2 normal heart sound present and No murmurs present (Cardio) RATE: regular rate RHYTHM: regular rhythm HEART SOUNDS: S1 normal heart sound present and S2 normal heart sound present GI: COMMON NORMALS: Normal to inspection, nondistended, normoactive bowel sounds present, Soft to palpation and non-tender INSPECTION: Yes normal to inspection and Yes central obesity AUSCULTATION: Yes Hypoactive bowel sounds present PALPATION: Yes Soft to palpation, No Tenderness to palpation present (GI), No Guarding due to palpation present (GI) and No Rigid due to palpation Back/Pelvis: OTHER: -noted bruising over L lower back, dressing in place, minimal strikethrough; some tenderness to palpation around instrumentation sites Extremity: COMMON NORMALS: normal to inspection, full ROM and no clubbing, cyanosis or edema; negative for no pedal edema Neuro: COMMON NORMALS: patient oriented x3, moves all extremities, no focal motor deficits and no sensory deficits noted SENSORIUM/ORIENTATION: Yes alert and Yes Orientation impaired Psych: COMMON NORMALS: mental status grossly normal, Normal thought process present, cooperative, normal affect and speech normal SPEECH: Yes normal speech THOUGHT PROCESS: Normal thought process present Skin: COMMON NORMALS: no rashes or lesions noted, no jaundice, no petechiae and no mottling GENERAL SKIN EXAM: no rashes or lesions noted Discharge Data Data Completed and Pending: Completed Studies During Hospitalization Category Date Time Status CT angio chest w abd pel w con Urge nt Cat Scan 11/22/20 16:39 Completed XR KUB portable 7 4018 Routine Exams 01/13/20 09:00 Completed XR chest 1V matilda ble 61623 Stat Exams 01/12/20 16:39 Completed Vitals: Last Vital Signs Temp 97.7 F 01/16/20 04:00 Pulse 92 01/16/20 04:00 Resp 16 01/16/20 04:00 BP 111/72 01/16/20 04:00 Pulse Ox 94 01/16/20 04:00 Discharge Plan Discharge Patient Disposition: Home Condition: Stable Prescriptions: New polyethylene glycol 3350 17 gram Powder In Packet 17 g PO DAILY 30 Days Qty: 30 RF: 0 sennosides-docusate sodium 8.6-50 mg Tablet 1 tab PO BID 30 Days Qty: 60 RF: 0 Continued quetiapine 100 mg tablet 100 mg PO BEDTIME RF: 0 (DME) Wheelchair Qty: 1 RF: 0 sucralfate [Carafate] 1 gram tablet 1 gm PO Q6H PRN (Reason: stomach upset) Qty: 120 RF: 1 (DME) hospital bed See Rx Instructions .Route .MEDSUPPLY Qty: 1 RF: 0 cyclobenzaprine 10 mg tablet 10 mg PO TID Qty: 90 RF: 0 amlodipine 10 mg tablet 10 mg PO DAILY RF: 0 albuterol sulfate [ProAir HFA] 90 mcg/actuation HFA aerosol inhaler 1 puff INHALATION QID PRN (Reason: Shortness Of Breath) RF: 0 pantoprazole [Protonix] 40 mg tablet,delayed release (DR/EC) 40 mg PO BIDWM 42 Days Qty: 42 RF: 3 atorvastatin 40 mg Tablet 40 mg PO QPM RF: 0 metformin 500 mg Tablet 500 mg PO BID RF: 0 metoprolol succinate 100 mg Tablet Extended Release 24 Hr 100 mg PO DAILY RF: 0 fluticasone propionate 50 mcg/actuation [place],Suspension 1 spray INTRANASAL DAILY RF: 0 hydrocodone-acetaminophen 5-325 mg tablet 1 - 2 tab PO .Q4-6H Qty: 40 RF: 0 ibuprofen 200 mg Tablet 400 mg PO PRN RF: 0 Discharge Orders: Discharge Order (Routine); Ordered 01/16/20 Ordered By: Rose Mary Raya Referrals: Colin Ugarte DO [Physician] - Marianne Mirza PA [Primary Care Provider] - 4-7 days Discharge Diet: Advance as tolerated, Cardiac and Diabetic Discharge Activity: Increase activity as tolerated and As per PT/OT instructions Discharge Attestations Time Spent in Discharge Care*: less than 30 min Specific Discharge Activities: educating patient, educating and/or supporting family/caregiver, discussing with pillowcase cutter/social workers/dc planners, documenting/other paperwork and evaluating patient/reviewing data Status at Discharge: Cognitive status at discharge: cognitively intact , Behavioral status at discharge: cooperative , Overall status at discharge: patient is progressing back to baseline Quality Metrics Clinical Quality Measures During this hospital stay, did patient experience: None Coding Level of Care Code 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
[2020-01-16] MEDS: potassium chloride ER 20 mEq Tablet 40 MEQ PO (08:54)
[2020-01-16] MEDS: pantoprazole DR 40 mg Tablet PO (08:54)
[2020-01-16] MEDS: amlodipine 10 mg Tablet PO (08:54)
[2020-01-16] MEDS: metoprolol succinate ER (24 HR) 100 mg Tablet PO (08:54)
[2020-01-16] MEDS: cyclobenzaprine 10 mg Tablet PO (08:54)
[2020-01-16 09:02] VITALS: PULSE 94; RESP 16; O2SAT 91
[2020-01-16] MEDS: ipratropium-albuterol 3 mL Neb INHALATION (09:02)
[2020-01-16 09:10] VITALS: PULSE 95; RESP 17; O2SAT 95
[2020-01-16 13:07] VITALS: BP 113/70; PULSE 95; RESP 17; TEMP 36.2; O2SAT 95
--- NOTE | 2020-01-16 13:07 | PC.NURSE ---
pt iv taken out and intact. pt discharge instructions explained and all questions answered.
== END 2020-01-16 13:11 | disposition home or self-care (01) | DRG 389 ==
LOC: ER 15:59 → MEDSURG 20:11
PROVIDERS: Admitting Provider Internal Medicine; Emergency Provider Emergency Medicine; PCP Physician Assistant; Visit Provider Family Medicine
DX: K56.7 Ileus, unspecified (principal); E87.1 Hypo-osmolality and hyponatremia; T40.605A Adverse effect of unspecified narcotics, initial encounter; Z98.1 Arthrodesis status; I95.9 Hypotension, unspecified; F41.9 Anxiety disorder, unspecified; F32.9 Major depressive disorder, single episode, unspecified; E11.9 Type 2 diabetes mellitus without complications; I10 Essential (primary) hypertension; Z96.651 Presence of right artificial knee joint; F17.210 Nicotine dependence, cigarettes, uncomplicated; E87.6 Hypokalemia; E83.51 Hypocalcemia; E87.8 Other disorders of electrolyte and fluid balance, not elsewhere classified; E66.01 Morbid (severe) obesity due to excess calories; Z68.35 Body mass index [BMI] 35.0-35.9, adult; E78.5 Hyperlipidemia, unspecified; K20.90 Esophagitis, unspecified without bleeding; K59.09 Other constipation; R41.0 Disorientation, unspecified
CPT/HCPCS: 12345; 36415; 71045; 71275; 74018; 74177; 80048; 80053; 81001; 83605; 83690; 83735; 84100; 85025; 93005; 94640; 94799; 96375; 99282; C9113; J0610; J1170; J2060; J2405; J3475; J3490; Q9967

== ENCOUNTER → 2020-02-25 13:57 | Outpatient (BNVA) | payer MEDICAID, SELFPAY | PROVIDERS: PCP Physician Assistant; Visit Provider Orthopaedic Surgery | DX: M43.16 Spondylolisthesis, lumbar region (principal) | CPT/HCPCS: 72114 ==

== ENCOUNTER → 2020-04-14 11:43 | Outpatient (BNVA) | payer MEDICAID, SELFPAY | PROVIDERS: PCP Physician Assistant; Visit Provider Orthopaedic Surgery | DX: M43.16 Spondylolisthesis, lumbar region (principal) | CPT/HCPCS: 72110 ==

== ENCOUNTER 2020-05-19 09:38 | Outpatient (CLI) | payer MEDICAID, SELFPAY ==
--- NOTE | 2020-05-19 09:41 | NM_ITS ---
WS: [id number] NUCLEAR MEDICINE HIDA SCAN WITH GALLBLADDER EJECTION FRACTION HISTORY: RUQ PAIN/VOMITING COMPARISON: None available. TECHNIQUE: The patient was intravenously injected with 7.8 mCi of TC99m Mebrofenin. Immediate imaging over the right upper quadrant was followed by 5 minute image and additional images for a total of 60 minutes. Normal uptake of radiotracer throughout the liver. Activity identified in the gallbladder at 20 minutes and well distended by 60 minutes. Activity in the proximal small bowel was seen by 60 minutes. Good washout of the radiotracer from the liver by 60 minutes. The patient then drank 8 ounces of Ensure Plus. Ejection fraction at 60 minutes was 95%. Normal GB ej ection fraction is 35-75%. Post fatty meal symptoms: None. NM/NM hepatobiliary w phar* [id number] IMPRESSION: 1. Normal HIDA scan. 2. Normal gallbladder ejection fraction.
== END 2020-05-19 09:39 | disposition home or self-care (01) ==
LOC: NM 09:40
PROVIDERS: PCP Physician Assistant; Visit Provider Physician Assistant
DX: R10.11 Right upper quadrant pain (principal); R11.10 Vomiting, unspecified
CPT/HCPCS: 78227; A9537

== ENCOUNTER 2020-05-22 09:31 | Outpatient (CLI) | payer MEDICAID, SELFPAY ==
--- NOTE | 2020-05-22 09:36 | FL_ITS ---
WS: [id number] UPPER GI WITH AIR TECHNICAL: Double contrast upper GI with small bowel follow-through. FLUOROSCOPY TIME: 5.5 minutes CLINICAL INFORMATION: ABDOMINAL PAIN/VOMITING COMPARISON: None. FINDINGS: Swallowing: No evidence of aspiration penetration. Esophagus: Mild to moderate esophageal dysmotility. No high-grade stricture or obstructing mass. Evid ence of reflux esophagitis. Gastroesophageal reflux: Reflux is visualized in the upright and supine position to the upper thoraci c esophagus. Stomach: Prior history of esophageal hernia repair. Small esophageal hiatal hernia. Normal stomach em ptying. Thickening of the gastric rugae consistent with gastritis. Duodenum: Normal duodenal C-loop. SMALL BOWEL EXAMINATION CLINICAL INFORMATION: ABDOMINAL PAIN/VOMITING FINDINGS: Prior postoperative changes pedicle screw fixation in the lumbar spine L4-5 with interbody fusion. Initial abdomen radiograph: Normal bowel gas pattern. No abnormal calcification. Contrast material: 50/50 thin barium sulfate suspension. Transit time: 60 Minutes (normal = 30 - 240 minutes) Normal small bowel transit time. No obstructing small bowel stricture or adhesion. Normal jejunal and ileal bowel loops. The terminal ileum and ileocecal valve are normal. FLUOROSCOPY TIME: 5.5 minutes FL/FL upperGI air smallbowel ser* IMPRESSION: 1. Marked esophageal reflux to the upper thoracic esophagus visualized in the upright and supine position. 2. Evidence of reflux esophagitis and gastritis. Moderate esophageal dysmotili ty. 3. History of prior esophageal hernia repair x2. Small esophageal hiatal herni a. 4. Normal small bowel transit time 60 minutes. 5. No evidence of small bowel stricture or adhesion. 6. Normal ileocecal valve.
[2020-05-22] MEDS: diatrizoate meglumine 30 mL Sol PO (11:45)
== END 2020-05-22 09:32 | disposition home or self-care (01) ==
LOC: RAD 09:31
PROVIDERS: PCP Physician Assistant; Visit Provider Physician Assistant
DX: R10.9 Unspecified abdominal pain (principal); R11.10 Vomiting, unspecified; K21.9 Gastro-esophageal reflux disease without esophagitis
CPT/HCPCS: 74246; 74248

== ENCOUNTER 2020-10-02 18:55 | Inpatient (IN) | payer MEDICAID, SELFPAY ==
[2020-10-02 19:10] VITALS: BP 113/68; PULSE 102; RESP 14; O2SAT 93; BMI 27.5
--- NOTE | 2020-10-02 19:10 | ECG_ITS ---
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 Measurements Intervals [place] Rate: 87 P: 70 HI: 145 QRS: 73 QRSD: 104 T: 52 QT: 350 QTc: 423 Interpretive Statements SINUS RHYTHM Compared to ECG 10/03/2020 16:09:10 Ventricular premature complex(es) no longer present Electronically Signed On 12-27-2020 21:55:36 COLOR DEVELOPER by Roland Nowak M.D. [id number] f
--- NOTE | 2020-10-02 19:10 | PC.NURSE ---
poison control notified of overdose
--- NOTE | 2020-10-02 19:21 | PC.NURSE ---
pt also had 'a few beers earlier' she 'doesn't want to ' 'her and her daughter got into an argument and she just watned to go to sleep' 'she will never take pills like that again.
[2020-10-02 19:22] VITALS: BP 101/66; PULSE 105; RESP 14; O2SAT 96
[2020-10-02 19:38] LABS: Basophils # 0.1 10^3/uL (0.0-0.1); Basophils % 0.6 %; Eosinophils # 0.1 10^3/uL (0.0-0.8); Eosinophils % 0.9 %; Hematocrit 40.4 % (37.0-47.0); Hemoglobin 14.4 g/dL (11.5-15.3); Lymphocytes # 1.8 10^3/uL (0.8-4.8); Lymphocytes % 21.7 %; Mean Corpuscular HGB Conc 35.6 g/dL (30.0-36.0); Mean Corpuscular Hemoglobin 31.1 pg (28.0-34.0); Mean Corpuscular Volume 87.3 fl (81-99); Mean Platelet Volume 9.4 fL (7.4-10.4); Monocytes # 0.7 10^3/uL (0.2-0.9); Monocytes % 8.4 %; Neutrophils # 5.72 10^3/uL (1.8-7.7); Neutrophils % 67.7 %; Nucleated Red Blood Cells % 0 %; Platelet Count 366 10^3/cmm (130-400); Red Blood Count 4.63 10^6/uL (4.1-5.3); Red Cell Distribution Width 12.8 % (12.1-15.1); White Blood Count 8.5 10^3/uL (4.0-10.0)
[2020-10-02 19:47] LABS: Glucose Point of Care 87 mg/dL (70-110)
[2020-10-02 20:00] VITALS: BP 110/60; PULSE 104; RESP 16; O2SAT 95
[2020-10-02 20:02] LABS: Alanine Aminotransferase 21 U/L (0-33); Albumin Level 3.8 g/dL (3.5-5.2); Alkaline Phosphatase 76 IU/L (35-105); Aspartate Amino Transferase 23 U/L (0-32); Globulin 2.5 g/dL (1.3-4.6); Potassium 3.6 mmol/L (3.5-5.1); Total Bilirubin 0.3 mg/dL (0.15-1.2)
[2020-10-02 20:22] LABS: Amphetamines Screen Urine Negative (Negative); Barbiturates Screen Urine Negative (Negative); Benzodiazepines Screen Urine Negative (Negative); Cocaine Screen Urine Negative (Negative); Opiate Screen Urine Negative (Negative); PCP Screen Urine Negative (Negative); THC Screen Urine Negative (Negative)
[2020-10-02 20:31] LABS: Bilirubin Urine Neg (Negative); Blood Urine 3+ (Negative); Glucose Urine UA Norm (Normal); Ketones Urine Negative (Negative); Leukocyte Esterase Urine Negative (Negative); Nitrate Urine Negative (Negative); Protein Urine Neg (Negative); Urine Appearance Clear (CLEAR); Urine Color Straw (Yellow); Urobilinogen Urine Norm (Negative); pH Urine 5 (5-7)
[2020-10-02 20:32] LABS: Add Urine Microscopic? YES
[2020-10-02 20:50] LABS: Alcohol Level 197 mg/dL (0-10); Anion Gap 22.6 (5-19); Blood Urea Nitrogen 5 mg/dL (6-20); Calcium 7.7 mg/dL (8.5-10.5); Carbon Dioxide 16 mmol/L (22-29); Chloride 84 mmol/L (98-107); Glomerular Filtration Rate 164.5 mL/min (90-130); Glucose 122 mg/dL (65-115); Osmolality Calculated 247 mOsm/kg (285-295); Salicylate 0.5 mg/dL (3-10); Total Protein 6.3 g/dL (6.6-8.7)
[2020-10-02 20:51] LABS: Acetaminophen < 5.0 ug/mL (10-30); Sodium 119 mmol/L (136-145)
[2020-10-02 21:00] VITALS: BP 116/76; PULSE 96; RESP 18; O2SAT 94
[2020-10-02 21:16] LABS: RBC Urine 0-4 /hpf (0-2)
[2020-10-02 21:17] LABS: Add Urine Culture? No; Bacteria Urine TRACE /hpf; WBC Urine 0-4 /hpf (0-5)
[2020-10-02 22:00] VITALS: BP 92/56; PULSE 85; RESP 14; O2SAT 95
[2020-10-02] MEDS: sodium chloride 0.9% 1,000 ML 999 ML IV (22:12)
[2020-10-02 23:00] VITALS: BP 123/78; PULSE 87; RESP 16; O2SAT 92
--- NOTE | 2020-10-02 23:00 | P.HP_ITS ---
Providers/Chief Complaint Admitting Physician: Mala Diaz MD Primary Care Provider: Marianne Mirza Chief Complaint: OVERDOSE ON SEROQUEL History of Present Illness Dayanara Singleton is a 59 year old female with past medical history of anxiety and depression who was brought to the ER today by EMS after taking excess Seroquel medication. Reportedly patient took 7 tablets of 100 mg Seroquel each along with some alcohol after she had an argument with her daughter. States she was upset about this argument, was not trying to kill herself. Blood pressure upon admission was noted to be 92/56, patient was mildly dehydrated, saturating 94% on room air, EKG with sinus rhythm and nonspecific T wave abnormality. She received normal saline bolus after which systolic blood pressure has been ranging between 120s to 130s systolic. Psychiatry assessment remains pending. Review of Systems General: Reports: 10 or more systems reviewed and unremarkable except in HPI and below Const: Denies: fever(s), chills or body aches Eyes: Denies: change in vision, blurry vision or photophobia ENMT: Reports: hoarseness; Denies: throat pain, enlarged tonsils, odynophagia or nasal congestion Card: Denies: chest pain, palpitations, irregular heart rhythm, edema, swelling of feet/ankles, lightheadedness, pre-syncope, dyspnea on exertion or o rthopnea Resp: Denies: dyspnea, productive cough, non-productive cough, wheezing, stridor, pain on inspiration, change in phlegm color, hemoptysis or chest congestion GI: Denies: abdominal pain, nausea, vomiting, hematemesis, coffee ground emesis, dysphagia, heartburn, diarrhea, constipation, GI cramping, change in stool character, hematochezia or melena : Denies: flank pain, difficulty voiding, dysuria, urinary frequency, urinar y urgency, urinary hesitancy or hematuria Musc: Denies: neck pain, back pain, extremity pain, joint swelling, joint warmth or deformity Neuro: Denies: headache(s), numbness in extremities, weakness in extremities, sensory changes, difficulty walking, frequent falls, dizziness, vertigo, beh avioral changes, Slurred speech present or seizure-like activity Psych: Denies: anxiety, depression, suicidal ideation or homicidal ideation Endo: Denies: polyuria, polydipsia, tired all the time, cold intolerance or hot flashes [place]/Lymph: Denies: easy bruising or easy bleeding Medications/Allergies Home Medications Medication Instructions Recorded Confirmed Last Taken Type albuterol sulfate [ProAir HFA] 1 puff INHALATION QID PRN 02/26/19 10/02/20 Unknown History Wheelchair #1 ea 02/28/19 10/02/20 Unknown Rx quetiapine 100 mg tablet 100 mg PO BEDTIME 05/31/19 10/02/20 10/02/20 History pantoprazole [Protonix] 40 mg PO BIDWM 42 Days #42 tab 08/15/19 10/02/20 01/05/20 Rx sucralfate 1 gram tablet 1 gm PO Q6H PRN #120 tab 10/07/19 10/02/20 Unknown Rx atorvastatin 40 mg PO DAILY 12/16/19 10/02/20 10/02/20 History fluticasone propionate 1 spray INTRANASAL DAILY 12/16/19 10/02/20 Unknown History metformin 500 mg PO DAILY 12/16/19 10/02/20 10/02/20 History metoprolol succinate 100 mg PO DAILY 12/16/19 10/02/20 10/02/20 History hospital bed #1 ea NS 12/17/19 10/02/20 Unknown Rx ibuprofen 400 mg PO PRN 01/12/20 10/02/20 Unknown History cyclobenzaprine 10 mg tablet 10 mg PO TID #90 tab 04/14/20 10/02/20 Unknown Rx gabapentin 300 mg PO BEDTIME 10/02/20 10/02/20 Unknown History ofloxacin See Rx Instructions .ROUTE .COMPLEX 10/02/20 10/02/20 Unknown History Allergies Allergy/AdvReac Type Severity Reaction Status Date / Time meloxicam Allergy ADR-Abdominal Verified 04/14/20 11:45 Pain lorazepam AdvReac Intermediate ADR-Confusi Verified 04/14/20 11:45 on PFSH Acute PFSH: Medical History Anxiety Depression Diabetes Esophagitis History of colon polyps Hypertension Intervertebral disc disorder with radiculopathy of lumbosacral region Joint instability Lumbar stenosis with neurogenic claudication Pain due to internal orthopedic prosthetic devices, implants and grafts, initial encounter This was addressed with the revision total knee arthroplasty involving exchange of the tibial insert with synovectomy. Spondylisthesis Spondylolisthesis at L4-L5 level Surgical History H/O spinal fusion 01/05,, L4 laminectomy H/O tubal ligation History of total knee arthroplasty Right History of total right knee replacement Hx of colonoscopy with polypectomy (08/15/19) diverticulosis and polyps Hx of inguinal hernia repair Hx of umbilical hernia repair Family History Mother Cancer Lung Father CAD (coronary artery disease) Stroke FH: brain aneurysm Brother Cancer Denies family history of Anesthesia complication Bleeding disorder Social History Smoking and tobacco status: current every day smoker cigarettes Packs smoked per day: 1 Alcohol intake: current Lives independently: No Household members: none Housing: House Marital status: Legally service: No Current occupational status: disabled History of recent travel: No Vitals/I&O/Wt Last Vital Signs Pulse 85 10/02/20 22:00 Resp 14 10/02/20 22:00 BP 92/56 10/02/20 22:00 Pulse Ox 95 10/02/20 22:00 Weight last 48 hrs Weight 68.189 kg Physical Exam Narrative: EXAM NARRATIVE: General: No acute distress, AO x3 HEENT: PERRLA, pupils bilaterally equal and reactive, pallors not present Chest: Normal vesicular breath sounds, no added sounds, equal good air entry bilaterally CVS: S1-S2 regular, no murmurs, no tachycardia, no gallops, no rubs Abdomen: Soft, nontender, no organomegaly, bowel sounds present Neuro: No focal deficits, no facial deformity, AO x3, power 5/5 in all limbs Data : 10/03/20 04:03 10/03/20 04:03 A&P Assessment and plan (1) Drug overdose, intentional: Patient with Seroquel overdose, taken 7 tablets 100 mg each. Denies suicidal ideation, however overdose was intentional after argument with daughter. Psychiatry consult ordered from the ER. One-to-one sitter Monitor for any signs of serotonin syndrome. Currently patient is hemodyn amically stable. No acute changes on EKG. Status: Acute (2) Alcohol intoxication: Alcohol level 197 CIWa protocol for withdrawal Status: Acute (3) Hyponatremia: Na 119, patient appears clinically dehydrated Received NS bolus for hypotension Recheck level with am labs no neurological deficits at this time Status: Acute Attestations Medical Necessity Statement*: >2midnight anticipated for monitoring for seroquel overdose, psychiatry assessment Coding Level of Care Code Acute Swedish Masseuse for [facility] Fwd Diagnoses Drug overdose, intentional T50.902A Alcohol intoxication F10.929 Hyponatremia E87.1
[2020-10-02] MEDS: sodium chloride 0.9% 1,000 ML 100 ML IV (23:28)
--- NOTE | 2020-10-02 23:54 | W.ED.OVERDOS ---
HPI - Overdose General: Chief Complaint: Overdose Stated Complaint: OVERDOSE ON SEROQUEL Time Seen by Provider: 10/02/20 19:10 Source: patient, family (daughter) and EMS Mode of arrival: EMS History of Present Illness: HPI Narrative: 59-year-old female patient who was brought into the emergency department via EMS after she had apparently taken an overdose of Seroquel tablets. She had taken seven 100 mg tablets of Seroquel. Patient states that this was not a suicide attempt and she took it because she was trying to sleep after having an argument with her daughter. She had taking a few beers before she took the medication. She was very adamant that this was not a suicide attempt. She denies any complaints at this time. She took the medication about 3 PM this afternoon Onset (ago): hour(s) (4) Timing confirmed by: family member Review of Systems General: Reports: 10 or more systems reviewed and unremarkable except in HPI and below PFSH ED PFSH: Medical History Anxiety Depression Diabetes Esophagitis History of colon polyps Hypertension Intervertebral disc disorder with radiculopathy of lumbosacral region Joint instability Lumbar stenosis with neurogenic claudication Pain due to internal orthopedic prosthetic devices, implants and grafts, initial encounter This was addressed with the revision total knee arthroplasty involving exchange of the tibial insert with synovectomy. Spondylisthesis Spondylolisthesis at L4-L5 level Surgical History H/O spinal fusion 01/05,, L4 laminectomy H/O tubal ligation History of total knee arthroplasty Right History of total right knee replacement Hx of colonoscopy with polypectomy (08/15/19) diverticulosis and polyps Hx of inguinal hernia repair Hx of umbilical hernia repair Family History Mother Cancer Lung Father CAD (coronary artery disease) Stroke FH: brain aneurysm Brother Cancer Denies family history of Anesthesia complication Bleeding disorder Social History Smoking and tobacco status: current every day smoker cigarettes Packs smoked per day: 1 Alcohol intake: current Lives independently: No Household members: none Housing: House Marital status: Legally service: No Current occupational status: disabled History of recent travel: No Physical Exam Const: COMMON NORMALS: no acute distress, average body habitus, patient oriented x3, no limitations, healthy appearing, alert and well nourished GENERAL APPEARANCE: odor of alcohol detected HENMT: COMMON NORMALS: normocephalic, atraumatic and moist oral mucous membranes HEAD & SCALP: normocephalic and atraumatic Eye: COMMON NORMALS: Equal, round and reactive pupils present, EOMs intact bilaterally, conjunctivae normal and no scleral icterus CONJUNCTIVA: Yes conjunctivae normal PUPIL: Yes Equal, round and reactive pupils present Neck/C-Spine: COMMON NORMALS: full ROM, supple, no meningeal signs, no JVD and No carotid bruits Chest: COMMONS NORMALS: normal inspection of the chest and normal palpation of entire chest wall Resp: COMMON NORMALS: normal respiratory effort, No retractions, No use of accessory muscles, clear to auscultation bilaterally and percussion normal AUSCULTATION: clear to auscultation bilaterally PERCUSSION: percussion normal Cardio: COMMON NORMALS: no JVD, regular rate, regular rhythm, S1 normal heart sound present, S2 normal heart sound present, No gallops present (Cardio), No clicks present (Cardio), No murmurs present (Cardio), No rub (Cardio) and Peripheral pulses 2+ throughout RATE: regular rate RHYTHM: regular rhythm HEART SOUNDS: S1 normal heart sound present and S2 normal heart sound present PERIPHERAL PULSES: Peripheral pulses 2+ throughout GI: COMMON NORMALS: Normal to inspection, nondistended, normoactive bowel sounds present, Soft to palpation, non-tender, No hepatosplenomegaly present, no masses and no bruits PALPATION: Yes Soft to palpation and Yes No hepatosplenomegaly present : COMMON NORMALS: Yes no CVA tenderness BLADDER/KIDNEY EXAM: Yes no CVA tenderness Back/Pelvis: COMMON NORMALS: no CVA tenderness Extremity: COMMON NORMALS: normal to inspection, full ROM, capillary refill normal, no calf tenderness and no pedal edema Neuro: COMMON NORMALS: patient oriented x3 SENSORIUM/ORIENTATION: Yes alert MENINGEAL SIGNS: Yes no meningeal signs Skin: COMMON NORMALS: no rashes or lesions noted, no wounds, turgor normal, no jaundice, no petechiae and no mottling GENERAL SKIN EXAM: no rashes or lesions noted and turgor normal Course Consultations: Consultation #1: Discussed the patient with Dr. iDaz, hospitalist and she kindly accepted the patient to her service. Time: 22:19 Consultation #2: Discussed the patient with Dr. Oquendo, psychiatrist and he will evaluate the patient while she is in the hospital. Time: 22:30 Vital Signs: Vital signs: Vital Signs Pulse Rate 87 10/02/20 23:00 Respiratory Rate 16 10/02/20 23:00 Blood Pressure 123/78 10/02/20 23:00 Pulse Oximetry 92 10/02/20 23:00 MDM - Overdose MDM Narrative: Medical decision making narrative: 59-year-old female patient who overdosed on her Seroquel earlier today. After consultation with poison control it was determined that she was out of the window for dangerous side effect of her medication. After discussing with the patient and her daughter, her daughter admitted that the patient is an alcoholic and drinks every day. In the emergency department her evaluation showed that she has dangerously low sodium. Unsure whether this is acute or chronic but considering that she is an alcoholic and she possibly takes more than is prescribed of her antipsychotic this is likely chronic. She is clinically stable and will have a gentle correction of her hyponatremia with normal saline. EKG was unremarkable in the emergency department. Medical Records: Attestation: I reviewed the patient's medical records. Lab Data: Attestation: I reviewed the patient's lab results. Labs: Lab Results 10/02/20 10/02/20 10/02/20 Range/Units 18:42 18:42 19:44 WBC 8.5 (4.0-10.0) 10^3/ uL RBC 4.63 (4.1-5.3) 10^6/u L Hgb 14.4 (11.5-15.3) g/dL Hct 40.4 (37.0-47.0) % MCV 87.3 (81-99) fl MCH 31.1 (28.0-34.0) pg MCHC 35.6 (30.0-36.0) g/dL RDW 12.8 (12.1-15.1) % Plt Count 366 (130-400) 10^3/c mm MPV 9.4 (7.4-10.4) fL Neut % (Auto) 67.7 % Lymph % (Auto) 21.7 % [place] % (Auto) 8.4 % Eos % (Auto) 0.9 % Baso % (Auto) 0.6 % Neut # (Auto) 5.72 (1.8-7.7) 10^3/u L Lymph # (Auto) 1.8 (0.8-4.8) 10^3/u L [place] # (Auto) 0.7 (0.2-0.9) 10^3/u L Eos # (Auto) 0.1 (0.0-0.8) 10^3/u L Baso # (Auto) 0.1 (0.0-0.1) 10^3/u L Nucleated RBC % (a uto) 0 % Nucleated RBCs # 0.0 /100WBC Sodium 119 L* (136-145) mmol/L Potassium 3.6 (3.5-5.1) mmol/L Chloride 84 L (98-107) mmol/L Carbon Dioxide 16 L (22-29) mmol/L Anion Gap 22.6 H (5-19) BUN 5 L (6-20) mg/dL Creatinine 0.4 L (0.5-0.9) mg/dL GFR Calculation 164.5 H (90-130) mL/min Glucose 122 H (65-115) mg/dL POC Glucose 87 (70-110) mg/dL Calculated Osmolal ity 247 L (285-295) mOsm/k g Calcium 7.7 L (8.5-10.5) mg/dL Total Bilirubin 0.3 (0.15-1.2) mg/dL AST 23 (0-32) U/L ALT 21 (0-33) U/L Alkaline Phosphata se 76 (35-105) IU/L Total Protein 6.3 L (6.6-8.7) g/dL Albumin 3.8 (3.5-5.2) g/dL Globulin 2.5 (1.3-4.6) g/dL Urine Color (Yellow) Urine Appearance (CLEAR) Urine pH (5-7) Ur Specific Gravit y (1.005-1.030) Urine Protein (Negative) Urine Glucose (UA) (Normal) Urine Ketones (Negative) Urine Blood (Negative) Urine Nitrate (Negative) Urine Bilirubin (Negative) Urine Urobilinogen (Negative) mg/dL Ur Leukocyte Danya ase (Negative) Urine RBC (0-2) /hpf Urine WBC (0-5) /hpf Ur Squamous Epith Cells (0-5) /hpf Amorphous Sediment Urine Bacteria (NONE) /hpf Salicylates 0.5 L (3-10) mg/dL Urine Opiates Scre en (Negative) ng/mL Acetaminophen < 5.0 L (10-30) ug/mL Ur Barbiturates Sc reen (Negative) ng/mL Ur Phencyclidine S crn (Negative) ng/mL Ur Amphetamines Sc reen (Negative) ng/mL U Benzodiazepines Scrn (Negative) ng/mL Urine Cocaine Scre en (Negative) ng/mL U Marijuana (THC) Screen (Negative) ng/mL Ethyl Alcohol 197 H (0-10) mg/dL 10/02/20 10/02/20 Range/Units 20:02 20:02 WBC (4.0-10.0) 10^3/ uL RBC (4.1-5.3) 10^6/u L Hgb (11.5-15.3) g/dL Hct (37.0-47.0) % MCV (81-99) fl MCH (28.0-34.0) pg MCHC (30.0-36.0) g/dL RDW (12.1-15.1) % Plt Count (130-400) 10^3/c mm MPV (7.4-10.4) fL Neut % (Auto) % Lymph % (Auto) % [place] % (Auto) % Eos % (Auto) % Baso % (Auto) % Neut # (Auto) (1.8-7.7) 10^3/u L Lymph # (Auto) (0.8-4.8) 10^3/u L [place] # (Auto) (0.2-0.9) 10^3/u L Eos # (Auto) (0.0-0.8) 10^3/u L Baso # (Auto) (0.0-0.1) 10^3/u L Nucleated RBC % (a uto) % Nucleated RBCs # /100WBC Sodium (136-145) mmol/L Potassium (3.5-5.1) mmol/L Chloride (98-107) mmol/L Carbon Dioxide (22-29) mmol/L Anion Gap (5-19) BUN (6-20) mg/dL Creatinine (0.5-0.9) mg/dL GFR Calculation (90-130) mL/min Glucose (65-115) mg/dL POC Glucose (70-110) mg/dL Calculated Osmolal ity (285-295) mOsm/k g Calcium (8.5-10.5) mg/dL Total Bilirubin (0.15-1.2) mg/dL AST (0-32) U/L ALT (0-33) U/L Alkaline Phosphata se (35-105) IU/L Total Protein (6.6-8.7) g/dL Albumin (3.5-5.2) g/dL Globulin (1.3-4.6) g/dL Urine Color Straw (Yellow) Urine Appearance Clear (CLEAR) Urine pH 5 (5-7) Ur Specific Gravit y 1.010 (1.005-1.030) Urine Protein Neg (Negative) Urine Glucose (UA) Norm (Normal) Urine Ketones Negative (Negative) Urine Blood 3+ H (Negative) Urine Nitrate Negative (Negative) Urine Bilirubin Neg (Negative) Urine Urobilinogen Norm (Negative) mg/dL Ur Leukocyte Danya ase Negative (Negative) Urine RBC 0-4 H (0-2) /hpf Urine WBC 0-4 H (0-5) /hpf Ur Squamous Epith Cells 5-10 H (0-5) /hpf Amorphous Sediment Not Reportable Urine Bacteria Trace (NONE) /hpf Salicylates (3-10) mg/dL Urine Opiates Scre en Negative (Negative) ng/mL Acetaminophen (10-30) ug/mL Ur Barbiturates Sc reen Negative (Negative) ng/mL Ur Phencyclidine S crn Negative (Negative) ng/mL Ur Amphetamines Sc reen Negative (Negative) ng/mL U Benzodiazepines Scrn Negative (Negative) ng/mL Urine Cocaine Scre en Negative (Negative) ng/mL U Marijuana (THC) Screen Negative (Negative) ng/mL Ethyl Alcohol (0-10) mg/dL EKG Data^: EKG 1: Attestation: I personally reviewed and interpreted this EKG as follows: EKG interpretation date: 10/02/20 Prior EKG tracings: not available for review Interpretation: Sinus rhythm. Heart rate 96 bpm. Normal axis. No ST changes. Critical Care Time Critical Care Time: Critical Care Time: Yes Total Critical Care Time: 30 Attestation: This case had a high probability of a clinically significant, sudden, or life threatening deterioration of this patient's condition which required my full and direct attention, intervention and personal management. Discharge Plan Discharge Patient Disposition: Admitted As Inpatient Clinical Impression: Hyponatremia, Hypoxia Hypotension Qualifiers: Hypotension type: unspecified hypotension type Qualified Code(s): I95.9 - Hypotension, unspecified Condition: Stable Coding Level of Care Code ED Vessel Master for Adan Guillen
[2020-10-03] VITALS: BP 138/95; PULSE 96; RESP 17; O2SAT 94
--- NOTE | 2020-10-03 00:16 | PC.NURSE ---
took over care of pt from Lola MARINO at this time
[2020-10-03] MEDS: enoxaparin 40 mg/0.4 mL Syringe SUBCUT (00:33)
--- NOTE | 2020-10-03 01:01 | PC.NURSE ---
seizure pads on at this time
--- NOTE | 2020-10-03 03:18 | PC.NURSE ---
pt sleeping at this time.
[2020-10-03 04:14] LABS: Basophils % 0.5 %; Eosinophils # 0.2 10^3/uL (0.0-0.8); Eosinophils % 2.1 %; Hematocrit 39.1 % (37.0-47.0); Hemoglobin 13.9 g/dL (11.5-15.3); Lymphocytes # 2.6 10^3/uL (0.8-4.8); Lymphocytes % 30.1 %; Mean Corpuscular HGB Conc 35.5 g/dL (30.0-36.0); Mean Corpuscular Volume 87.3 fl (81-99); Mean Platelet Volume 9.1 fL (7.4-10.4); Monocytes # 0.8 10^3/uL (0.2-0.9); Monocytes % 9.6 %; Neutrophils # 4.88 10^3/uL (1.8-7.7); Neutrophils % 57.3 %; Nucleated Red Blood Cells % 0 %; Platelet Count 347 10^3/cmm (130-400); Red Blood Count 4.48 10^6/uL (4.1-5.3); White Blood Count 8.5 10^3/uL (4.0-10.0)
[2020-10-03 05:00] LABS: Cortisol Random 14.22 ug/dL (2.47-19.5)
[2020-10-03 05:08] LABS: Alanine Aminotransferase 19 U/L (0-33); Albumin Level 3.5 g/dL (3.5-5.2); Alkaline Phosphatase 73 IU/L (35-105); Anion Gap 12.7 (5-19); Aspartate Amino Transferase 28 U/L (0-32); Blood Urea Nitrogen 4 mg/dL (6-20); Calcium 8.2 mg/dL (8.5-10.5); Carbon Dioxide 23 mmol/L (22-29); Chloride 99 mmol/L (98-107); Globulin 2.2 g/dL (1.3-4.6); Glomerular Filtration Rate 164.5 mL/min (90-130); Glucose 134 mg/dL (65-115); Osmolality Calculated 271 mOsm/kg (285-295); Potassium 3.7 mmol/L (3.5-5.1); Sodium 131 mmol/L (136-145); Thyroid Stimulating Hormone 3.72 uIU/mL (0.27-4.20); Total Bilirubin 0.4 mg/dL (0.15-1.2); Total Protein 5.7 g/dL (6.6-8.7)
--- NOTE | 2020-10-03 07:46 | PC.NURSE ---
pt has not had 1:1 sitter while in ED. Pt is not suicidal nor homicidal. accidental overdose
[2020-10-03 08:44] LABS: Glucose Point of Care 122 mg/dL (70-110)
[2020-10-03] MEDS: multivitamin therapeutic Tablet 1 TAB PO (09:33)
[2020-10-03] MEDS: thiamine 100 mg Tablet PO (09:33)
[2020-10-03] MEDS: pantoprazole DR 40 mg Tablet PO (09:33)
[2020-10-03] MEDS: folic acid 1 mg Tablet PO (09:33)
--- NOTE | 2020-10-03 11:24 | ECG_ITS ---
[facility] Test Date: 2020-10-03 Pat Name: Dayanara Singleton Department: Room: 250 Gender: Female Registration Scheduling Specialist: : [id number] Requested By: Jose Valenzuela Order Number: [id number] Colleen MD: Jethro De Jesus M.D. Measurements Intervals [place] Rate: 93 P: 33 IN: 183 QRS: 48 QRSD: 99 T: 51 QT: 339 QTc: 423 Interpretive Statements SINUS RHYTHM INCOMPLETE RIGHT BUNDLE BRANCH BLOCK [90+ ms QRS DURATION, TERMINAL R IN V1/V2, 40+ ms S IN I/aVL/V4/V5/V6] Compared to ECG 01/12/2020 17:01:28 Incomplete right bundle-branch block now present T-wave abnormality no longer present Electronically Signed On 10-04-2020 16:24:48 CDT by Jethro De Jesus M.D. [id number]
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
--- NOTE | 2020-10-03 13:24 | ECG_ITS ---
[facility] Test Date: 2020-10-03 Pat Name: Dayanara Singleton Department: Room: 250 Gender: Female Pin Sticker: : 1960 Requested By: Jose Valenzuela Order Number: [id number] Colleen MD: Jethro De Jesus M.D. Measurements Intervals [place] Rate: 92 P: 53 VT: 188 QRS: 64 QRSD: 90 T: 61 QT: 355 QTc: 441 Interpretive Statements SINUS RHYTHM WITH OCCASIONAL VENTRICULAR PREMATURE COMPLEXES POSSIBLE RIGHT VENTRICULAR CONDUCTION DELAY [RSR (QR) IN V1/V2] Compared to ECG 01/12/2020 17:01:28 Ventricular premature complex(es) now present T-wave abnormality no longer present Electronically Signed On 10-04-2020 16:33:13 CDT by Jethro De Jesus M.D. [id number]
[2020-10-03 14:51] LABS: Troponin(5th) Baseline 9 ng/L (0-10)
[2020-10-03 16:53] LABS: Glucose Point of Care 116 mg/dL (70-110)
[2020-10-03 17:04] LABS: Troponin 5 2HR 11.02 ng/L (0-10); Troponin 5 2HR Delta 2.02 ABS# (0-10)
[2020-10-03 20:34] LABS: Troponin 5 6HR 9.59 ng/L (0-10); Troponin 5 6HR Delta 0.59 ng/L (0-12)
[2020-10-03 20:44] LABS: Glucose Point of Care 143 mg/dL (70-110)
[2020-10-03 23:20] VITALS: BP 148/85; PULSE 88; RESP 17; TEMP 36.8; O2SAT 94
[2020-10-04] MEDS: enoxaparin 40 mg/0.4 mL Syringe SUBCUT (00:37)
[2020-10-04 03:23] VITALS: BP 157/94; PULSE 82; RESP 17; TEMP 36.6; O2SAT 92
[2020-10-04 06:27] LABS: Basophils # 0.1 10^3/uL (0.0-0.1); Basophils % 0.9 %; Eosinophils # 0.3 10^3/uL (0.0-0.8); Eosinophils % 3.8 %; Hematocrit 44.4 % (37.0-47.0); Hemoglobin 15.2 g/dL (11.5-15.3); Lymphocytes # 2.1 10^3/uL (0.8-4.8); Lymphocytes % 29.6 %; Mean Corpuscular HGB Conc 34.2 g/dL (30.0-36.0); Mean Corpuscular Hemoglobin 30.7 pg (28.0-34.0); Mean Corpuscular Volume 89.7 fl (81-99); Mean Platelet Volume 9.7 fL (7.4-10.4); Monocytes # 0.8 10^3/uL (0.2-0.9); Neutrophils # 3.81 10^3/uL (1.8-7.7); Neutrophils % 54.3 %; Nucleated Red Blood Cells % 0 %; Platelet Count 347 10^3/cmm (130-400); Red Blood Count 4.95 10^6/uL (4.1-5.3); Red Cell Distribution Width 13.3 % (12.1-15.1)
[2020-10-04 07:03] LABS: Alanine Aminotransferase 17 U/L (0-33); Albumin Level 3.7 g/dL (3.5-5.2); Alkaline Phosphatase 75 IU/L (35-105); Anion Gap 14.8 (5-19); Aspartate Amino Transferase 23 U/L (0-32); Blood Urea Nitrogen 8 mg/dL (6-20); Calcium 8.7 mg/dL (8.5-10.5); Carbon Dioxide 23 mmol/L (22-29); Chloride 97 mmol/L (98-107); Globulin 2.7 g/dL (1.3-4.6); Glomerular Filtration Rate 164.5 mL/min (90-130); Glucose 114 mg/dL (65-115); Magnesium 1.6 mg/dL (1.7-2.3); Osmolality Calculated 271 mOsm/kg (285-295); Potassium 3.8 mmol/L (3.5-5.1); Sodium 131 mmol/L (136-145); Total Bilirubin 0.4 mg/dL (0.15-1.2); Total Protein 6.4 g/dL (6.6-8.7)
[2020-10-04 07:06] LABS: Glucose Point of Care 128 mg/dL (70-110)
[2020-10-04 07:08] VITALS: BP 150/94; PULSE 96; RESP 17; TEMP 36.6; O2SAT 95
[2020-10-04] MEDS: thiamine 100 mg Tablet PO (09:07)
[2020-10-04] MEDS: multivitamin therapeutic Tablet 1 TAB PO (09:07)
[2020-10-04] MEDS: atorvastatin 40 mg Tablet PO (09:07)
[2020-10-04] MEDS: folic acid 1 mg Tablet PO (09:08)
[2020-10-04] MEDS: metoprolol succinate ER (24 HR) 100 mg Tablet PO (09:08)
[2020-10-04] MEDS: pantoprazole DR 40 mg Tablet PO (09:08)
[2020-10-04 11:01] LABS: Glucose Point of Care 126 mg/dL (70-110)
[2020-10-04 12:00] VITALS: BP 170/101; PULSE 87; RESP 16; TEMP 37.1; O2SAT 94
--- NOTE | 2020-10-04 13:28 | P.DS_ITS ---
Discharge Providers Date of Admission: 10/03/20 00:28 Date of Discharge: October 04, 2020 Attending Provider at Admission: Mala Diaz MD Attending Provider at Discharge: Jose Valenzuela MD Primary Care Provider: Marianne Mirza Diagnoses at Discharge Discharge Diagnosis (1) Alcohol intoxication: Status: Acute (2) Drug overdose, intentional: Status: Acute (3) Depression: Status: Acute (4) Marital/partner relational problem: Status: Acute (5) Parent-child relational problem: Status: Acute (6) Hyponatremia: Status: Acute (7) Hypotension: Status: Acute Qualifiers: Hypotension type: unspecified hypotension type Qualified Code(s): I95.9 - Hypotension, unspecified (8) Hypoxia: Status: Acute (9) Diabetes: Status: Acute (10) Spondylolisthesis at L4-L5 level: Status: Acute (11) Displacement of lumbar disc with radiculopathy: Status: Chronic (12) Spondylolisthesis, lumbar region: Status: Acute (13) Joint instability: Status: Chronic (14) Spondylisthesis: Status: Chronic (15) Lumbar stenosis with neurogenic claudication: Status: Chronic (16) Anxiety: Status: Acute (17) History of total knee arthroplasty: Status: Acute Permanent problem details: Right Qualifiers: Laterality: right Qualified Code(s): Z96.651 - Presence of right artificial knee joint Reason for Visit Reason for Visit: OVERDOSE ON SEROQUEL Hospital Course Hospital Course This is a 59-year-old female with a past medical history anxiety and depression, hyperlipidemia, non insulin-dependent type 2 diabetes mellitus, hyperlipidemia, who presents to [facility] due to taking 7 tablets of Seroquel, and alcohol intoxication Patient was admitted to [facility] for intentional Seroquel overdose, she had no significant EKG changes, no significant elementary events, neurologically her cognition, alert oriented x3, answering all questions appropriately, following all commands before discharge. Patient was advised to use Seroquel as prescribed, and follow-up with primary care provider in less than a week For alcohol intoxication, was monitored for alcohol withdrawal, no significant evidence, discharge home with instructions to monitor for alcohol withdrawal symptoms until, emergency room. In addition patient was seen by psychiatry for substance abuse disorder. Followed with [facility] as outpatient. For depression anxiety, patient had social issues with her daughter, denies suicidal ideation, denied homicidal ideation, psychiatry was consulted, patient will be discharged home with close follow-up with [facility] as outpatient. Patient was also found to be hyponatremic during hospitalization, received fluid therapy, but hyponatremia persist, serum sodium on discharge 131, likely secondary to alcohol abuse, however there could be a component related to Flexeril, Protonix, Seroquel. Patient was advised to recheck serum sodium level with primary care provider next office visit, if she were to have headache, blurry vision, lightheadedness and go to emergency room. Physical Exam Const: COMMON NORMALS: no acute distress and patient oriented x3 Neck/C-Spine: COMMON NORMALS: no JVD Resp: COMMON NORMALS: normal respiratory effort, No retractions, No use of accessory muscles and clear to auscultation bilaterally AUSCULTATION: clear to auscultation bilaterally Cardio: COMMON NORMALS: no JVD, regular rate, regular rhythm, S1 normal heart sound present and S2 normal heart sound present RATE: regular rate RHYTHM: regular rhythm HEART SOUNDS: S1 normal heart sound present and S2 normal heart sound present GI: COMMON NORMALS: Normal to inspection, nondistended, normoactive bowel sounds present, Soft to palpation, non-tender and No hepatosplenomegaly present PALPATION: Yes Soft to palpation and Yes No hepatosplenomegaly present Extremity: COMMON NORMALS: no pedal edema Neuro: COMMON NORMALS: patient oriented x3 Psych: COMMON NORMALS: mental status grossly normal Discharge Data Data Completed and Pending: Pending at discharge Category Date Time Status Complete Blood Co unt w/Auto AM LABS Lab 10/05/20 04:00 Ordered Complete Blood Co unt w/Auto AM LABS Lab 10/06/20 04:00 Ordered Comprehensive Met abolic Panel AM LA BS Lab 10/05/20 04:00 Ordered Comprehensive Met abolic Panel AM LA BS Lab 10/06/20 04:00 Ordered Magnesium AM LABS Lab 10/05/20 04:00 Ordered Magnesium AM LABS Lab 10/06/20 04:00 Ordered Phosphorus AM LAB S Lab 10/05/20 04:00 Ordered Phosphorus AM LAB S Lab 10/06/20 04:00 Ordered Labs from last 24 hours 10/04/20 10/04/20 10/04/20 10:52 06:42 04:43 WBC RBC Hgb Hct MCV MCH MCHC RDW Plt Count MPV Neut % (Auto) Lymph % (Auto) [place] % (Auto) Eos % (Auto) Baso % (Auto) Neut # (Auto) Lymph # (Auto) [place] # (Auto) Eos # (Auto) Baso # (Auto) Nucleated RBC % (a uto) Nucleated RBCs # Sodium 131 L Potassium 3.8 Chloride 97 L Carbon Dioxide 23 Anion Gap 14.8 BUN 8 Creatinine 0.4 L GFR Calculation 164.5 H Glucose 114 POC Glucose 126 H 128 H Calculated Osmolal ity 271 L Calcium 8.7 Phosphorus 4.0 Magnesium 1.6 L Total Bilirubin 0.4 AST 23 ALT 17 Alkaline Phosphata se 75 Troponin T Baselin e Troponin T 120 Min resighini Delta Troponin T Troponin T Hi Sens 6Hr Troponin T Hi Sens 6Hr Delta Total Protein 6.4 L Albumin 3.7 Globulin 2.7 10/04/20 10/03/20 10/03/20 04:43 20:32 20:00 WBC 7.0 RBC 4.95 Hgb 15.2 Hct 44.4 MCV 89.7 MCH 30.7 MCHC 34.2 RDW 13.3 Plt Count 347 MPV 9.7 Neut % (Auto) 54.3 Lymph % (Auto) 29.6 [place] % (Auto) 11.0 Eos % (Auto) 3.8 Baso % (Auto) 0.9 Neut # (Auto) 3.81 Lymph # (Auto) 2.1 [place] # (Auto) 0.8 Eos # (Auto) 0.3 Baso # (Auto) 0.1 Nucleated RBC % (a uto) 0 Nucleated RBCs # 0.0 Sodium Potassium Chloride Carbon Dioxide Anion Gap BUN Creatinine GFR Calculation Glucose POC Glucose 143 H Calculated Osmolal ity Calcium Phosphorus Magnesium Total Bilirubin AST ALT Alkaline Phosphata se Troponin T Baselin e Troponin T 120 Min resighini Delta Troponin T Troponin T Hi Sens 6Hr 9.59 Troponin T Hi Sens 6Hr Delta 0.59 Total Protein Albumin Globulin 10/03/20 10/03/20 10/03/20 16:44 16:34 14:10 WBC RBC Hgb Hct MCV MCH MCHC RDW Plt Count MPV Neut % (Auto) Lymph % (Auto) [place] % (Auto) Eos % (Auto) Baso % (Auto) Neut # (Auto) Lymph # (Auto) [place] # (Auto) Eos # (Auto) Baso # (Auto) Nucleated RBC % (a uto) Nucleated RBCs # Sodium Potassium Chloride Carbon Dioxide Anion Gap BUN Creatinine GFR Calculation Glucose POC Glucose 116 H Calculated Osmolal ity Calcium Phosphorus Magnesium Total Bilirubin AST ALT Alkaline Phosphata se Troponin T Baselin e 9 Troponin T 120 Min resighini 11.02 H Delta Troponin T 2.02 Troponin T Hi Sens 6Hr Troponin T Hi Sens 6Hr Delta Total Protein Albumin Globulin Vitals: Last Vital Signs Temp 98.7 F 10/04/20 12:00 Pulse 87 10/04/20 12:00 Resp 16 10/04/20 12:00 BP 170/101 10/04/20 12:00 Pulse Ox 94 10/04/20 12:00 Discharge Plan Discharge Patient Disposition: Home Condition: Stable Prescriptions: New folic acid 1 mg Tablet 1 mg PO DAILY 30 Days Qty: 30 RF: 0 Vitamin B-1 (mononitrate) 100 mg Tablet 100 mg PO DAILY 30 Days Qty: 30 RF: 0 Thera 400 mcg Tablet 1 tab PO DAILY 30 Days Qty: 30 RF: 0 Norvasc 10 mg tablet 10 mg PO DAILY 30 Days Qty: 30 RF: 0 Continued quetiapine 100 mg tablet 100 mg PO BEDTIME RF: 0 cyclobenzaprine 10 mg tablet 10 mg PO TID Qty: 90 RF: 0 (DME) Wheelchair Qty: 1 RF: 0 sucralfate [Carafate] 1 gram tablet 1 gm PO Q6H PRN (Reason: stomach upset) Qty: 120 RF: 1 (DME) hospital bed See Rx Instructions .Route .MEDSUPPLY Qty: 1 RF: 0 ofloxacin 0.3 % drops See Rx Instructions .ROUTE .COMPLEX RF: 0 gabapentin 300 mg capsule 300 mg PO BEDTIME RF: 0 albuterol sulfate [ProAir HFA] 90 mcg/actuation HFA aerosol inhaler 1 puff INHALATION QID PRN (Reason: Shortness Of Breath) RF: 0 atorvastatin 40 mg Tablet 40 mg PO DAILY RF: 0 metformin 500 mg Tablet 500 mg PO DAILY RF: 0 metoprolol succinate 100 mg Tablet Extended Release 24 Hr 100 mg PO DAILY RF: 0 fluticasone propionate 50 mcg/actuation [place],Suspension 1 spray INTRANASAL DAILY RF: 0 ibuprofen 200 mg Tablet 400 mg PO PRN RF: 0 Changed Protonix 40 mg tablet,delayed release (DR/EC) 40 mg PO BIDWM PRN (Reason: Abdominal Discomfort) 42 Days Qty: 42 RF: 3 Discharge Orders: Discharge Order (Routine); Ordered 10/04/20 Ordered By: Jose Valenzuela Referrals: Marianne Mirza PA [Primary Care Provider] - 1-3 days (Please call Monday to schedule a follow up appointment) [facility] [place], [Staff Physician] - 1 week (Please call Monday to schedule a follow up appointment. ) Discharge Diet: Cardiac Discharge Activity: Resume usual activity Patient Instructions: Alcohol Abuse, Thiamine (Vitamin B-1) (By mouth), Folic Acid (By mouth), Amlodipine (By mouth), Medication Safety, Opioid Safety Activity Restrictions/Additional Instructions: -Recheck sodium levels in 1 to 3 days, follow-up with primary care -Please abstain from drinking alcohol -If you have signs of alcohol withdrawal go to emergency room -Follow-up with [facility] -Please do not use more Seroquel than is prescribed Discharge Attestations Time Spent in Discharge Care*: greater than 30 min Status at Discharge: Cognitive status at discharge: cognitively intact , Behavioral status at discharge: cooperative , Quality Metrics Clinical Quality Measures During this hospital stay, did patient experience: None Coding Level of Care Code Acute [facility] FW DC note Diagnoses Alcohol intoxication F10.929 Drug overdose, intentional T50.902A Depression F32.9 Marital/partner relational problem Z63.0 Parent-child relational problem Z62.820 Hyponatremia E87.1 Hypotension I95.9 Hypotension type: unspecified hypotension type Hypoxia R09.02 Diabetes E11.9 Spondylolisthesis at L4-L5 level M43.16 Displacement of lumbar disc with radiculopathy M51.16 Spondylolisthesis, lumbar region M43.16 Joint instability M25.30 Spondylisthesis M43.10 Lumbar stenosis with neurogenic claudication M48.062 Anxiety F41.9 History of total knee arthroplasty Z96.651 Laterality: right
[2020-10-04 14:22] VITALS: BP 170/101; PULSE 87; RESP 16; TEMP 37.1; O2SAT 94
[2020-10-04 14:23] VITALS: BP 170/101; PULSE 87; RESP 16; TEMP 37.1; O2SAT 94
--- NOTE | 2020-10-05 16:39 | PC.RESP ---
SMOKING CESSATION INFORMATION SENT TO PATIENT.
--- NOTE | 2020-10-07 10:59 | PC.SOCIAL ---
follow up discharge call made without success, message left.
== END 2020-10-04 14:23 | disposition home or self-care (01) | DRG 918 ==
LOC: ER 10-03 00:27 → ER IP 10-03 07:35 → ICU 10-03 07:49 → MEDSURG 10-03 10:48
PROVIDERS: Admitting Provider Student in an Organized Health Care Education/Training Program; Emergency Provider Family Medicine; PCP Physician Assistant; Visit Provider Family Medicine
DX: T43.592A Poisoning by other antipsychotics and neuroleptics, intentional self-harm, initial encounter (principal); E87.1 Hypo-osmolality and hyponatremia; Y92.009 Unspecified place in unspecified non-institutional (private) residence as the place of occurrence of the external cause; F10.129 Alcohol abuse with intoxication, unspecified; Y90.6 Blood alcohol level of 120-199 mg/100 ml; E11.9 Type 2 diabetes mellitus without complications; I10 Essential (primary) hypertension; F17.210 Nicotine dependence, cigarettes, uncomplicated; F32.9 Major depressive disorder, single episode, unspecified; M43.16 Spondylolisthesis, lumbar region; M47.896 Other spondylosis, lumbar region; M54.16 Radiculopathy, lumbar region; M25.30 Other instability, unspecified joint; M48.062 Spinal stenosis, lumbar region with neurogenic claudication; F41.9 Anxiety disorder, unspecified; Z96.651 Presence of right artificial knee joint; Z63.0 Problems in relationship with spouse or partner; Z62.820 Parent-biological child conflict; Z87.19 Personal history of other diseases of the digestive system; Z98.51 Tubal ligation status; Z86.010 Personal history of colon polyps; Z88.8 Allergy status to other drugs, medicaments and biological substances; Z82.49 Family history of ischemic heart disease and other diseases of the circulatory system; Z80.1 Family history of malignant neoplasm of trachea, bronchus and lung; Z82.3 Family history of stroke
CPT/HCPCS: 36415; 36416; 80053; 80306; 80307; 81001; 82533; 82962; 83735; 84100; 84443; 84484; 85025; 93005; 96360; 96361; 96372; 99285; J1650; J3411; J7030

== ENCOUNTER 2020-12-21 13:02 | Outpatient (CLI) | payer MEDICAID, SELFPAY ==
--- NOTE | 2020-12-21 13:08 | MM_ITS ---
WS: [id number] BILATERAL DIGITAL SCREENING MAMMOGRAPHY WITH CAD CLINICAL INFORMATION: SCREENING HISTORY: Screening mammogram. No current complaints. COMPARISON: TECHNIQUE: Bilateral CC and MLO views. FINDINGS: Scattered fibroglandular densities bilaterally. A few benign calcifications right breast. No suspicio us focal mass, asymmetry, calcifications, or architectural distortion. No evidence of malignancy. MM/[id number] IMPRESSION: BI-RADS: 2-Benign FOLLOW UP: 1 Year Follow-up Recommend return to annual screening mammography.
== END 2020-12-21 13:03 | disposition home or self-care (01) ==
LOC: RADSHAW 13:06
PROVIDERS: PCP Physician Assistant; Visit Provider Physician Assistant
DX: Z12.31 Encounter for screening mammogram for malignant neoplasm of breast (principal)
CPT/HCPCS: 77067

== ENCOUNTER 2021-06-07 09:03 | Outpatient (CLI) | payer MEDICAID, SELFPAY ==
--- NOTE | 2021-06-07 09:14 | USCV_ITS ---
Dayanara Singleton Age: 60 Gender: F : 1960 Exam Date: 05/26/2021 13:41 Ordering Phys: Marianne Mirza Technologist: Exam Location: [facility] [place]_ Indication: feet pain RIGHT LEFT Brachial 148.00 mmHg Brachial 143.00 mmHg Pressure (mmHg) Waveform Pressure (mmHg) Waveform 153.00 STATISTICAL DEVELOPER 151.00 156.00 DPA 145.00 1.00 Ankle/Brachial Index 1.00 114.00 Pre-Exercise Toe Pressure 119.00 0.77 Pre-Exercise Toe/Brachial Index 0.80 FINDINGS Normal resting ABIs bilaterally Normal resting TBIs bilaterally CONCLUSIONS No evidence of any significant arterial obstruction, based on the above findings. Dr Jethro De Jesus MD [facility] (Electronically Signed) Final Date: 07 June 2021 14:26 S
== END 2021-06-07 09:04 | disposition home or self-care (01) ==
LOC: RAD 09:06
PROVIDERS: PCP Physician Assistant; Visit Provider Physician Assistant
DX: M79.672 Pain in left foot (principal); M79.671 Pain in right foot
CPT/HCPCS: 93922

== ENCOUNTER → 2021-08-03 15:34 | Outpatient (BNVA) | payer MEDICAID, SELFPAY | PROVIDERS: PCP Physician Assistant; Referring Provider Physician Assistant; Visit Provider Specialist | DX: G62.89 Other specified polyneuropathies (principal) | CPT/HCPCS: 95909; 95911 ==

== ENCOUNTER → 2021-09-02 13:04 | Outpatient (BNVA) | payer MEDICAID, SELFPAY | PROVIDERS: PCP Physician Assistant; Referring Provider Physician Assistant; Visit Provider Specialist | DX: G62.89 Other specified polyneuropathies (principal); Q66.90 Congenital deformity of feet, unspecified, unspecified foot | CPT/HCPCS: 95860; 99202 ==

== ENCOUNTER 2021-09-22 05:41 | Day surgery (SDC) | payer MEDICAID, SELFPAY ==
[2021-09-17 13:26] VITALS: BMI 26.5
[2021-09-22 06:07] VITALS: BP 115/84; PULSE 86; RESP 18; TEMP 36.4; O2SAT 93
[2021-09-22] MEDS: sodium chloride 0.9% 1,000 ML 30 ML IV (06:16)
--- NOTE | 2021-09-22 06:55 | P.ANESASSM_ITS ---
Pre-Anesthetic Assessment Height/Weight: Height 1.57 m Weight 65.771 kg Temp Pulse Resp BP Pulse Ox O2 Del Method 97.5 F L 86 18 115/84 93 09/22/21 06:07 09/22/21 06:07 09/22/21 06:07 09/22/21 06:07 09/22/21 06:07 09/22/21 06:07 Preop Diagnosis: diagnostic Operation Date: 09/22/21 07:00 Proposed Procedures p Colonoscopy 64742/k92.1(Not Applicable) - Giorgio Perez MD Familial anesthetic complications: None Was Beta Avinash taken within 24 hours: N/A Was Clonidine taken within 24 hours: N/A Last intake: Intake Last Liquid Date 09/21/21 Last Liquid Time 19:00 Last Solid Date 09/20/21 Last Solid Time 17:00 Social Tobacco and No alcohol 1 pack(s) per day 50 pack years Exam alert, oriented x 3, clear to auscultation bilaterally and regular rate & rhythm Airway Submandibular: within normal limits Cervical ROM: within normal limits Mallampati: Class II Dentition: chipped Comments: Comments: missing multiple History/ROS No significant history except as noted Pulmonary Chronic Obstructive Pulmonary Disease CV/HEM Hypertension None reported Hepatic None reported GI None reported Metabolic Diabetes Mellitus [facility] [place] None reported Neuropsych None reported Anesthetic Plan ASA status: 2 Anesthesia: General and MAC Risk of > 500 ml blood loss (7ml/kg in children): No Medications/Allergies Home Medications Medication Instructions Recorded Confirmed Last Taken Type albuterol sulfate 90 mcg/actuation 1 puff inhalation QID PRN 02/26/19 09/22/21 Unknown History aerosol inhaler (ProAir HFA) Shortness Of Breath Wheelchair #1 ea 02/28/19 09/17/21 Unknown Rx quetiapine 100 mg tablet (Seroquel) 100 mg PO BEDTIME 05/31/19 09/22/21 10/02/20 History atorvastatin 40 mg tablet 40 mg PO DAILY 12/16/19 09/22/21 09/21/21 History fluticasone propionate 50 1 spray intranasal DAILY 12/16/19 09/22/21 Unknown History mcg/actuation nasal spray,suspension metoprolol succinate 100 mg 100 mg PO DAILY 12/16/19 09/22/21 09/21/21 History tablet,extended release 24 hr gabapentin 300 mg capsule 300 mg PO BEDTIME 10/02/20 09/22/21 09/22/21 History Allergies Allergy/AdvReac Type Severity Reaction Status Date / Time meloxicam Allergy ADR-Abdominal Verified 09/22/21 06:03 Pain lorazepam AdvReac Intermediate ADR-Confusi Verified 09/22/21 06:03 on Current Medications Generic Name Dose Route Start Last Admin Trade Name Freq PRN Reason Stop Dose Admin Sodium Chloride 1,000 mls @ 30 mls/hr 09/22/21 06:00 09/22/21 06:16 Sodium Chloride 0.9% IV 09/23/21 05:59 30 mls/hr .Q24H DANILO Administration PFSH Anesthesia Medical History Anxiety Depression Diabetes Esophagitis History of colon polyps Hypertension Intervertebral disc disorder with radiculopathy of lumbosacral region Lumbar stenosis with neurogenic claudication Pain due to internal orthopedic prosthetic devices, implants and grafts, initial encounter This was addressed with the revision total knee arthroplasty involving exchange of the tibial insert with synovectomy. Spondylisthesis Spondylolisthesis at L4-L5 level Surgical History (Updated 09/22/21 @ 07:55 by Giorgio Perez MD) H/O spinal fusion 01/05,, L4 laminectomy H/O tubal ligation History of total knee arthroplasty Right History of total right knee replacement Hx of colonoscopy with polypectomy (09/22/21) diverticulosis and polyps Hx of inguinal hernia repair Hx of umbilical hernia repair Family History Mother Cancer Lung Father CAD (coronary artery disease) Stroke FH: brain aneurysm Brother Cancer Denies family history of Anesthesia complication Bleeding disorder Social History Smoking and tobacco status: never smoked Alcohol intake: current Lives independently: No Household members: none Housing: House Marital status: Legally service: No Current occupational status: disabled History of recent travel: No Data Anesthesia Cardiac Studies: No Data to Display
--- NOTE | 2021-09-22 07:03 | W.PM.OPSFHP ---
Same Day Surgery H&P Indication for Procedure/HPI DATE OF PROCEDURE: September 22, 2021 CHIEF COMPLAINT/INDICATIONFOR SURGICAL PROCEDURE: colonoscopy PREOP DIAGNOSIS: diagnostic PLANNED PROCEDURE: Operation Date: 09/22/21 07:00 Proposed Procedures p Colonoscopy 88609/k92.1(Not Applicable) - Giorgio Perez MD Medications/Allergies* Home Medications Medication Instructions Recorded Confirmed Type albuterol sulfate 90 mcg/actuation 1 puff inhalation QID PRN 02/26/19 09/22/21 History aerosol inhaler (ProAir HFA) Shortness Of Breath quetiapine 100 mg tablet (Seroquel) 100 mg PO BEDTIME 05/31/19 09/22/21 History atorvastatin 40 mg tablet 40 mg PO DAILY 12/16/19 09/22/21 History fluticasone propionate 50 1 spray intranasal DAILY 12/16/19 09/22/21 History mcg/actuation nasal spray,suspension metoprolol succinate 100 mg 100 mg PO DAILY 12/16/19 09/22/21 History tablet,extended release 24 hr gabapentin 300 mg capsule 300 mg PO BEDTIME 10/02/20 09/22/21 History Allergies/Adverse Reactions Allergy/AdvReac Type Severity Reaction Status Date / Time meloxicam Allergy ADR-Abdominal Verified 09/22/21 06:03 Pain lorazepam AdvReac Intermediate ADR-Confusi Verified 09/22/21 06:03 on Current Medications: Generic Name Dose Route Start Last Admin Trade Name Freq PRN Reason Stop Dose Admin Sodium Chloride 1,000 mls @ 30 mls/hr 09/22/21 06:00 09/22/21 06:16 Sodium Chloride 0.9% IV 09/23/21 05:59 30 mls/hr .Q24H DANILO Administration Pertinent History/Comorbid Conditions* Medical History (Updated 08/03/21 @ 18:13 by Trish Lynn MD) Anxiety Depression Diabetes Esophagitis History of colon polyps Hypertension Intervertebral disc disorder with radiculopathy of lumbosacral region Lumbar stenosis with neurogenic claudication Pain due to internal orthopedic prosthetic devices, implants and grafts, initial encounter This was addressed with the revision total knee arthroplasty involving exchange of the tibial insert with synovectomy. Spondylisthesis Spondylolisthesis at L4-L5 level Surgical History (Updated 01/12/20 @ 19:54 by Lupe Hwang MD) H/O spinal fusion 01/05,, L4 laminectomy H/O tubal ligation History of total knee arthroplasty Right History of total right knee replacement Hx of colonoscopy with polypectomy (08/15/19) diverticulosis and polyps Hx of inguinal hernia repair Hx of umbilical hernia repair Family History (Updated 08/09/19 @ 11:29 by Elicia Ferro LPN) CAD (coronary artery disease) Father FH: brain aneurysm Father Cancer Mother Lung Brother Stroke Father Denies family history of Anesthesia complication Bleeding disorder Social History Smoking and tobacco status: never smoked Alcohol intake: current Lives independently: No Household members: none Housing: House Marital status: Legally service: No Current occupational status: disabled History of recent travel: No Pertinent Exam Findings alert, oriented x 3 and regular rate & rhythm Recommendations Surgery/Procedure today Coding Level of Care Code Acute Software Validation Engineer for Adan Guillen
[2021-09-22 07:59] VITALS: BP 169/88; PULSE 66; RESP 16; TEMP 36.2; O2SAT 90
[2021-09-22 08:09] VITALS: BP 178/90; PULSE 74; RESP 18; O2SAT 92
--- NOTE | 2021-09-22 13:05 | ANE.PACU2 ---
Inpatient post-anesthesia follow up: Airway intact: Yes Vital signs: Temperature 97.1 F Pulse Rate 74 Respiratory Rate 18 Blood Pressure 178/90 Pulse Oximetry 92 Oxygen Delivery Me thod Room Air Oxygen Flow Rate Fraction of Inspir ed Oxygen Hydration adequate: Yes Nausea and vomiting: No Pain level: 5 Mental status: Baseline
== END 2021-09-22 08:38 | disposition home or self-care (01) ==
PROVIDERS: PCP Physician Assistant; Visit Provider Surgery
PROC: 0DJD8ZZ Inspection of Lower Intestinal Tract, Via Natural or Artificial Opening Endoscopic (ICD-10-PCS; CPT 45378; principal; 2021-09-22 07:00)
DX: K92.1 Melena (principal); D12.2 Benign neoplasm of ascending colon; D12.4 Benign neoplasm of descending colon; D12.5 Benign neoplasm of sigmoid colon; K64.8 Other hemorrhoids; F17.200 Nicotine dependence, unspecified, uncomplicated; J44.9 Chronic obstructive pulmonary disease, unspecified; I10 Essential (primary) hypertension; E11.9 Type 2 diabetes mellitus without complications; F41.9 Anxiety disorder, unspecified; F32.A Depression, unspecified; Z98.1 Arthrodesis status
CPT/HCPCS: 45380; 45381; 45385; 88305; J2704; J7030

== ENCOUNTER → 2021-09-28 10:07 | Outpatient (BNVA) | payer MEDICAID, SELFPAY | PROVIDERS: PCP Physician Assistant; Visit Provider Surgery | DX: K63.5 Polyp of colon (principal) | CPT/HCPCS: 99212 ==

== ENCOUNTER → 2021-10-21 10:19 | Outpatient (BNVA) | payer MEDICAID, SELFPAY | PROVIDERS: PCP Physician Assistant; Referring Provider Physician Assistant; Visit Provider Orthopaedic Surgery | DX: M85.88 Other specified disorders of bone density and structure, other site (principal); M47.814 Spondylosis without myelopathy or radiculopathy, thoracic region; M47.812 Spondylosis without myelopathy or radiculopathy, cervical region; M43.16 Spondylolisthesis, lumbar region; M48.062 Spinal stenosis, lumbar region with neurogenic claudication | CPT/HCPCS: 72040; 72070; 72110; 99214 ==

== ENCOUNTER 2021-11-17 10:48 | Outpatient (CLI) | payer MEDICAID, SELFPAY ==
--- NOTE | 2021-11-17 11:00 | MR_ITS ---
WS: [id number] MRI CERVICAL SPINE NONCONTRAST TECHNIQUE: Sagittal T1, T2 and STIR imaging. Axial T2, gradient, and fiesta imaging. CLINICAL INFORMATION: neck pain COMPARISON: None. FINDINGS: Straightening of the normal cervical lordosis. Cord signal is normal. Mild to moderate central canal stenosis C4-C5 C5-C6 and C6-C7. Moderate central canal stenosis at C5-C6. C2-C3: Normal. C3-C4: Tiny central disc protrusion. Mild facet arthropathy. Mild LEFT foraminal narrowing. Spinal ca nal is patent. C4-C5: Shallow central disc protrusion. Slight contact of the cervical cord. Mild central canal steno sis. Moderate bilateral bony foraminal narrowing RIGHT greater than LEFT. Mild facet arthropathy and uncovertebral joint hypertrophy. C5-C6: Central disc osteophyte protrusion. Slight contact of the cervical cord. Moderate central jn l stenosis. Moderate LEFT and mild RIGHT bony foraminal narrowing. Moderate facet arthropathy with un covertebral joint hypertrophy. C6-C7: Disc osteophyte complex with endplate ridging. Severe LEFT and moderate RIGHT bony foraminal n arrowing. Moderate facet arthropathy with uncovertebral joint hypertrophy. Mild central canal stenosi s. C7-T1: Disc osteophytic ridging. Spinal canal and foramen are patent. Mild facet arthropathy. Visualized brain stem structures: Normal. Prevertebral soft tissues: Normal. MR/MR cervical spin wo con* [id number] IMPRESSION: 1. Straightening of the normal cervical lordosis. 2. Mild disc bulging C4-C5 C5-C6 and C6-C7 with slight indentation on cervical cord at C4-C5 and C5-C6. 3. Moderate central canal stenosis C5-C6 with slight indentation on the cervic al cord. 4. Mild central canal stenosis C4-C5 and C6-C7. 5. Moderate bony foraminal narrowing worse at bilateral C4-C5 worse in the RIG HT, LEFT C5-C6, and moderate to severe LEFT C6-C7. 6. 6 mm retention cyst or polyp partially evaluated in the LEFT posterior phar ynx just above the epiglottis. This can be further evaluated with direct visual ization.
--- NOTE | 2021-11-17 11:45 | MR_ITS ---
WS: [id number] MRI LUMBAR SPINE NONCONTRAST TECHNIQUE: Sagittal T1, T2 and STIR imaging. Axial T1 and T2 imaging. CLINICAL INFORMATION: low back pain/pst op fusion COMPARISON: CT lumbar March 15, 2019. MR lumbar February 11, 2019 FINDINGS: Mild lumbar curve. No acute compression. Pedicle screw fixation L4-L5 interbody fusion. Disc bulging worse at L3-L4 and L5-S1. Pedicle screw fixation is new since March 15, 2019 L1-L2: Normal. L2-L3: Mild annular bulging. Mild facet arthropathy. Spinal canal and foramen are patent. L3-L4: Mild disc bulging with slight effacement of the ventral thecal sac. Mild central canal stenosi s. Slight impingement traversing L4 nerve roots bilaterally. Mild facet arthropathy. Mild LEFT forami nal narrowing. L4-L5: Pedicle screw fixation. Interbody fusion. Mild LEFT and no significant RIGHT foraminal narrowi ng. Mild facet arthropathy. L5-S1: RIGHT pericentral disc protrusion impinges the traversing S1 nerve root in the RIGHT subarticu lar recess. Mild RIGHT foraminal narrowing. LEFT foramen is patent. Mild facet arthropathy. Visualized pelvic bony structures: Normal. Paravertebral soft tissues: Normal. Large upper pole RIGHT renal cyst measuring 4.8 x 5.5 x 4.3 cm with peripheral calcification. MR/MR lumbar spine wo con* [id number] IMPRESSION: 1. Mild lumbar curve. No acute compression. Pedicle screw fixation L4-L5 with interbody fusion graft new from the prior examinations. 2. RIGHT pericentral disc protrusion L5-S1 impinges the RIGHT S1 nerve root in the subarticular recess. Recommend correlation for RIGHT S1 nerve root symptom s. Mild RIGHT L5-S1 foraminal narrowing. This is similar to the CT March 15, 2019. 3. Mild central canal stenosis L3-L4 with slight impingement traversing L4 ner ve roots bilaterally. Mild LEFT L3-L4 foraminal narrowing. 4. Large upper pole RIGHT renal cyst measuring 4.8 x 5.5 x 4.3 cm. 5. Mild central canal stenosis on the wellness program manager imaging at C4-C6.
== END 2021-11-17 10:49 | disposition home or self-care (01) ==
LOC: RAD 10:49
PROVIDERS: PCP Physician Assistant; Visit Provider Orthopaedic Surgery
DX: M50.221 Other cervical disc displacement at C4-C5 level (principal); M50.222 Other cervical disc displacement at C5-C6 level; M50.223 Other cervical disc displacement at C6-C7 level; M48.02 Spinal stenosis, cervical region; M51.27 Other intervertebral disc displacement, lumbosacral region; M48.061 Spinal stenosis, lumbar region without neurogenic claudication
CPT/HCPCS: 72141; 72148

== ENCOUNTER → 2021-11-18 14:05 | Outpatient (BNVA) | payer MEDICAID, SELFPAY | PROVIDERS: PCP Physician Assistant; Visit Provider Orthopaedic Surgery | DX: M48.02 Spinal stenosis, cervical region (principal); M47.12 Other spondylosis with myelopathy, cervical region | CPT/HCPCS: 99214 ==

== ENCOUNTER 2021-12-13 12:44 | Outpatient (CLI) | payer MEDICAID, SELFPAY ==
--- NOTE | 2021-12-13 13:06 | XR_ITS ---
WS: [id number] DEXA (DUAL ENERGY X-RAY ABSORPTIOMETRY) Bone mineral density was performed using a [employer] machine. HISTORY: POST MENOPAUSAL COMPARISON: None available. Left forearm BMD: 0.751 g/cm2. T score: -1.4 Z score: -0.6 Total hip BMD: Left: 0.914 g/cm2. T score: -0.7 Z score: 0.2 Right: 0.852 g/cm2. T score: -1.2 Z score: -0.3 10 year probability of a major osteoporotic fracture is 17.3%. XR/XR DEXA axial skeleton* [id number] IMPRESSION: OSTEOPENIA based upon the WHO classification for females.
== END 2021-12-13 12:45 | disposition home or self-care (01) ==
LOC: RAD 12:45
PROVIDERS: PCP Physician Assistant; Visit Provider Physician Assistant
DX: Z78.0 Asymptomatic menopausal state (principal); M85.80 Other specified disorders of bone density and structure, unspecified site
CPT/HCPCS: 77080

== ENCOUNTER 2021-12-29 05:50 | Day surgery (SDC) | payer MEDICAID, SELFPAY ==
[2021-12-23 10:46] VITALS: BMI 25.6
[2021-12-29] VITALS (16 sets, daily range): BP systolic 121–169; BP diastolic 73–90; PULSE 69–84; RESP 9–22; TEMP 36.1–36.9; O2SAT 92–100
--- NOTE | 2021-12-29 | XR_ITS ---
WS: [id number] Cervical spine, C-arm fluoroscopy views, 12/29/2021 Clinical Data: or pic. acdf c4-5, c5-6, c6-7 Comparison: Cervical spine, 10/21/2021 Findings: Dr. Ugarte applied to anterior cervical disc fusion from C4 through C7. There are disc space rs at the disc intervals C4-C5, C5-C6 and C6-C7. XR/XR cervical spine 3V* [id number] Impression: Anterior cervical disc fusion C4-C7.
--- NOTE | 2021-12-29 | SCC_ITS ---
Post-op findings: 1. Anterior diskectomy C4/5 2. Anterior diskectomy C5/6 3. Anterior discectomy C6/7 4. Insertion of cage C4/5 5. Insertion of cage C5/6 6. Insertion of Cage C6/7 7. Instrumentation with anterior plate from C4-C7 8. Use of allograft 10 seconds of fluoroscopic guidance, for a cumulative dose of 0.3 mGy, was provided to Dr. Ugarte by the radiology department. C-arm images of the cervical spine were saved for the patient's permanent record. YORDAN
--- NOTE | 2021-12-29 06:08 | PC.NURSE ---
Patient requests that her Ex Benji Singleton not be allowed in her room or to know anything about her.
[2021-12-29] MEDS: sodium chloride 0.9% 1,000 ML 30 ML IV (06:29)
--- NOTE | 2021-12-29 06:38 | PM.HP ---
Providers/Chief Complaint Primary Care Provider: Marianne Mirza Chief Complaint: ACDF C4/5 C5/6 C6/7 [id number] History of Present Illness Dayanara Singleton is a 61 year old female She? describes pain to her feet and legs as a burning sensation. She states she is no longer able to grocery shop due to her poor balance. Review of Systems General: Reports: 10 or more systems reviewed and unremarkable except in HPI and below Const: Denies: fever(s), chills or body aches Eyes: Denies: photophobia ENMT: Denies: enlarged tonsils Card: Denies: chest pain or orthopnea Resp: Denies: dyspnea, productive cough or wheezing GI: Denies: abdominal pain, nausea or vomiting Musc: Denies: joint warmth Skin/Breast: Denies: changes in skin color or dry skin Neuro: Reports: headache(s), numbness in extremities and weakness in extremities Psych: Denies: anxiety [place]de/Lymph: Denies: easy bruising or easy bleeding Medications/Allergies Home Medications Medication Instructions Recorded Confirmed Last Taken Type albuterol sulfate 90 mcg/actuation 1 puff inhalation QID PRN 02/26/19 12/29/21 Unknown History aerosol inhaler (ProAir HFA) Shortness Of Breath Wheelchair #1 ea 02/28/19 11/18/21 Unknown Rx quetiapine 100 mg tablet (Seroquel) 100 mg PO BEDTIME 05/31/19 12/23/21 12/28/21 History atorvastatin 40 mg tablet 40 mg PO DAILY 12/16/19 12/29/21 12/28/21 History fluticasone propionate 50 1 spray intranasal DAILY 12/16/19 12/23/21 12/28/21 History mcg/actuation nasal spray,suspension metoprolol succinate 100 mg 100 mg PO DAILY 12/16/19 12/23/21 12/28/21 History tablet,extended release 24 hr gabapentin 300 mg capsule 300 mg PO TID 11/18/21 12/23/21 12/28/21 History Intraoperative Neuromonitoring #1 ea 12/27/21 Unknown Rx Allergies Allergy/AdvReac Type Severity Reaction Status Date / Time meloxicam Allergy ADR-Abdominal Verified 10/21/21 10:26 Pain lorazepam AdvReac Intermediate ADR-Confusi Verified 10/21/21 10:26 on PFSH Acute PFSH: Medical History Anxiety Colon polyps Depression Diabetes Esophagitis History of colon polyps Hypertension Intervertebral disc disorder with radiculopathy of lumbosacral region Lumbar stenosis with neurogenic claudication Pain due to internal orthopedic prosthetic devices, implants and grafts, initial encounter This was addressed with the revision total knee arthroplasty involving exchange of the tibial insert with synovectomy. Spondylisthesis Spondylolisthesis at L4-L5 level Surgical History H/O spinal fusion 01/05,, L4 laminectomy H/O tubal ligation History of total knee arthroplasty Right History of total right knee replacement Hx of colonoscopy with polypectomy (09/22/21) diverticulosis and polyps Hx of inguinal hernia repair Hx of umbilical hernia repair Family History Mother Cancer Lung Father CAD (coronary artery disease) Stroke FH: brain aneurysm Brother Cancer Denies family history of Anesthesia complication Bleeding disorder Social History Smoking and tobacco status: never smoked Alcohol intake: current Lives independently: No Household members: none Housing: House Marital status: Legally service: No Current occupational status: disabled History of recent travel: No Vitals/I&O/Wt Last Vital Signs Temp 98.4 F 12/29/21 06:07 Pulse 75 12/29/21 06:07 Resp 18 12/29/21 06:07 BP 169/90 12/29/21 06:07 Pulse Ox 96 12/29/21 06:07 O2 Del Method 12/29/21 06:14 Physical Exam Const: COMMON NORMALS: no acute distress and patient oriented x3 Neck/C-Spine: COMMON NORMALS: no JVD Resp: COMMON NORMALS: normal respiratory effort, No retractions, No use of accessory muscles and clear to auscultation bilaterally AUSCULTATION: clear to auscultation bilaterally Cardio: COMMON NORMALS: no JVD, regular rate, regular rhythm, S1 normal heart sound present and S2 normal heart sound present RATE: regular rate RHYTHM: regular rhythm HEART SOUNDS: S1 normal heart sound present and S2 normal heart sound present GI: COMMON NORMALS: Normal to inspection, nondistended, normoactive bowel sounds present, Soft to palpation, non-tender and No hepatosplenomegaly present PALPATION: Yes Soft to palpation and Yes No hepatosplenomegaly present Extremity: COMMON NORMALS: no pedal edema Neuro: COMMON NORMALS: patient oriented x3 Psych: COMMON NORMALS: mental status grossly normal A&P Assessment and plan (1) Cervical spondylosis with myelopathy: ACDF this am Attestations Medical Necessity Statement*: failed conservative tx Coding Level of Care Code Acute Freelance Art Director for [facility] Fwd Diagnoses Cervical spondylosis with myelopathy M47.12
[2021-12-29] MEDS: metoclopramide 5 mg/mL SDV 2 mL IVP (06:57)
[2021-12-29] MEDS: ceFAZolin 2,000 MG in sodium chloride 0.9% (plus) 50 ML 100 MG IV (07:00)
--- NOTE | 2021-12-29 07:43 | SUR.OPER ---
attempted to contact son to notify him of surgical start. no answer.
--- NOTE | 2021-12-29 07:47 | SUR.OPER ---
Son called back, notified him of surgical start.
--- NOTE | 2021-12-29 08:16 | ANES.PREANE2 ---
Pre-Anesthetic Assessment Height/Weight: Height 1.57 m Weight 63.503 kg Temp Pulse Resp BP Pulse Ox O2 Del Method 98.4 F 75 18 169/90 96 12/29/21 06:07 12/29/21 06:07 12/29/21 06:07 12/29/21 06:07 12/29/21 06:07 12/29/21 06:14 Preop Diagnosis: Cervical spondylosis with myelopathy Operation Date: 12/29/21 07:00 Proposed Procedures p ACDF C4/5 C5/6 C6/7 [id number]/G99.2(Not Applicable) - Colin Ugarte, Familial anesthetic complications: none Was Beta Avinash taken within 24 hours: Yes Was Clonidine taken within 24 hours: N/A Last intake: Intake Last Liquid Date 12/28/21 Last Liquid Time 21:30 Last Solid Date 12/28/21 Last Solid Time 19:00 Social No alcohol and No tobacco Exam alert, oriented x 3, clear to auscultation bilaterally and regular rate & rhythm Airway Submandibular: within normal limits Cervical ROM: within normal limits Mallampati: Class II CV/HEM Hypertension Metabolic Diabetes Mellitus and Hyperlipidemia [facility] Osteoarthritis/DJD Neuropsych Anxiety Anesthetic Plan ASA status: 3 Anesthesia: General Medications/Allergies Home Medications Medication Instructions Recorded Confirmed Last Taken Type albuterol sulfate 90 mcg/actuation 1 puff inhalation QID PRN 02/26/19 12/29/21 Unknown History aerosol inhaler (ProAir HFA) Shortness Of Breath Wheelchair #1 ea 02/28/19 11/18/21 Unknown Rx quetiapine 100 mg tablet (Seroquel) 100 mg PO BEDTIME 05/31/19 12/23/21 12/28/21 History atorvastatin 40 mg tablet 40 mg PO DAILY 12/16/19 12/29/21 12/28/21 History fluticasone propionate 50 1 spray intranasal DAILY 12/16/19 12/23/21 12/28/21 History mcg/actuation nasal spray,suspension metoprolol succinate 100 mg 100 mg PO DAILY 12/16/19 12/23/21 12/28/21 History tablet,extended release 24 hr gabapentin 300 mg capsule 300 mg PO TID 11/18/21 12/23/21 12/28/21 History Intraoperative Neuromonitoring #1 ea 12/27/21 Unknown Rx Allergies Allergy/AdvReac Type Severity Reaction Status Date / Time meloxicam Allergy ADR-Abdominal Verified 10/21/21 10:26 Pain lorazepam AdvReac Intermediate ADR-Confusi Verified 10/21/21 10:26 on Current Medications Generic Name Dose Route Start Last Admin Trade Name Freq PRN Reason Stop Dose Admin Sodium Chloride 1,000 mls @ 30 mls/hr 12/29/21 06:15 12/29/21 06:29 Sodium Chloride 0.9% IV 12/30/21 06:14 30 mls/hr .Q24H DANILO Administration Metoclopramide HCl 5 mg 12/29/21 06:54 12/29/21 06:57 Metoclopramide 5 Mg/Ml Sdv 2 Ml IVP 5 mg Q6H PRN Administration NAUSEA AND VOMITING PFSH Anesthesia Medical History Anxiety Colon polyps Depression Diabetes Esophagitis History of colon polyps Hypertension Intervertebral disc disorder with radiculopathy of lumbosacral region Lumbar stenosis with neurogenic claudication Pain due to internal orthopedic prosthetic devices, implants and grafts, initial encounter This was addressed with the revision total knee arthroplasty involving exchange of the tibial insert with synovectomy. Spondylisthesis Spondylolisthesis at L4-L5 level Surgical History H/O spinal fusion 01/05,, L4 laminectomy H/O tubal ligation History of total knee arthroplasty Right History of total right knee replacement Hx of colonoscopy with polypectomy (09/22/21) diverticulosis and polyps Hx of inguinal hernia repair Hx of umbilical hernia repair Family History Mother Cancer Lung Father CAD (coronary artery disease) Stroke FH: brain aneurysm Brother Cancer Denies family history of Anesthesia complication Bleeding disorder Social History Smoking and tobacco status: never smoked Alcohol intake: current Lives independently: No Household members: none Housing: House Marital status: Legally service: No Current occupational status: disabled History of recent travel: No Data Anesthesia Cardiac Studies: No Data to Display
[2021-12-29] MEDS: HYDROmorphone 1 mg/mL INJ 1 mL 0.5 MG IVP ×2 (09:24→09:45)
--- NOTE | 2021-12-29 09:29 | PM.OP ---
Operative Report Date of procedure: December 29, 2021 Pre-op diagnosis: Preop Diagnosis Cervical spondylosis with myelopathy Post-op diagnosis: same Post-op findings: 1. Anterior diskectomy C4/5 2. Anterior diskectomy C5/6 3. Anterior discectomy C6/7 4. Insertion of cage C4/5 5. Insertion of cage C5/6 6. Insertion of Cage C6/7 7. Instrumentation with anterior plate from C4-C7 8. Use of allograft Surgeon: Colin Ugarte Director Of Community Life: Jonny Delgado Director Of Community Life: The assembler surgical garment, Jonny Delgado, PAC was needed for his expertise under the microscope. He was important and necessary throughout the procedure to complete in a safe and timely manner. He assisted with patient positioning prepping and draping tissue retraction suctioning of the operative field protection of the dural sac and tissue closure Estimated blood loss (mL): 10 Procedure: 1. Anterior diskectomy C4/5 2. Anterior diskectomy C5/6 3. Anterior discectomy C6/7 4. Insertion of cage C4/5 5. Insertion of cage C5/6 6. Insertion of Cage C6/7 7. Instrumentation with anterior plate from C4-C7 8. Use of allograft The patient was taken to the operating room, where he underwent general endotracheal anesthesia without complications. He was then positioned supine on the operating table, and all areas of impingement were well padded. The arms were carefully padded and tucked at his sides. A roll was placed between the shoulder blades.. An x-ray was done to determine the appropriate level for the skin incision. The entire neck was then sterilely prepped and draped in the usual fashion. Neuromonitoring was attached prior to prepping. A transverse skin incision was made and carried down to the platysma muscle. This was then split in line with its fibers. Blunt dissection was carried down medial to the carotid sheath and lateral to the trachea and esophagus until the anterior cervical spine was visualized. A needle was placed into a disc and an x-ray was done to determine its location. The longus colli muscles were then elevated bilaterally with the electrocautery unit. Self-retaining retractors were placed deep to the longus colli muscle. Attention was brought to the C4/5 level that was confirmed on x-ray. A caspar pin was placed into the C4 vertebrae and the C5 vertebrae. The disk space was then distracted. The microscope was then brought in. A radical anterior discectomies were performed at C4/5. This included complete removal of the anterior annulus, nucleus, and posterior annulus. The posterior longitudinal ligament was removed as were the posterior osteophytes. Foraminotomies were then accomplished bilaterally. This was done using a high speed victorino, kerrison rongeurs and curretes Once all of this was accomplished, the curved currette was used to check for any residual compression. The central canal was wide open as were the foramen. A high-speed bur was used to remove the cartilaginous endplates above and below the interspace. Bleeding cancellous bone was exposed. The disc space were measured and appropriate size cage were placed sterilely onto the field. Allograft graft was packed into the cages. The cage was then placed and there was good juxtaposition against the bleeding decorticated surfaces and good distraction of each interspace. Attention was brought to the next interspace. The [place] pins were removed. Bone wax was used to prevent any bleeding from occurring at the pin sites. Attention was brought to the C5/6 level that was confirmed on x-ray. A caspar pin was placed into the C5 vertebrae and the C6 vertebrae. The disk space was then distracted. The microscope was then brought in. A radical anterior discectomies were performed at C5/6. This included complete removal of the anterior annulus, nucleus, and posterior annulus. The posterior longitudinal ligament was removed as were the posterior osteophytes. Foraminotomies were then accomplished bilaterally. This was done using a high speed victorino, kerrison rongeurs and curretes Once all of this was accomplished, the curved currette was used to check for any residual compression. The central canal was wide open as were the foramen. A high-speed bur was used to remove the cartilaginous endplates above and below the interspace. Bleeding cancellous bone was exposed. The disc space were measured and appropriate size cage were placed sterilely onto the field. Allograft graft was packed into the cages. The cage was then placed and there was good juxtaposition against the bleeding decorticated surfaces and good distraction of each interspace. Attention was brought to the next interspace. The [place]on pins were removed. Bone wax was used to prevent any bleeding from occurring at the pin sites. Attention was brought to the C6/7 level that was confirmed on x-ray. A caspar pin was placed into the C6 vertebrae and the C7 vertebrae. The disk space was then distracted. The microscope was then brought in. A radical anterior discectomies were performed at C6/7. This included complete removal of the anterior annulus, nucleus, and posterior annulus. The posterior longitudinal ligament was removed as were the posterior osteophytes. Foraminotomies were then accomplished bilaterally. This was done using a high speed victorino, kerrison rongeurs and curretes Once all of this was accomplished, the curved currette was used to check for any residual compression. The central canal was wide open as were the foramen. A high-speed bur was used to remove the cartilaginous endplates above and below the interspace. Bleeding cancellous bone was exposed. The disc space were measured and appropriate size cage were placed sterilely onto the field. Allograft graft was packed into the cages. The cage was then placed and there was good juxtaposition against the bleeding decorticated surfaces and good distraction of each interspace. Attention was brought to the next interspace. The Wauseon pins were removed. Bone wax was used to prevent any bleeding from occurring at the pin sites. The appropriate size anterior cervical locking plate was chosen and bent into gentle lordosis. Two screws were then placed into each of the vertebral bodies at C4, C5, C6 and C7. There was excellent purchase. A final x-ray was done confirming good position of the hardware and Cages. The locking screws were then applied, also with excellent purchase. Following a final copious irrigation, there was good hemostasis and no dural leaks. The carotid pulse was strong. The wounds were then closed in layers using 2-0 Vicryl suture for the platysma muscle, 2-0 Vicryl suture for the subcutaneous tissue, and 4-0 monocryl suture in a subcuticular skin closure. Glue was placed followed by application of a sterile dressing. The drain was hooked to bulb suction. A soft collar was applied. The patient was then carefully returned to the supine position on his hospital bed where he was reversed and extubated and taken to the recovery room having tolerated the procedure well.
[2021-12-29] MEDS: HYDROcodone-acetaminophen 5-325 mg Tablet 1 TAB PO (11:21)
--- NOTE | 2021-12-29 14:57 | ANE.PACU2 ---
Inpatient post-anesthesia follow up: Airway intact: Yes Vital signs: Temperature 97.0 F Pulse Rate 75 Respiratory Rate 18 Blood Pressure 150/86 Pulse Oximetry 95 Oxygen Delivery Me thod Room Air Oxygen Flow Rate 10 Fraction of Inspir ed Oxygen Hydration adequate: Yes Nausea and vomiting: No Pain level: 3 Mental status: Baseline
== END 2021-12-29 11:48 | disposition home or self-care (01) ==
PROVIDERS: PCP Physician Assistant; Visit Provider Orthopaedic Surgery
PROC: 0RB30ZZ Excision of Cervical Vertebral Disc, Open Approach (ICD-10-PCS; CPT 22551; principal; 2021-12-29 07:00)
DX: M47.12 Other spondylosis with myelopathy, cervical region (principal); I10 Essential (primary) hypertension; E11.9 Type 2 diabetes mellitus without complications; E78.5 Hyperlipidemia, unspecified; M19.90 Unspecified osteoarthritis, unspecified site; F41.9 Anxiety disorder, unspecified
CPT/HCPCS: 20930; 22551; 22552 ×2; 22845; 22853 ×3; 51702; 72040; 76000; C1713; C9359; J0330; J0690; J1100; J1170; J2250; J2405; J2704; J2710; J2765; J3010; J3490; J7030

== ENCOUNTER 2022-01-01 15:52 | Emergency (ER) | payer MEDICAID, SELFPAY ==
[2022-01-01 15:53] VITALS: BMI 25.6
--- NOTE | 2022-01-01 15:55 | W.ED.CHESTPA ---
HPI - Chest Pain General: Chief Complaint: Chest Pain Stated Complaint: CHEST PAIN Time Seen by Provider: 01/01/22 15:53 Source: patient Mode of arrival: EMS History of Present Illness: 61-year-old female presents to the emergency room with complaint of generally not feeling well. She gives several different chief complaints between talking to the nurse and to myself. She related to chest discomfort bloating in her abdomen some generalized pain when she relates to her left side which she had not had previously. She recently had a anterior cervical discectomy she said since then she has not felt well. MD complaint: chest pain Onset (ago): day(s) Timing of current episode: episodic Quality: aching Relieving factors: nothing Exacerbating factors: nothing Associated symptoms: Reports abdominal pain; Deny diaphoresis, dyspnea, fever(s), leg edema, nausea, palpitations, sense of impending doom, syncope or vomiting Review of Systems Const: Denies: fever(s), chills, body aches, change in appetite, fatigue, malaise or diaphoresis ENMT: Denies: throat pain, ear or mastoid pain, nasal discharge or nasal congestion Card: Denies: chest pain, palpitations, edema, syncope, dyspnea on exertion or orthopnea Resp: Denies: dyspnea, productive cough or non-productive cough GI: Reports: abdominal pain; Denies: nausea, vomiting, hematemesis, coffee ground emesis, diarrhea, constipation, bloating, hematochezia or melena : Denies: flank pain, difficulty voiding, dysuria, urinary frequency or urinary urgency Skin/Breast: Denies: rash or pruritus PFSH ED PFSH: Medical History Anxiety Colon polyps Depression Diabetes Esophagitis History of colon polyps Hypertension Intervertebral disc disorder with radiculopathy of lumbosacral region Lumbar stenosis with neurogenic claudication Pain due to internal orthopedic prosthetic devices, implants and grafts, initial encounter This was addressed with the revision total knee arthroplasty involving exchange of the tibial insert with synovectomy. Spondylisthesis Spondylolisthesis at L4-L5 level Surgical History H/O spinal fusion 01/05,, L4 laminectomy H/O tubal ligation History of total knee arthroplasty Right History of total right knee replacement Hx of colonoscopy with polypectomy (09/22/21) diverticulosis and polyps Hx of inguinal hernia repair Hx of umbilical hernia repair Family History Mother Cancer Lung Father CAD (coronary artery disease) Stroke FH: brain aneurysm Brother Cancer Denies family history of Anesthesia complication Bleeding disorder Social History Smoking and tobacco status: never smoked Alcohol intake: current Lives independently: No Household members: none Housing: House Marital status: Legally service: No Current occupational status: disabled History of recent travel: No Physical Exam Const: GENERAL APPEARANCE: cooperative and comfortable ORIENTATION/CONSCIOUSNESS: Yes awake, Yes oriented to person, Yes oriented to place and Yes oriented to time HENMT: COMMON NORMALS: normocephalic, atraumatic and hearing grossly normal bilaterally HEAD & SCALP: normocephalic and atraumatic Resp: COMMON NORMALS: normal respiratory effort, No retractions, No use of accessory muscles and clear to auscultation bilaterally AUSCULTATION: clear to auscultation bilaterally Cardio: COMMON NORMALS: regular rate, regular rhythm and No murmurs present (Cardio) RATE: regular rate RHYTHM: regular rhythm GI: COMMON NORMALS: Soft to palpation and No hepatosplenomegaly present AUSCULTATION: Yes normoactive bowel sounds PALPATION: Yes Soft to palpation, No Tenderness to palpation present (GI), No Guarding due to palpation present (GI) and Yes No hepatosplenomegaly present Extremity: COMMON NORMALS: normal to inspection, capillary refill normal, no clubbing, cyanosis or edema, no calf tenderness and no pedal edema Neuro: SENSORIUM/ORIENTATION: Yes oriented to person, Yes oriented to place and Yes oriented to time Skin: COMMON NORMALS: no rashes or lesions noted GENERAL SKIN EXAM: no rashes or lesions noted Course Vital Signs: Vital signs: Vital Signs Pulse Rate 80 01/01/22 17:00 Respiratory Rate 14 01/01/22 17:00 Blood Pressure 180/97 01/01/22 17:30 Pulse Oximetry 95 01/01/22 17:30 Oxygen Delivery Me thod 01/01/22 16:30 MDM - Chest Pain Medical Decision Making Patient has multiple nonspecific complaints. Does not sound like she has acute coronary syndrome her EKG is normal troponin is normal. Acute abdomen series shows air in the colon but does not show any air-fluid level she has bowel sounds and she was eating and drinking without any difficulty no vomiting in the ER. Discharge patient home do clock suppository prior to discharge can use Duca locks suppositories at home every 6 hours until adequate results achieved. Continue to use current pain medications. Follow-up with orthopedic surgery next week primary care doctor as needed. Medical Records I reviewed the patient's medical records. Lab Data I reviewed the patient's lab results. : 01/01/22 16:00 01/01/22 16:00 Radiology Impressions Chest/Abdomen X-ray 01/01/22 16:04 IMPRESSION: 1. Negative chest examination. 2. Multiple nonspecific gas-filled bowel loops. 3. Metallic surgical hardware lumbar, and cervical spine . 4. Otherwise negative examination Laboratory Results WBC 7.7 10^3/uL (4.0-10.0) 01/01/22 16:00 RBC 5.54 10^6/uL (4.1-5.3) H 01/01/22 16:00 Hgb 16.4 g/dL (11.5-15.3) H 01/01/22 16:00 Hct 47.2 % (37.0-47.0) H 01/01/22 16:00 MCV 85.2 fl (81-99) 01/01/22 16:00 MCH 29.6 pg (28.0-34.0) 01/01/22 16:00 MCHC 34.7 g/dL (30.0-36.0) 01/01/22 16:00 RDW 14.1 % (12.1-15.1) 01/01/22 16:00 Plt Count 377 10^3/cmm (130-400) 01/01/22 16:00 MPV 9.5 fL (7.4-10.4) 01/01/22 16:00 Neut % (Auto) 55.5 % 01/01/22 16:00 Lymph % (Auto) 31.2 % 01/01/22 16:00 Morris % (Auto) 9.6 % 01/01/22 16:00 Eos % (Auto) 2.7 % 01/01/22 16:00 Baso % (Auto) 0.5 % 01/01/22 16:00 Neut # (Auto) 4.26 10^3/uL (1.8-7.7) 01/01/22 16:00 Lymph # (Auto) 2.4 10^3/uL (0.8-4.8) 01/01/22 16:00 Morris # (Auto) 0.7 10^3/uL (0.2-0.9) 01/01/22 16:00 Eos # (Auto) 0.2 10^3/uL (0.0-0.8) 01/01/22 16:00 Baso # (Auto) 0.0 10^3/uL (0.0-0.1) 01/01/22 16:00 Nucleated RBC % (auto) 0 % 01/01/22 16:00 Nucleated RBCs # 0.0 /100WBC 01/01/22 16:00 Sodium 126 mmol/L (136-145) L 01/01/22 16:00 Potassium 4.0 mmol/L (3.5-5.1) 01/01/22 16:00 Chloride 90 mmol/L (98-107) L 01/01/22 16:00 Carbon Dioxide 24 mmol/L (22-29) 01/01/22 16:00 Anion Gap 16.0 (5-19) 01/01/22 16:00 BUN 14 mg/dL (6-20) 01/01/22 16:00 Creatinine 0.6 mg/dL (0.5-0.9) 01/01/22 16:00 GFR Calculation 102.3 mL/min (90-130) 01/01/22 16:00 Glucose 106 mg/dL (65-115) 01/01/22 16:00 Calculated Osmolality 263 mOsm/kg (285-295) L 01/01/22 16:00 Calcium 9.4 mg/dL (8.5-10.5) 01/01/22 16:00 Total Bilirubin 0.4 mg/dL (0.15-1.2) 01/01/22 16:00 AST 92 U/L (0-32) H 01/01/22 16:00 ALT 105 U/L (0-33) H 01/01/22 16:00 Alkaline Phosphatase 87 U/L (35-105) 01/01/22 16:00 Troponin T Baseline 8 ng/L (0-10) 01/01/22 16:00 Total Protein 6.6 g/dL (6.6-8.7) 01/01/22 16:00 Albumin 4.0 g/dL (3.5-5.2) 01/01/22 16:00 Globulin 2.6 g/dL (1.3-4.6) 01/01/22 16:00 Discharge Plan Discharge Patient Disposition: Home Clinical Impression: Constipation by delayed colonic transit, Chronic hyponatremia, Hypertension, Post-operative pain Condition: Stable Prescriptions: New Dulcolax (bisacodyl) 10 mg suppository 10 mg GA DAILY PRN (Reason: constipation) Qty: 12 0RF Rx Instructions: Repeat every 4-6 hours until adequate results achieved amlodipine 5 mg tablet 5 mg PO DAILY Qty: 30 0RF No Action quetiapine [Seroquel] 100 mg tablet 100 mg PO BEDTIME (DME) Wheelchair Qty: 1 0RF Rx Instructions: As directed (DME) Intraoperative Neuromonitoring See Rx Instructions .Route .MEDSUPPLY Qty: 1 0RF Rx Instructions: As directed gabapentin 300 mg capsule 300 mg PO TID albuterol sulfate [ProAir HFA] 90 mcg/actuation HFA aerosol inhaler 1 puff INHALATION QID PRN (Reason: Shortness Of Breath) atorvastatin 40 mg Tablet 40 mg PO DAILY Rx Instructions: TAKE IN THE EVENING metoprolol succinate 100 mg Tablet Extended Release 24 Hr 100 mg PO DAILY fluticasone propionate 50 mcg/actuation Chemult,Suspension 1 spray INTRANASAL DAILY PRN (Reason: Nasal Congestion) Narcan 4 mg/actuation spray,non-aerosol 1 spray INTRANASAL . DIRECTED PRN (Reason: overdose) hydrocodone-acetaminophen 5-325 mg tablet 1 - 2 tab PO .Q4-6H PRN (Reason: Pain) Discharge Orders: Discharge ED (Routine); Ordered 01/01/22 Ordered By: Yosef Butler Referrals: Marianne Mirza PA [Primary Care Provider] - Discharge Diet: Usual diet Discharge Activity: Limit activity as instructed Patient Instructions: Opioid Safety, Pain Management Activity Restrictions/Additional Instructions: Follow-up with your primary care doctor as needed. Follow-up with orthopedic surgery as previously scheduled sooner if needed. You can always also use [id number] enemas to relieve constipation. Coding Level of Care Code ED Artist Relationship Manager for Chg Fwd Exam Detailed
[2022-01-01 15:59] VITALS: PULSE 90; RESP 13; O2SAT 94
[2022-01-01 16:00] VITALS: PULSE 93; RESP 22; O2SAT 94
[2022-01-01] MEDS: labetalol 5 mg/mL SDV 20mL 10 MG IVP (16:01)
[2022-01-01] MEDS: aspirin 81 mg Chew Tablet 324 MG PO (16:01)
--- NOTE | 2022-01-01 16:03 | ECG_ITS ---
[facility] Test Date: 2022-01-01 Pat Name: Dayanara Singleton Department: Room: Gender: Female Cardiac Nurse: : 1960 Requested By: Yosef Dowling Order Number: [id number] Colleen MD: Jethro De Jesus M.D. Measurements Intervals [place] Rate: 85 P: 51 AL: 175 QRS: 56 QRSD: 87 T: 66 QT: 359 QTc: 429 Interpretive Statements SINUS RHYTHM POSSIBLE LEFT ATRIAL ENLARGEMENT [-0.1mV P-WAVE IN V1/V2] POSSIBLE RIGHT VENTRICULAR CONDUCTION DELAY [RSR (QR) IN V1/V2] Compared to ECG 12/26/2020 20:40:21 No significant changes Electronically Signed On 01-02-2022 21:58:30 PHARMACY TECH by Jethro De Jesus M.D. [id number]
--- NOTE | 2022-01-01 16:04 | XRR_ITS ---
PROCEDURE INFORMATION: Exam: XR acute abdominal series Exam date and time: 01/01/2022 5:22 PM Age: 61 years old Clinical indication: Abdominal pain; Prior surgery; Surgery type: Neck; Additional info: Abd pain TECHNIQUE: Imaging protocol: Radiologic exam of the chest and abdomen Views: 2 Views. Upright and supine views. COMPARISON: CT angio chest w abd pel w con 01/12/2020 5:58 PM FINDINGS: Gastrointestinal tract: There are multiple nonspecific gas-filled bowel loops seen. These findings have decreased volume since prior examination. There is no evidence of bowel obstruction. Intraperitoneal space: Normal. No free air. Bones/joints: Postsurgical hardware is present L4-L5 with metallic transpedicular screws and rods in place. These findings are stable since prior. The bones are otherwise unremarkable Chest: The heart great vessels appear normal for projection. The lungs are expanded and clear. Surgical hardware is seen in the cervical spine. XR/XR acute abdomen series [id number] IMPRESSION: 1. Negative chest examination. 2. Multiple nonspecific gas-filled bowel loops. 3. Metallic surgical hardware lumbar, and cervical spine . 4. Otherwise negative examination
[2022-01-01 16:10] LABS: Basophils % 0.5 %; Eosinophils # 0.2 10^3/uL (0.0-0.8); Eosinophils % 2.7 %; Hematocrit 47.2 % (37.0-47.0); Hemoglobin 16.4 g/dL (11.5-15.3); Lymphocytes # 2.4 10^3/uL (0.8-4.8); Lymphocytes % 31.2 %; Mean Corpuscular HGB Conc 34.7 g/dL (30.0-36.0); Mean Corpuscular Hemoglobin 29.6 pg (28.0-34.0); Mean Corpuscular Volume 85.2 fl (81-99); Mean Platelet Volume 9.5 fL (7.4-10.4); Monocytes # 0.7 10^3/uL (0.2-0.9); Monocytes % 9.6 %; Neutrophils # 4.26 10^3/uL (1.8-7.7); Neutrophils % 55.5 %; Nucleated Red Blood Cells % 0 %; Platelet Count 377 10^3/cmm (130-400); Red Blood Count 5.54 10^6/uL (4.1-5.3); Red Cell Distribution Width 14.1 % (12.1-15.1); White Blood Count 7.7 10^3/uL (4.0-10.0)
[2022-01-01 16:29] LABS: Alanine Aminotransferase 105 U/L (0-33); Alkaline Phosphatase 87 U/L (35-105); Aspartate Amino Transferase 92 U/L (0-32); Blood Urea Nitrogen 14 mg/dL (6-20); Calcium 9.4 mg/dL (8.5-10.5); Carbon Dioxide 24 mmol/L (22-29); Chloride 90 mmol/L (98-107); Creatinine Clr Calc Pharmacy 88.3913; Globulin 2.6 g/dL (1.3-4.6); Glomerular Filtration Rate 102.3 mL/min (90-130); Glucose 106 mg/dL (65-115); Osmolality Calculated 263 mOsm/kg (285-295); Sodium 126 mmol/L (136-145); Total Bilirubin 0.4 mg/dL (0.15-1.2); Total Protein 6.6 g/dL (6.6-8.7); Troponin(5th) Baseline 8 ng/L (0-10)
[2022-01-01 16:30] VITALS: BP 159/83; PULSE 82; RESP 22; O2SAT 92
[2022-01-01 17:00] VITALS: BP 110/81; PULSE 80; RESP 14; O2SAT 93
[2022-01-01] MEDS: sodium chloride 0.9% 500 ML 999 ML IV (17:02)
[2022-01-01] MEDS: HYDROcodone-acetaminophen 5-325 mg Tablet 2 TAB PO (17:08)
[2022-01-01 17:30] VITALS: BP 180/97; O2SAT 95
--- NOTE | 2022-01-01 17:30 | ECG_ITS ---
[facility] Test Date: 2022-01-01 Pat Name: Dayanara Singleton Department: Room: Gender: Female Traffic Safety Administrator: : 1960 Requested By: Yosef Dowling Order Number: [id number] Colleen MD: Jethro De Jesus M.D. Measurements Intervals [place] Rate: 71 P: 53 MO: 192 QRS: 54 QRSD: 99 T: 62 QT: 403 QTc: 441 Interpretive Statements SINUS RHYTHM POSSIBLE RIGHT VENTRICULAR CONDUCTION DELAY [RSR (QR) IN V1/V2] Compared to ECG 01/01/2022 16:03:27 No significant changes Electronically Signed On 01-02-2022 22:23:19 SIGNAL PERSON by Jethro De Jesus M.D. [id number]
[2022-01-01] MEDS: bisacodyl 10 mg Supp PR (17:54)
== END 2022-01-01 18:06 | disposition home or self-care (01) ==
PROVIDERS: Emergency Provider Family Medicine; PCP Physician Assistant
DX: E87.1 Hypo-osmolality and hyponatremia (principal); I10 Essential (primary) hypertension; G89.18 Other acute postprocedural pain; K59.01 Slow transit constipation; E11.9 Type 2 diabetes mellitus without complications
CPT/HCPCS: 74022; 80053; 84484; 85025; 93005; 96374; 99285; J3490; J7040

== ENCOUNTER → 2022-01-18 11:16 | Outpatient (BNVA) | payer MEDICAID, SELFPAY | PROVIDERS: PCP Physician Assistant; Visit Provider Orthopaedic Surgery | DX: Z47.89 Encounter for other orthopedic aftercare (principal); Z98.1 Arthrodesis status | CPT/HCPCS: 99024 ==

== ENCOUNTER → 2022-02-08 11:02 | Outpatient (BNVA) | payer MEDICAID, SELFPAY | PROVIDERS: PCP Physician Assistant; Visit Provider Orthopaedic Surgery | DX: Z47.89 Encounter for other orthopedic aftercare (principal); Z98.1 Arthrodesis status | CPT/HCPCS: 72040; 99024; 99214 ==

== ENCOUNTER → 2022-03-17 10:54 | Outpatient (BNVA) | payer MEDICAID, SELFPAY | PROVIDERS: PCP Physician Assistant; Visit Provider Orthopaedic Surgery | DX: Z47.89 Encounter for other orthopedic aftercare (principal); Z98.1 Arthrodesis status | CPT/HCPCS: 72040; 99024; 99213 ==

== ENCOUNTER 2022-04-18 11:01 | Outpatient (CLI) | payer MEDICAID, SELFPAY ==
--- NOTE | 2022-04-18 11:11 | MM_ITS ---
WS: [id number] SCREENING DIGITAL TOMOSYNTHESIS MAMMOGRAM WITH CAD HISTORY: SCREENING COMPARISON: 12/21/2020, 12/06/2018 Bilateral CC and MLO with tomosynthesis views submitted. Synthetic mammography reviewed. Computer aid ed detection analyzed. Breast composition: There are scattered areas of fibroglandular density. No suspicious masses, microc alcifications or architectural distortion. MM/[place] [id number] IMPRESSION: BI-RADS: 1-Negative FOLLOW UP: 1 Year Follow-up
== END 2022-04-18 11:02 | disposition home or self-care (01) ==
PROVIDERS: PCP Physician Assistant; Visit Provider Physician Assistant
DX: Z12.31 Encounter for screening mammogram for malignant neoplasm of breast (principal)
CPT/HCPCS: 77063; 77067

== ENCOUNTER 2022-04-20 06:00 | Outpatient (RCR) | payer MEDICAID, SELFPAY | END 2022-05-20 23:59 | disposition home or self-care (01) | LOC: SPT 06:00 | PROVIDERS: PCP Physician Assistant; Visit Provider Orthopaedic Surgery | DX: M54.2 Cervicalgia (principal); G89.29 Other chronic pain | CPT/HCPCS: 97110; 97161 ==

== ENCOUNTER → 2022-05-05 10:24 | Outpatient (BNVA) | payer MEDICAID, SELFPAY | PROVIDERS: PCP Physician Assistant; Visit Provider Orthopaedic Surgery | DX: M54.6 Pain in thoracic spine (principal); M54.50 Low back pain, unspecified | CPT/HCPCS: 99214 ==

== ENCOUNTER 2022-05-21 06:00 | Outpatient (RCR) | payer MEDICAID, SELFPAY | END 2022-06-19 23:59 | disposition home or self-care (01) | LOC: SPT 06:00 | PROVIDERS: PCP Physician Assistant; Visit Provider Orthopaedic Surgery | DX: M54.2 Cervicalgia (principal); M54.50 Low back pain, unspecified; G89.29 Other chronic pain | CPT/HCPCS: 97110; 97530 ==

== ENCOUNTER → 2022-06-21 09:41 | Outpatient (BNVA) | payer MEDICAID, SELFPAY | PROVIDERS: PCP Physician Assistant; Visit Provider Physician Assistant | DX: Z98.1 Arthrodesis status (principal); M51.16 Intervertebral disc disorders with radiculopathy, lumbar region | CPT/HCPCS: 72040; 72070; 72100; 99213 ==

== ENCOUNTER → 2022-07-20 10:41 | Outpatient (BNVA) | payer MEDICAID, SELFPAY | PROVIDERS: PCP Physician Assistant; Referring Provider Physician Assistant; Visit Provider Anesthesiology Pain Medicine | DX: M48.062 Spinal stenosis, lumbar region with neurogenic claudication (principal); M51.16 Intervertebral disc disorders with radiculopathy, lumbar region; M47.12 Other spondylosis with myelopathy, cervical region; G62.9 Polyneuropathy, unspecified; Z98.1 Arthrodesis status | CPT/HCPCS: 99204 ==

== ENCOUNTER → 2022-07-27 14:04 | Outpatient (BNVA) | payer MEDICAID, SELFPAY | PROVIDERS: PCP Physician Assistant; Visit Provider Anesthesiology Pain Medicine | DX: M79.18 Myalgia, other site (principal); M54.2 Cervicalgia | CPT/HCPCS: 20553; G0463; J1030; J3490 ==

== ENCOUNTER → 2022-08-10 09:30 | Outpatient (BNVA) | payer MEDICAID, SELFPAY | PROVIDERS: PCP Physician Assistant; Visit Provider Anesthesiology Pain Medicine | DX: M47.12 Other spondylosis with myelopathy, cervical region (principal); M51.16 Intervertebral disc disorders with radiculopathy, lumbar region; R07.9 Chest pain, unspecified; G62.9 Polyneuropathy, unspecified; Z98.1 Arthrodesis status | CPT/HCPCS: 99215 ==

== ENCOUNTER 2022-09-02 13:06 | Outpatient (CLI) | payer MEDICAID, SELFPAY ==
--- NOTE | 2022-09-02 13:00 | MR_ITS ---
WS: [id number] MRI CERVICAL SPINE NONCONTRAST TECHNIQUE: Sagittal T1, T2 and STIR imaging. Axial T2, gradient, and fiesta imaging. CLINICAL INFORMATION: M47.12 - Other spondylosis with myelopathy, cervical region COMPARISON: MRI November 17, 2021 FINDINGS: Straightening of the normal cervical lordosis. Prior postoperative changes ACDF C4-C7. Cord signal is normal. No high-grade central canal narrowing. Postoperative fusion is new since November 17, 2021. Spinal canal narrowing has been decompressed. C2-C3: Normal. C3-C4: Mild disc bulging with osteophytic ridging. Slight effacement of ventral thecal sac. Mild face t arthropathy. Mild LEFT bony foraminal narrowing. C4-C5: Postoperative changes ACDF. Mild bilateral bony foraminal narrowing. Spinal canal is patent. C5-C6: Postoperative changes ACDF. Moderate to severe LEFT bony foraminal narrowing. Mild RIGHT bony foraminal narrowing. Spinal canal is patent. C6-C7: Postoperative changes ACDF. Moderate LEFT and mild RIGHT bony foraminal narrowing. Spinal jn l is patent. C7-T1: Spinal canal and foramen are patent. Visualized brain stem structures: Normal. Prevertebral soft tissues: Normal. MR/MR cervical spin wo con* [id number] IMPRESSION: 1. Straightening of the normal cervical lordosis with ACDF C4-C7. 2. Previously described central canal stenosis has been decompressed since the prior MRI. No significant residual stenosis today. Cord signal is normal. 3. Mild LEFT C4-C5, moderate to severe LEFT C5-C6, and moderate LEFT C6-C7 bon y foraminal narrowing.
== END 2022-09-02 13:07 | disposition home or self-care (01) ==
PROVIDERS: PCP Physician Assistant; Visit Provider Anesthesiology Pain Medicine
DX: M47.12 Other spondylosis with myelopathy, cervical region (principal); Z98.1 Arthrodesis status
CPT/HCPCS: 72141

== ENCOUNTER 2022-09-12 10:41 | Outpatient (CLI) | payer MEDICAID, SELFPAY ==
--- NOTE | 2022-09-12 11:00 | CT_ITS ---
WS: [id number] CT chest wo con [id number] HISTORY: R07.9 - Chest pain, unspecified TECHNIQUE: Axial imaging performed through the thorax. Coronal and sagittal reformats are submitted. All CT scans at [facility] use at least one of these dose optimization techniques: automated exposure control; mA and/or kV adjustment per patient size (includes targeted exams where dose is mat ched to clinical indication); or iterative reconstruction. CONTRAST: Omnipaque 350; 100 mL IV. DLP: 193.26 mGy.cm COMPARISON: 01/12/2020 Lungs and central airway: Normal. Pleura: Normal. No pleural effusion. Heart and pericardium: Normal size heart. Extensive coronary artery calcifications. Most significant calcifications in the LAD. Mediastinum and nolberto: No mediastinum or hilar adenopathy. Vessels: Mild atherosclerosis aorta. No aneurysm. Chest wall and lower neck: No soft tissue masses. Upper abdomen: Incompletely visualized cyst upper pole RIGHT kidney measures 5.2 x 4.7 cm. This was i dentified on a prior examination from 2019 which has increased in size. No adrenal mass. Moderate spl enic artery calcification. Caudate lobe cyst. Osseous structures: No destructive process. CT/CT chest wo con [id number] IMPRESSION: 1. No pulmonary mass or pneumonia. 2. Extensive coronary artery calcifications. Consider evaluation by cardiology . 3. No adenopathy. 4. Incompletely visualized RIGHT renal cyst.
== END 2022-09-12 10:42 | disposition home or self-care (01) ==
PROVIDERS: PCP Physician Assistant; Visit Provider Anesthesiology Pain Medicine
DX: R07.9 Chest pain, unspecified (principal); Z98.890 Other specified postprocedural states; I25.10 Atherosclerotic heart disease of native coronary artery without angina pectoris; N28.1 Cyst of kidney, acquired
CPT/HCPCS: 71250

== ENCOUNTER → 2022-10-10 10:32 | Outpatient (BNVA) | payer MEDICAID, SELFPAY | PROVIDERS: PCP Physician Assistant; Visit Provider Anesthesiology Pain Medicine | DX: M48.062 Spinal stenosis, lumbar region with neurogenic claudication (principal); Z98.1 Arthrodesis status; M51.16 Intervertebral disc disorders with radiculopathy, lumbar region; M47.12 Other spondylosis with myelopathy, cervical region; G62.9 Polyneuropathy, unspecified | CPT/HCPCS: 99215 ==

== ENCOUNTER → 2022-10-13 11:14 | Outpatient (BNVA) | payer MEDICAID, SELFPAY | PROVIDERS: PCP Physician Assistant; Visit Provider Physician Assistant | DX: Z98.1 Arthrodesis status (principal); R20.2 Paresthesia of skin | CPT/HCPCS: 99213 ==

== ENCOUNTER 2022-10-13 15:06 | Outpatient (CLI) | payer MEDICAID, SELFPAY | END 2022-10-13 15:07 | disposition home or self-care (01) | LOC: SPT 15:06 | PROVIDERS: PCP Physician Assistant; Visit Provider Physician Assistant | DX: Z46.89 Encounter for fitting and adjustment of other specified devices (principal); M25.532 Pain in left wrist | CPT/HCPCS: L3908 ==

== ENCOUNTER 2022-10-20 07:03 | Outpatient (CLI) | payer MEDICAID, SELFPAY ==
[2022-10-20 07:23] VITALS: BMI 60.6
--- NOTE | 2022-10-20 07:25 | NMCV_ITS ---
NM phuong perf SPECT r/s* [id number] Dayanara Singleton Age: 61 Gender: F : 1960 Exam Date: 10/20/2022 08:42 Ordering Phys: Marianne Mirza Technologist: FAIZA Wagner Exam Location: [facility] Indications: CHEST PAIN STRESS TEST Please see separate stress test report in [facility] for full findings IMAGE PROTOCOL Rest/Stress 1 Lexiscan Day Radiopharmaceutical Dose (mCi) Administration Site Administered by Rest: Tc-99m 10.6 IV FAIZA Zuiñga Sestamibi Stress:Tc-99m 32.2 IV FAIZA Zuñiga Sestamibi Rest: 20-Oct-2022 60 Discovery 630 Stress: 20-Oct-2022 30 Discovery 630 0.4mg Lexiscan. Supine position only as patient was unable to lay prone. SPECT RESULTS Technical Quality: Excellent Raw Data Analysis: Normal Image Corrections: No attenuation or motion correction applied Summed Stress Score: 4 Summed Rest Score: 0 Summed Difference Score: 4 PERFUSION FINDINGS There is a small sized area of fixed perfusion defect noted in the inferolateral wall. This is consistent with small sized area of infarct in the left circumflex artery territory. No evidence of ischemia FUNCTIONAL RESULTS (calculated via Gated SPECT) Stress Image LV EF (%): 82 Stress EDV (mL):49 TID: 0.9 Stress ESV (mL):9 FUNCTIONAL FINDINGS: There is normal left ventricular systolic function. IMPRESSIONS 1. 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 No evidence of ischemia 2. LV systolic function is normal Roland Nowak MD (Electronically Signed) Final Date: 20 October 2022 18:58 S
--- NOTE | 2022-10-20 07:25 | ECG_ITS ---
[facility] Test Date: 2022-10-20 Pat Name: Dayanara Singleton Department: Room: Gender: Female [employer]: : 1960 Requested By: Marianne Dowling Order Number: [id number] Colleen MD: Roland Nowak M.D. Interpretive Statements NAME OF STUDY: LEXISCAN SESTAMIBI STRESS TEST INDICATION: [Chest Pain] Procedure: At the baseline, the blood pressure was 147/80mmHg with a heart rate of 76 bpm. The electrocardiogram showed normal sinus rhythm, normal axis with normal ST and T's. The Lexiscan was infused over a period of 20 seconds. A total of 0.4 mg of Lexiscan was infused. The stress phase was continued for a total of 5 minutes. Heart rate was at the end of stress phase was 100 bpm and a blood pressure of 152/81 mmHg. The EKG at the peak infusion revealed normal sinus rhythm with no significant ST-T wave changes. Sestamibi was injected 20 seconds after the Lexiscan infusion. Blood pressure at the end of recovery phase was 155/83 mmHg with a heart rate of 94 bpm. Conclusion: 1. Normal EKG response to Lexiscan infusion 2. No Lexiscan induced chest pain or cardiac arrhythmia. 3. Normal blood pressure and heart rate response. 4. Sestamibi/sestamibi perfusion scan pending; see separate report. Electronically Signed On 11-01-2022 10:46:57 CDT by Roland Nowak M.D. [email or web address]
[2022-10-20] MEDS: regadenoson 0.4 Mg/5 ml Syringe IVP (09:29)
[2022-10-20 09:54] VITALS: BP 143/56; PULSE 82
== END 2022-10-20 07:04 | disposition home or self-care (01) ==
LOC: CDL 07:03
PROVIDERS: PCP Physician Assistant; Visit Provider Physician Assistant
DX: R07.9 Chest pain, unspecified (principal)
CPT/HCPCS: 36415; 78452; 93017; 96374; A9500; J2785

== ENCOUNTER → 2022-10-27 10:27 | Outpatient (BNVA) | payer MEDICAID, SELFPAY | PROVIDERS: PCP Physician Assistant; Visit Provider Orthopaedic Surgery | DX: M47.12 Other spondylosis with myelopathy, cervical region; M43.16 Spondylolisthesis, lumbar region; M48.062 Spinal stenosis, lumbar region with neurogenic claudication; Z98.890 Other specified postprocedural states | CPT/HCPCS: 72050; 72100; 99214 ==

== ENCOUNTER → 2022-10-31 13:34 | Outpatient (BNVA) | payer MEDICAID, SELFPAY | PROVIDERS: PCP Physician Assistant; Visit Provider Internal Medicine | DX: R07.9 Chest pain, unspecified (principal); Z86.718 Personal history of other venous thrombosis and embolism; I10 Essential (primary) hypertension; E78.5 Hyperlipidemia, unspecified; Z87.891 Personal history of nicotine dependence; E11.9 Type 2 diabetes mellitus without complications | CPT/HCPCS: 93005; 99204 ==

== ENCOUNTER 2022-11-09 14:30 | Outpatient (CLI) | payer MEDICAID, SELFPAY ==
--- NOTE | 2022-11-09 14:45 | USCV_ITS ---
Dayanara Singleton Age: 61 Gender: F : 1960 Exam Date: 11/09/2022 14:44 Ordering Phys: Roland Nowak M.D ([email or web address]) Technologist: Maureen Amaral [place] [facility] [place]: chest pain and abnormal previous studies BP: 157 / 80 HR: 87 Rhythm: Sinus Technical Quality: Adequate MEASUREMENTS (Male / Female) Normal Values 2D ECHO LV Diastolic Diameter PLAX 2.7 cm 4.2 - 5.9 / 3.9 - 5.3 cm LV Systolic Diameter PLAX 1.1 cm LV Chamber Size 3.2 cm IVS Diastolic Thickness 0.8 cm 0.6 - 1.0 / 0.6 - 0.9 cm IVS Systolic Thickness 0.9 cm LVPW Diastolic Thickness 1.0 cm 0.6 - 1.0 / 0.6 - 0.9 cm LVPW Systolic Thickness 0.9 cm RV Chamber Size 2.2 cm LVOT Diameter 2.1 cm LV Ejection Fraction 2D Teich 90.0 % LV Ejection Fraction MOD 2C 52.7 % LV Ejection Fraction 2C AL 52.5 % LA Diameter 2.3 cm LA Width 2.5 cm LA Height 2.4 cm RA Width 2.6 cm RA Height 2.8 cm Aorta at Sinotubular Diameter 3.0 cm IVC Diameter 1.0 cm M-MODE Aortic Annulus Diameter 2.5 cm LA Ao Ratio MM 1.1 MV E Point Septal Separation 0.4 cm DOPPLER AV Peak Velocity 118.0 cm/s LVOT Peak Velocity 96.0 cm/s AV Area Cont Eq vti 3.0 cm squared AV Area Cont Eq pk 2.8 cm squared MV Area PHT 6.9 cm squared Mitral E to A Ratio 0.6 MV E' Velocity 38.0 cm/s Mitral E to MV E' Ratio 9.7 Mitral E to LV E' Lateral Ratio 8.8 Mitral E to LV E' Septal Ratio 10.8 TR Peak Velocity 129.0 cm/s TR Peak Gradient 6.7 mmHg TR Mean Velocity 94.9 cm/s TR Mean Gradient 4.0 mmHg TR Velocity Time Integral 35.6 cm TV Peak E Velocity 37.0 cm/s Right Atrial Pressure 3.0 mmHg Pulmonary Artery Systolic Pressu 9.7 mmHg RV Acceleration Time 0.2 s RV Ejection Time 0.3 s RV AcT/ET 0.5 FINDINGS Left Ventricle Left ventricle is normal in size. LV systolic function is normal with EF of 55 to 60%. No regional wall motion abnormalities are seen. Grade 1 diastolic dysfunction. Right Ventricle Normal in size and function Right Atrium Normal in size Left Atrium Normal in size Mitral Valve Mild mitral valve calcification. Aortic Valve Structurally normal aortic valve. No significant stenosis or regurgitation. Tricuspid Valve Mild tricuspid regurgitation. Insufficient TR jet to calculate RVSP Pulmonic Valve Not well-visualized Pericardium Normal Aorta Normal in size IVC Appears to be normal CONCLUSIONS LV systolic function is normal with EF of 55 to 60%. Grade 1 diastolic dysfunction. Mild tricuspid regurgitation No comparison studies are available Roland Nowak MD (Electronically Signed) Final Date: 13 November 2022 14:49 S
== END 2022-11-09 14:31 | disposition home or self-care (01) ==
PROVIDERS: PCP Physician Assistant; Visit Provider Internal Medicine
DX: R07.9 Chest pain, unspecified (principal); R06.02 Shortness of breath; R93.1 Abnormal findings on diagnostic imaging of heart and coronary circulation; I07.1 Rheumatic tricuspid insufficiency
CPT/HCPCS: 93306

== ENCOUNTER 2022-11-22 06:55 | Outpatient (CLI) | payer MEDICAID, SELFPAY ==
--- NOTE | 2022-11-22 07:15 | MR_ITS ---
WS: [id number] MRI LUMBAR SPINE NONCONTRAST HISTORY: Lumbar pain COMPARISON: 11/17/2021 TECHNIQUE: Sagittal and axial multisequence imaging is submitted. Prior cervical fusion. Normal posterior lumbar alignment. Very slight increase in the lumbar lordosis. Posterior lumbar fusi on at L4-5 with interbody fusion. Small endplate osteophytes at all levels in the lumbar spine. Disc spaces are mildly narrowed and miroslava iccated. Conus terminates normally at L1. L1-L2: Mild facet arthritis. No stenosis. L2-L3: Mild annular disc bulging and facet arthritis. No significant stenosis. There is mild encroach ment upon the RIGHT foramen. L3-L4: Mild annular disc bulging with effacement of the ventral thecal sac. Mild central stenosis wit h mild impingement upon the traversing L4 nerve roots. Mild facet arthritis. Mild bilateral foraminal stenosis. No significant progression. L4-L5: Mild encroachment upon the ventral thecal sac. Mild clumping of the nerve roots. Mild bilatera l foraminal stenosis very similar to the prior examination. Slightly greater on the LEFT than the RIG HT. L5-S1: Mild annular disc bulging with a RIGHT central to paracentral disc protrusion. Disc protrusion is encroaching and displacing the RIGHT traversing S1 nerve root in the subarticular recess. Similar to the prior exam. Mild bilateral foraminal stenosis, RIGHT greater than LEFT. Incompletely visualized cystic mass in the RIGHT kidney measures 4.9 x 4.1 cm. IMPRESSION: 1. Status post posterior lumbar fusion at L4-5 with interbody spacer. 2. Small RIGHT central to paracentral disc protrusion at L5-S1 contacts and slightly displaces the tr aversing S1 nerve root. Similar to the prior study. 3. Mild bilateral foraminal stenosis at L5-S1, RIGHT greater than LEFT. 4. Mild disc impingement upon the traversing L4 nerve roots similar to the prior study. 5. Mild bilateral foraminal stenosis at L4-5, LEFT greater than RIGHT.
--- NOTE | 2022-11-22 08:00 | MR_ITS ---
WS: [id number] MRI PELVIS WITHOUT CONTRAST. COMPARISON: None Multiplanar, multisequence imaging is performed without contrast. History: Chronic back pain that radiates to both legs. Posterior lumbar fusion noted in the lower lumbar spine. Posterior fusion screws at L5 are identified . There is increased T2 signal surrounding the screws but I believe in part this is artifact. On the T1 sequence there is no low signal within the pelvis or vertebral bodies to suggest edema. Normal augie earance of the SI joints. No fractures. No destructive bone process. There is no free fluid or adenop athy in the pelvis. Visualized urinary bladder is normal. No adenopathy along the inguinal regions. N o soft tissue abnormality. IMPRESSION: 1. No destructive bone process or acute findings within the pelvis. 2. Negative SI joints. 3. Symmetric appearance of the soft tissues and muscles of the pelvis.
== END 2022-11-22 06:56 | disposition home or self-care (01) ==
LOC: RAD 06:57
PROVIDERS: PCP Physician Assistant; Visit Provider Orthopaedic Surgery
DX: M43.16 Spondylolisthesis, lumbar region (principal); Z98.1 Arthrodesis status; M51.27 Other intervertebral disc displacement, lumbosacral region; M48.07 Spinal stenosis, lumbosacral region
CPT/HCPCS: 72148; 72195

== ENCOUNTER → 2022-11-24 14:22 | Outpatient (BNVA) | payer MEDICAID, SELFPAY | PROVIDERS: PCP Physician Assistant; Visit Provider Anesthesiology Pain Medicine | DX: M54.12 Radiculopathy, cervical region (principal) | CPT/HCPCS: 62321; J1100 ==

== ENCOUNTER → 2022-12-08 13:29 | Outpatient (BNVA) | payer MEDICAID, SELFPAY | PROVIDERS: PCP Physician Assistant; Visit Provider Anesthesiology Pain Medicine | DX: M54.12 Radiculopathy, cervical region (principal) | CPT/HCPCS: 62321; J1100 ==

== ENCOUNTER → 2022-12-22 10:25 | Outpatient (BNVA) | payer MEDICAID, SELFPAY | PROVIDERS: PCP Physician Assistant; Visit Provider Anesthesiology Pain Medicine | DX: Z98.1 Arthrodesis status; M51.16 Intervertebral disc disorders with radiculopathy, lumbar region; M47.12 Other spondylosis with myelopathy, cervical region; G62.9 Polyneuropathy, unspecified | CPT/HCPCS: 99213 ==

== ENCOUNTER → 2023-02-07 13:12 | Outpatient (BNVA) | payer MEDICAID, SELFPAY | PROVIDERS: PCP Physician Assistant; Visit Provider Orthopaedic Surgery | DX: M48.062 Spinal stenosis, lumbar region with neurogenic claudication | CPT/HCPCS: 99214 ==

== ENCOUNTER → 2023-02-27 09:11 | Outpatient (BNVA) | payer MEDICAID, SELFPAY | PROVIDERS: PCP Physician Assistant; Referring Provider Physician Assistant; Visit Provider Psychiatry & Neurology Neurology | DX: M79.641 Pain in right hand (principal); M79.642 Pain in left hand; G62.9 Polyneuropathy, unspecified; M62.541 Muscle wasting and atrophy, not elsewhere classified, right hand; M62.542 Muscle wasting and atrophy, not elsewhere classified, left hand | CPT/HCPCS: 99203 ==

== ENCOUNTER → 2023-02-28 09:14 | Outpatient (BNVA) | payer MEDICAID, SELFPAY | PROVIDERS: PCP Physician Assistant; Visit Provider Psychiatry & Neurology Neurology | DX: M79.641 Pain in right hand (principal); M79.642 Pain in left hand; R29.898 Other symptoms and signs involving the musculoskeletal system; R20.2 Paresthesia of skin; M47.12 Other spondylosis with myelopathy, cervical region; G62.9 Polyneuropathy, unspecified; G56.00 Carpal tunnel syndrome, unspecified upper limb | CPT/HCPCS: 95910; 95911; 95912 ==

== ENCOUNTER → 2023-03-09 10:01 | Outpatient (BNVA) | payer MEDICAID, SELFPAY | PROVIDERS: PCP Physician Assistant; Visit Provider Family Medicine | DX: Z01.818 Encounter for other preprocedural examination (principal) | CPT/HCPCS: 80053; 81003; 83036; 85025; 87086 ==

== ENCOUNTER 2023-03-17 08:20 | Observation (INO) | payer MEDICAID, SELFPAY ==
[2023-03-17] VITALS (18 sets, daily range): BP systolic 74–155; BP diastolic 47–89; PULSE 70–93; RESP 14–18; TEMP 36.1–36.9; O2SAT 90–100; BMI 27.1; BMI 28.0
--- NOTE | 2023-03-17 | XR_ITS ---
WS: [id number] XR lumbar spine 1V [id number] REASON FOR EXAM: lumbar decompression, or pic FINDINGS: Surgical instrument overlying the left lateral disc space at L3-L4. Previous posterior fusion with bilateral pedicle screws, interconnecting rods, and interbody fusion d evice at L4-L5. IMPRESSION: Lumbar level localization and surgery.
[2023-03-17] MEDS: sodium chloride 0.9% 1,000 ML 30 ML IV (06:18)
[2023-03-17] MEDS: scopolamine 1.5 Patch 1 PATCH TRANSDERMA (06:20)
--- NOTE | 2023-03-17 06:29 | W.PM.OPSUD ---
Surgery/Procedure H&P Update DATE OF PROCEDURE: March 17, 2023 DATE H&P PERFORMED: 03/09/23 H&P UPDATE INFORMATION: I have reviewed H&P completed within last 30 days, I have examined patient prior to procedure and No changes to prior documentation PREOP DIAGNOSIS: Lumbar stenosis with neurogenic claudication PLANNED PROCEDURE: Operation Date: 03/17/23 07:00 Proposed Procedures p Lumbar Spine Decompression / L3-4 minimally based decompression standing on the left side. Bilaterally(Bilateral) - Colin Ugarte DO
[2023-03-17] MEDS: ceFAZolin 2,000 MG in sodium chloride 0.9% (plus) 50 ML 100 MG IV ×3 (06:58→17:25)
--- NOTE | 2023-03-17 07:08 | ANES.PREANE2 ---
Pre-Anesthetic Assessment Height/Weight: Height 1.6 m Weight 69.4 kg Temp Pulse Resp BP Pulse Ox O2 Del Method 97.0 F L 77 18 155/89 97 Room Air 03/17/23 06:05 03/17/23 06:05 03/17/23 06:05 03/17/23 06:05 03/17/23 06:05 03/17/23 06:06 Preop Diagnosis: Lumbar stenosis with neurogenic claudication Operation Date: 03/17/23 07:00 Proposed Procedures p Lumbar Spine Decompression / L3-4 minimally based decompression standing on the left side. Bilaterally(Bilateral) - Colin Ugarte DO Familial anesthetic complications: none Was Beta Avinash taken within 24 hours: Yes Was Clonidine taken within 24 hours: N/A Last intake: Intake Last Liquid Date 03/16/23 Last Liquid Time 18:00 Last Solid Date 03/16/23 Last Solid Time 18:00 Social Tobacco and No alcohol Exam alert, oriented x 3 and regular rate & rhythm Airway Submandibular: within normal limits Cervical ROM: within normal limits Mallampati: Class II Dentition: chipped CV/HEM Hypertension Metabolic Hyperlipidemia Musc/skel Lower Back Pain and Osteoarthritis/DJD Neuropsych Anxiety, Depression and Neuropathy Anesthetic Plan ASA status: 3 Anesthesia: General Medications/Allergies Home Medications Medication Instructions Recorded Confirmed Last Taken Type quetiapine 100 mg tablet (Seroquel) 100 mg PO BEDTIME 05/31/19 03/16/23 03/16/23 History metoprolol succinate 100 mg 100 mg PO DAILY 12/16/19 03/16/23 03/16/23 History tablet,extended release 24 hr gabapentin 300 mg capsule 300 mg PO TID 11/18/21 03/16/23 03/16/23 History baclofen 5 mg tablet 5 mg PO TID 02/27/23 03/16/23 03/16/23 History atorvastatin 40 mg tablet 40 mg PO DAILY 03/09/23 03/16/23 03/16/23 History Allergies Allergy/AdvReac Type Severity Reaction Status Date / Time meloxicam Allergy ADR-Abdominal Verified 03/16/23 10:01 Pain lorazepam AdvReac Intermediate ADR-Confusi Verified 03/16/23 10:01 on Current Medications Generic Name Dose Route Start Last Admin Trade Name Freq PRN Reason Stop Dose Admin Sodium Chloride 1,000 mls @ 30 mls/hr 03/17/23 06:00 03/17/23 06:18 Sodium Chloride 0.9% IV 03/18/23 05:59 30 mls/hr .Q24H DANILO Administration PFSH Anesthesia Medical History Colon polyps Diabetes Spondylolisthesis at L4-L5 level History of colon polyps Esophagitis Spondylisthesis Lumbar stenosis with neurogenic claudication Intervertebral disc disorder with radiculopathy of lumbosacral region Pain due to internal orthopedic prosthetic devices, implants and grafts, initial encounter This was addressed with the revision total knee arthroplasty involving exchange of the tibial insert with synovectomy. Hypertension Anxiety Depression Surgical History H/O spinal fusion 01/05,, L4 laminectomy History of total knee arthroplasty Right History of total right knee replacement Hx of inguinal hernia repair Hx of umbilical hernia repair Hx of colonoscopy with polypectomy (09/22/21) diverticulosis and polyps H/O tubal ligation Family History Mother Cancer Lung Father CAD (coronary artery disease) Stroke FH: brain aneurysm Brother Cancer Denies family history of Anesthesia complication Bleeding disorder Social History Smoking and tobacco/nicotine status: never used tobacco/nicotine Alcohol intake: current Substance/Drug Use: never Lives independently: No Household members: none Housing: House Marital status: Legally service: No Current occupational status: disabled Data Anesthesia Cardiac Studies: Echocardiogram 11/09/22 Sestamibi Stress Test (Cardiology) 10/20/22
[2023-03-17] MEDS: lidocaine-epi 2% 20 mL INJ INJECTION (07:38)
[2023-03-17] MEDS: thrombin 5,000 unit SDV 5000 UNIT XX (07:39)
--- NOTE | 2023-03-17 08:11 | PM.OP ---
Operative Report Date of procedure: March 17, 2023 Pre-op diagnosis: Lumbar stenosis with neurogenic claudication Post-op diagnosis: same Procedure done: L3-4 laminectomy with partial facetectomies Surgeon: Colin Ugarte DO Estimated blood loss (mL): 5 Procedure: L3-4 laminectomy with partial facetectomies Patient is brought to the operative suite. After undergoing anesthesia they are placed in the prone position. All areas of impingement are well padded. Patient is then prepped and draped in the normal sterile fashion. A skin incision is made over the L3/4 level. This is confirmed under c-arm guidance. A series of dilators are passed and the tubular retractor is docked on the L3 lamina. A bovie is used to clear the soft tissue off the lamina and the L 3/4 facet joint. A high speed victorino is then used to perform the laminectomy and take down the medial aspect of the L 3/4 facet joint. A kerrison rongeure was then used to take down the remaining lamina and smooth the edged of the laminectomy up to the point where the ligamentum flavum attaches. Attention was then brought to the medial aspect of the facet joint. The remaining medial aspect of the superior and inferior aspect of the facet joint were taken down with the kerrison from the pedicle of L3 to L 4. The facet joint had significant hypertrophy. Attention was then brought to the Ligamentum Flavum. The ligament was taken down from the lamina of L3 to L4 and out medially to the remaining facet joint. The ligament was thick. The dura was then exposed. The dura was in good repair. The L3 nerve was then traced with a curette out the L3/4 foramen and found to be adequately decompressed. The L4 nerve was traced with a curette around the L4 pedicle. The lateral recess was opened with a kerrison helping to further decompress the L4 nerve. The tubular retractor was then tilted to the contralateral side. The bovie was used to take down the soft tissue on the spinous process. The high speed victorino was used to take down the spinous process and then the contralateral lamina of L3. The kerrison rongeur was used to take down the remaining lamina to the point where the ligamentum flavum attached and the ligamentum flavum was taken down from L3 to L4. The kerrison rongeur was then used to reach across and take down the medial aspect of the contralateral L3/4 facet joint.The currete was used to trace the contralateral L4 nerve out the L3/4 foramen to make sure it was decompressed adequatesly and the L4 was traced around the L4 pedicle. The lateral recess was opened further with the kerrison to ensure the L4 is adequately decompressed. Wound is then irrigated copiously with saline and surgiflo is used to stop any bleeding. The tubular retractor is removed and the wound is closed with vicryl and monocryl suture. Glue is then used to protect the wound. A sterile dressing is then placed. Patient was then placed in the supine position and transferred to the PACU in stable condition.
[2023-03-17] MEDS: ePHEDrine 50 mg/mL Inj 25 MG IM (08:29)
[2023-03-17] MEDS: baclofen 10 mg Tablet 5 MG PO ×3 (09:16→20:04)
[2023-03-17] MEDS: gabapentin 300 mg Capsule PO ×3 (09:17→20:04)
[2023-03-17] MEDS: metoprolol succinate ER (24 HR) 100 mg Tablet PO (09:17)
[2023-03-17] MEDS: docusate sodium 100 mg Capsule PO ×2 (09:17→17:24)
[2023-03-17] MEDS: atorvastatin 40 mg Tablet PO (09:17)
[2023-03-17] MEDS: HYDROcodone-acetaminophen 5-325 mg Tablet PO ×4 (09:18→21:31)
[2023-03-17] MEDS: ketorolac 30 mg/mL INJ IVP ×2 (09:20→19:11)
[2023-03-17] MEDS: lactated ringers 1,000 ML 90 ML IV ×2 (09:39→20:06)
--- NOTE | 2023-03-17 12:21 | ANE.PACU2 ---
Inpatient post-anesthesia follow up: Airway intact: Yes Vital signs: Temperature 97.8 F Pulse Rate 87 Respiratory Rate 18 Blood Pressure 117/76 Pulse Oximetry 91 Oxygen Delivery Me thod Room Air Oxygen Flow Rate 6 Fraction of Inspir ed Oxygen Hydration adequate: Yes Nausea and vomiting: No Pain level: 3 Mental status: Baseline
[2023-03-17] MEDS: quetiapine 100 mg Tablet PO (20:04)
[2023-03-18] VITALS: BP 101/56; PULSE 65; RESP 17; TEMP 36.8; O2SAT 91
[2023-03-18] MEDS: ceFAZolin 2,000 MG in sodium chloride 0.9% (plus) 50 ML 100 MG IV (01:31)
[2023-03-18 04:00] VITALS: BP 123/70; PULSE 83; RESP 17; TEMP 36.8; O2SAT 93
[2023-03-18 05:00] VITALS: BMI 30.5
[2023-03-18] MEDS: ketorolac 30 mg/mL INJ IVP (05:59)
[2023-03-18] MEDS: lactated ringers 1,000 ML 90 ML IV (06:00)
[2023-03-18] MEDS: HYDROcodone-acetaminophen 5-325 mg Tablet PO (07:45)
[2023-03-18 08:20] VITALS: BP 114/67; PULSE 18; RESP 92; TEMP 36.5; O2SAT 92
[2023-03-18] MEDS: gabapentin 300 mg Capsule PO (09:19)
[2023-03-18] MEDS: atorvastatin 40 mg Tablet PO (09:19)
[2023-03-18] MEDS: docusate sodium 100 mg Capsule PO (09:19)
[2023-03-18] MEDS: baclofen 10 mg Tablet 5 MG PO (09:19)
[2023-03-18] MEDS: metoprolol succinate ER (24 HR) 100 mg Tablet PO (09:20)
--- NOTE | 2023-03-18 11:25 | P.DS_ITS ---
Discharge Providers Date of Admission: 03/17/23 08:20 Date of Discharge: March 18, 2023 Attending Provider at Admission: Colin Ugarte DO Attending Provider at Discharge: Colin Ugarte DO Primary Care Provider: Marianne Mirza Reason for Visit Reason for Visit: M48.02 Physical Exam Narrative: Patient currently resting in bed pain controlled at this point patient's been up with physical therapy several times physical therapist that she did very well. Discharge Data Studies Completed and Pending Completed Studies During Hospitalization Category Date Time Status XR lumbar spine 1V [id number] Routine Exams 03/17/23 Completed Vitals Last Vital Signs Temp 97.7 F 03/18/23 08:20 Pulse 18 L 03/18/23 08:20 Resp 92 H 03/18/23 08:20 BP 114/67 03/18/23 08:20 Pulse Ox 92 03/18/23 08:20 O2 Del Method Room Air 03/18/23 08:20 O2 Flow Rate 6 03/17/23 08:12 Discharge Plan Discharge Patient Disposition: Home Condition: Stable Prescriptions: New hydrocodone-acetaminophen 5-325 mg tablet 1 - 2 tab PO .Q4-6H Qty: 40 0RF hydrocodone-acetaminophen 5-325 mg tablet 1 - 2 tab PO .Q4-6H Qty: 40 0RF hydrocodone-acetaminophen 5-325 mg tablet 1 - 2 tab PO .Q4-6H Qty: 40 0RF hydrocodone-acetaminophen 5-325 mg tablet 1 - 2 tab PO .Q4-6H Qty: 40 0RF Continued quetiapine [Seroquel] 100 mg tablet 100 mg PO BEDTIME baclofen 5 mg tablet 5 mg PO TID atorvastatin 40 mg tablet 40 mg PO DAILY gabapentin 300 mg capsule 300 mg PO TID metoprolol succinate 100 mg Tablet Extended Release 24 Hr 100 mg PO DAILY Discharge Orders: Discharge Order (Routine); Ordered 03/18/23 Ordered By: Colin Ugarte Discharge Diet: Advance as tolerated Discharge Activity: Limit activity as instructed Patient Instructions: Opioid Safety Activity Restrictions/Additional Instructions: Thank you for [facility] for your care! The following is a list of instructions, from your provider, to follow upon your discharge to ensure you have the optimal recovery from your recent injury orsurgery. Follow-up care is a talamantes part of your treatment and safety. Be sure to make and go to all appointments, and call your doctor if you are having problems. If you do not already have a follow-up appointment made, call Dr. Ugarte office in the next 1-3 days to make follow up appointment for 2 weeks at [phone]. It is also a good idea to know your test results and keep a list of the medicines you take. Medications will be prescribed for you at your provider's discretion. These medications are to be used as instructed; if they are taken more often that prescribed they will not be refilled early and in most cases will not be refilled at all. > When a refill is needed,you should contact ana santos 2-3 business days before your prescription runs out. Medications will NOT be refilled by merchandising execution manager providers after hours! > Many pain medications contain Tylenol (Acetaminophen). Do not consume more than 4,000 mg of Tylenol per day in total with any combination ofmedications. > Pain medications can cause constipation. Please use an over the counter stool softener as directed, while taking pain medications. Consulty our local pharmacist with questions or recommendations on stool softeners. If constipation persists, contact our office or your primary care provider. > While under our care,you are not to receive pain medications or other controlled substances from any other provider unless our office is notified and approves. Any attempts to do so will result in refusal to prescribe any further pain medications and possible dismissal from our practice. ? Your wound and/or dressing should remain clean and dry for 2 days after surgery. On postoperative day 2 (48 hours after your surgery) the dressing (if present) should be removed and it is okay to shower and get the incision wet. Pad dry afterwards. No further dressing should be required from that point on. Do not put any creams or ointments on theincision > It is normal for there to be a small amount of discharge (bloody or blood tinged) present from a surgical wound for the first 1-3days. > The wound should be examined twice a day for signs of infection. Mild redness or bruising is to be expected but indications that an infection maybe starting would include; An increase in redness, swelling, or discharge, a foul odor present around the incision, and/or a fever greater than 101 ?F ? Showering is permitted, however we ask that you do not take a bath, sit in a whirlpool / Jacuzzi, or go swimming for 1 month. For only the first 2 days after surgery, lt wilt be necessary for you to cover your wound/dressing with plastic and tape to keep it dry. ? Walking is essential for the healing process after surgery. We would like you to slowly advance your walking. This should be done on relatively flat clear ground (inside or out) or can be done on a treadmill. Remember this goal does not have to happen all at once, slowly increase your distance and duration. This can be broken into more more than one walk per day as tolerated. Patients who walk as directed after surgery rarely require Physical Therapy. In the unlikely event this issue arises your provider will direct hospital staff to make the appropriate arrangements. ? No lifting over 5 pounds {a gallon of milk) or bending/twisting until further notice. Each of these activities places an unnecessary amount of stress onto the body and can impede the delicate healing process. > Instead of bending at the waist, keep your back straight and bend at the knees. > Instead of twisting your torso, keep your back straight and turn your entire body with your feet. ? You may sleep in any position which makes you comfortable. Many patients find comfort sleeping in a reclining chair. It is not abnormal to have difficulty sleeping for the first several weeks following your surgery. We recommend trying Benadry! or Tylenol PM as directed to help with your sleeping difficulties. Both medications are over the counter and available withoutprescription. ? NO SMOKING!!! Smoking dramatically increases the probability of developing postoperative wound infections. ? Common complaints after lumbar and/or thoracic spine surgery include, but are not limited to: numbness and/or tingling in the legs, pain around the incision and surrounding tissues, muscle spasms, or stiffness of the middle to low back. Contact our office if these symptoms persist or if an acute change occurs. ? No driving for the first 3-5days, and not while taking narcotics until seen at your follow-up appointment and cleared. There are no restrictions for riding on short trips, however if you take a longer trip, arrangements should be made to make regular stops to get out of the vehicle and stretch . ? Swelling is an unfortunate event that will take place with any surgery and is the primary source of your postoperative discomfort. While walking and regular approved activities helps control inflammation, there are additional steps you can take to minimizeswelling. > Place ice over the surgical site and surrounding tissue for twenty minutes, followed by applying a low/medium heat (heating pad) for an additional twenty minutes every 1-2 hours as needed for painrelief. > You may use of over the counter anti-inflammatory medications (Ibuprofen, Motrin, Aleve, Advil, etc) as directed on the package label. These types of medicines wm significantly reduce the amount of discomfort you experience after surgery from swelling. It should be noted that if you have and allergy to any of these medications, or a history of ulcers or kidney disease you should consult you primary care provider prior to starting these medications. Discharge Attestations Time Spent in Discharge Care*: less than 30 min Status at Discharge: Cognitive status at discharge: cognitively intact , Behavioral status at discharge: cooperative , Quality Metrics Clinical Quality Measures [ No reported AMI, CVA or VTE this stay] Coding Level of Care Code Acute Code for Chg Wilmer
[2023-03-18 11:33] VITALS: BP 130/66; PULSE 85; RESP 18; TEMP 36.5; O2SAT 93
--- NOTE | 2023-03-18 12:40 | PC.CHAP ---
Pastoral Care Encounter/Spiritual Assessment Type of Contact [] Declined education spec visit [] Patient/Family/Request visit [] Outpatient visit [] Follow-up visit [] Physician referral [] Code/Alert [x] Routine visit [] Staff referral [] Actively dying [] Patient sleeping [] Family support [] [] Out of room [] Palliative care [] [] Receiving care in room [] Pre-surgical visit [] Trauma [] Long length of stay [] ICU visit [] Other: Relational/Emotional Strength [x] Patient feels connected with others/family/visitors/staff [] Distress [] Loneliness/isolation [] Abandonment Spirituality of Patient [x] Person of Mirlande [] Attends Episcopalian of their Mirlande [] Believes in Prayer [] Reads Bible or Jehovah'S Witness materials [] There are Spiritual issues to be addressed Basic Combatant Swimmer Interventions [x] Prayer [] Active listening [] Non-anxious presence [] Spiritual/emotional support [] Crisis/trauma care [] Spiritual counseling [] Bereavement support [] Provided bereavement packet [] Provided Bible/devotional materials [] Provided toy/stuffed animal, coloring book to patient or family member [] Provided Communion [] Anointing/[place] [] Salvation [] Completed spiritual assessment [] Other: Impact on Illness or Injury [] Angry [] Fearful [] Anxious [] Often cries [] Exhaustion [] Unable to work [] Unable to attend muslim [] Unable to walk/stand [] Unable to read [] Unable to drive [] Unable to eat/drink [] Unable to sleep [] Unable to be with family [] Patient intubated [] Other: Summary prayed with patient Time spent with patient 3
[2023-03-18 14:01] VITALS: BP 130/66; PULSE 85; RESP 18; TEMP 36.5; O2SAT 93
== END 2023-03-18 13:30 | disposition home or self-care (01) ==
LOC: MEDSURG 08:21
PROVIDERS: Admitting Provider Orthopaedic Surgery; PCP Physician Assistant; Visit Provider Orthopaedic Surgery
PROC: (CPT 63005; principal; 2023-03-17 07:00)
DX: M48.062 Spinal stenosis, lumbar region with neurogenic claudication (principal); I10 Essential (primary) hypertension; E78.5 Hyperlipidemia, unspecified; E11.40 Type 2 diabetes mellitus with diabetic neuropathy, unspecified
CPT/HCPCS: 63047; 72020; 76000; 97116; 97161; 97530; G0378; J0690; J1100; J1885; J2371; J2405; J2704; J2710; J3010; J3490; J7030; J7120

== ENCOUNTER → 2023-03-31 10:05 | Outpatient (BNVA) | payer MEDICAID, SELFPAY | PROVIDERS: PCP Physician Assistant; Visit Provider Orthopaedic Surgery | DX: Z47.89 Encounter for other orthopedic aftercare (principal); G89.18 Other acute postprocedural pain | CPT/HCPCS: 99024 ==

== ENCOUNTER → 2023-04-14 08:53 | Outpatient (BNVA) | payer MEDICAID, SELFPAY | PROVIDERS: PCP Physician Assistant; Visit Provider Orthopaedic Surgery | DX: Z47.89 Encounter for other orthopedic aftercare | CPT/HCPCS: 99024 ==

== ENCOUNTER 2023-04-21 12:14 | Emergency (ER) | payer MEDICAID, SELFPAY ==
[2023-04-21 12:17] VITALS: BP 150/81; PULSE 92; RESP 18; TEMP 36.8; O2SAT 92; BMI 27.4
[2023-04-21 12:24] VITALS: BP 150/81; PULSE 92; RESP 18; O2SAT 92
--- NOTE | 2023-04-21 12:41 | USCV_ITS ---
Dayanara Singleton Age: 62 Gender: F : 1960 Exam Date: 04/21/2023 12:05 Ordering Phys: Shaun Hidalgo Technologist: Kye Kelley Exam [place] [facility] [place] Indication: pain and swelling PROCEDURES: Venous duplex imaging was performed in only the left lower extremity. The following venous structures were evaluated: common femoral vein, profunda vein, proximal portion of the greater saphenous vein, superficial femoral vein, and the popliteal vein. In addition, the posterior tibial and peroneal trunk were evaluated. Serial compression, augmentation maneuvers, and spectral Doppler flow evaluation were performed. FINDINGS: Normal 2-D Doppler and augmentation and compressibility throughout the lower extremity venous structures. Additional imaging through the proximal calf veins also reveals no thrombus. Limited evaluation of the greater saphenous vein is patent with no thrombus. CONCLUSIONS No DVT left lower extremity. Dr. Jessica Juárez DO (Electronically Signed) Final Date: 21 April 2023 13:36 S
--- NOTE | 2023-04-21 12:49 | ED_ITS ---
HPI - Extremity Problem 2 General: Chief complaint: Extremity Injury, Lower Stated complaint: leg pain Time Seen by Provider: 04/21/23 12:17 History of Present Illness: 62-year-old female presents the emergenc y department chief complaint of having left calf pain patient endorses that she stopped taking her Neurontin 3 days ago she did not like how the medication she has been taking which she wanted to reduce it patient reports she is stopped cold turkey in which she was taking this medication several times a day. Patient Dors that she has bilateral numbness now her lightening shooting type pain is going down the left leg reports no muscular weakness reports no bowel or bladder issues or incontinence. Patient does not endorse any recent falls or injury does report recently over the past 1 to 2 months she has had a recent third lumbar surgery L4-L5 patient does not endorse she is recently followed up with her neurologist or spine doctor. Patient presents to the ER for further assessment and management. Associated symptoms: Deny chest pain, fever(s) or rash Review of Systems 2 General: Reports: 10 or more systems reviewed and unremarkable except in HPI and below Const: Denies: fever(s), chills, fatigue or malaise Eyes: Denies: change in vision or blurry vision Card: Denies: chest pain or palpitations Resp: Denies: dyspnea or productive cough GI: Denies: abdominal pain, nausea or vomiting : Denies: flank pain Musc: Reports: extremity pain and extremity swelling Skin/Breast: Denies: rash or pruritus Neuro: Reports: numbness in extremities; Denies: headache(s), behavioral changes, Slurred speech present, difficulty communicating thoughts, seizure-like activity, involuntary movements or restless legs Psych: Denies: anxiety or depression [place]/Lymph: Denies: easy bleeding All/Imm: Denies: urticaria, throat swelling or facial swelling PFSH ED 2 PFSH: Medical History Colon polyps Diabetes Spondylolisthesis at L4-L5 level History of colon polyps Esophagitis Spondylisthesis Lumbar stenosis with neurogenic claudication Intervertebral disc disorder with radiculopathy of lumbosacral region Pain due to internal orthopedic prosthetic devices, implants and grafts, initial encounter This was addressed with the revision total knee arthroplasty involving exchange of the tibial insert with synovectomy. Hypertension Anxiety Depression Surgical History H/O spinal fusion 01/05,, L4 laminectomy History of total knee arthroplasty Right History of total right knee replacement Hx of inguinal hernia repair Hx of umbilical hernia repair Hx of colonoscopy with polypectomy (09/22/21) diverticulosis and polyps H/O tubal ligation Family History Mother Cancer Lung Father CAD (coronary artery disease) Stroke FH: brain aneurysm Brother Cancer Denies family history of Anesthesia complication Bleeding disorder Social History Smoking and tobacco/nicotine status: never used tobacco/nicotine Alcohol intake: current Substance/Drug Use: never Lives independently: No Household members: none Housing: House Marital status: Legally service: No Current occupational status: disabled Physical Exam 2 Const: COMMON NORMALS: no acute distress, patient oriented x3 and healthy appearing HENMT: COMMON NORMALS: normocephalic and atraumatic HEAD & SCALP: n ormocephalic and atraumatic Eye: COMMON NORMALS: Equal, round and reactive pupils present and EOMs intact bilaterally PUPIL: Yes Equal, round and reactive pupils present Neck/C-Spine: COMMON NORMALS: full ROM, supple and no JVD Lymph: LYMPHATIC: no lymphadenopathy noted Chest: COMMONS NORMALS: normal inspection of the chest and normal palpation of entire chest wall Resp: COMMON NORMALS: normal respiratory effort, No retractions and clear to auscultation bilaterally EFFORT & INSPECTION: Yes able to speak in complete sentences and Yes symmetric chest movement AUSCULTATION: clear to auscultation bilaterally Cardio: COMMON NORMALS: no JVD, regular rate and regular rhythm RATE: r egular rate RHYTHM: regular rhythm GI: COMMON NORMALS: Normal to inspection, nondistended, normoactive bowel sounds present, Soft to palpation and non-tender INSPECTION: Yes normal to inspection PALPATION: Yes Soft to palpation : COMMON NORMALS: Yes no CVA tenderness BLADDER/KIDNEY EXAM: Yes no CVA tenderness Back/Pelvis: COMMON NORMALS: no CVA tenderness Extremity: COMMON NORMALS: normal to inspection and full ROM Neuro: COMMON NORMALS: patient oriented x3, CN's II-XII intact bilaterally, moves all extremities and no focal motor deficits; negative for no sensory deficits noted (Subjective numbness appreciated going on on the left leg all the way to the) Psych: COMMON NORMALS: mental status grossly normal, Normal thought process present, cooperative and normal affect THOUGHT PROCESS: Normal thought process present Skin: COMMON NORMALS: no rashes or lesions noted GENERAL SKIN EXAM: no rashes or lesions noted Course 2 Vital Signs: Vital signs: Vital Signs Temperature 98.3 F 04/21/23 12:17 Pulse Rate 92 04/21/23 12:24 Respiratory Rate 16 04/21/23 14:05 Blood Pressure 121/71 04/21/23 14:05 Pulse Oximetry 91 04/21/23 14:05 Oxygen Delivery Me thod Room Air 04/21/23 14:05 MDM - Extremity (Nontraumatic) Medical Decision Making Due to patient's symptoms and condition ultrasound imaging of the lower extremity will be attained on the left advised patient I think more likely the patient is undergoing neuropathies in which she may be replaced back on her Neurontin as well as be started on some steroids patient does not report any recent falls or traumas noted to the back in which any additional imaging at this time is not currently indicated patient has no bowel or bladder incontinence issues or any additional concerns will continue to follow. Lab work came back unremarkable pending urinalysis will be started the patient back on her Neurontin as well as steroids advised further follow-up with primary care in 2 to 3 days which advised return the interim if any of her symptoms persist or worse the patient is ultrasound also came back unremarkable for any obvious DVT. Lab Data 04/21/23 12:55 04/21/23 12:55 Laboratory Results WBC 8.02 10^3/uL (3.29-11.43) 04/21/23 12:55 RBC 4.71 10^6/uL (3.85-5.65) 04/21/23 12:55 Hgb 14.20 g/dL (11.27-16.99) 04/21/23 12:55 Hct 42.5 % (36-47) 04/21/23 12:55 MCV 90.2 fl (85-98) 04/21/23 12:55 MCH 30.1 pg (27-33) 04/21/23 12:55 MCHC 33.4 g/dL (30-55) 04/21/23 12:55 RDW 13.2 % (12.1-15.1) 04/21/23 12:55 Plt Count 354 10^3/cmm (157-399) 04/21/23 12:55 MPV 10.2 fL (7.4-10.4) 04/21/23 12:55 Neut % (Auto) 62.2 % 04/21/23 12:55 Lymph % (Auto) 30.0 % 04/21/23 12:55 [place] % (Auto) 5.7 % 04/21/23 12:55 Eos % (Auto) 1.2 % 04/21/23 12:55 Baso % (Auto) 0.5 % 04/21/23 12:55 Neut # (Auto) 4.98 10^3/uL (1.8-7.7) 04/21/23 12:55 Lymph # (Auto) 2.4 10^3/uL (0.8-4.8) 04/21/23 12:55 [place] # (Auto) 0.5 10^3/uL (0.2-0.9) 04/21/23 12:55 Eos # (Auto) 0.1 10^3/uL (0.0-0.8) 04/21/23 12:55 Baso # (Auto) 0.0 10^3/uL (0.0-0.1) 04/21/23 12:55 Nucleated RBC % (auto) 0 % 04/21/23 12:55 Nucleated RBCs # 0.0 /100WBC 04/21/23 12:55 Sodium 138 mmol/L (136-145) 04/21/23 12:55 Potassium 4.2 mmol/L (3.5-5.1) 04/21/23 12:55 Chloride 98 mmol/L (98-107) 04/21/23 12:55 Carbon Dioxide 27 mmol/L (22-29) 04/21/23 12:55 Anion Gap 17.2 (5-19) 04/21/23 12:55 BUN 11 mg/dL (8-23) 04/21/23 12:55 Creatinine 0.7 mg/dL (0.5-0.9) 04/21/23 12:55 GFR Calculation 85.4 mL/min (90-130) L 04/21/23 12:55 Glucose 129 mg/dL (65-115) H 04/21/23 12:55 Calculated Osmolality 287 mOsm/kg (285-295) 04/21/23 12:55 Calcium 9.3 mg/dL (8.5-10.5) 04/21/23 12:55 Total Bilirubin 0.5 mg/dL (0.15-1.2) 04/21/23 12:55 AST 22 U/L (0-32) 04/21/23 12:55 ALT 19 U/L (0-33) 04/21/23 12:55 Alkaline Phosphatase 79 U/L (35-105) 04/21/23 12:55 Total Protein 7.6 g/dL (6.6-8.7) 04/21/23 12:55 Albumin 4.4 g/dL (3.5-5.2) 04/21/23 12:55 Globulin 3.2 g/dL (1.3-4.6) 04/21/23 12:55 Urine Color Yellow (Yellow) 04/21/23 13:15 Urine Appearance Clear (CLEAR) 04/21/23 13:15 Urine pH 7 (5-7) 04/21/23 13:15 Ur Specific [place] 1.005 (1.005-1.030) 04/21/23 13:15 Urine Protein Neg (Negative) 04/21/23 13:15 Urine Glucose (UA) Norm (Normal) 04/21/23 13:15 Urine Ketones Negative (Negative) 04/21/23 13:15 Urine Blood Neg (Negative) 04/21/23 13:15 Urine Nitrate Negative (Negative) 04/21/23 13:15 Urine Bilirubin Neg (Negative) 04/21/23 13:15 Urine Urobilinogen Norm mg/dL (Negative) 04/21/23 13:15 Ur Leukocyte Esterase Negative (Negative) 04/21/23 13:15 All radiology interpretation(s) finalized by discharge ED provider radiology interpretation(s): No DVT present on ultrasound. Discharge Plan Discharge Patient Disposition: Home Clinical Impression: Chronic lumbar radiculopathy, Left leg paresthesias Condition: Stable Prescriptions: New prednisone 10 mg tablets,dose pack 10 mg PO DIRECTED Qty: 30 0RF Rx Instructions: 5 tablets for 2 days, 4 tablets for 2 days, 3 tabs for 2 days, 2 tabs for 2 days and 1 tab for 2 days. No Action quetiapine [Seroquel] 100 mg tablet 100 mg PO BEDTIME baclofen 5 mg tablet 5 mg PO TID atorvastatin 40 mg tablet 40 mg PO QPM gabapentin 300 mg capsule 300 mg PO TID metoprolol succinate 100 mg Tablet Extended Release 24 Hr 100 mg PO QPM hydrocodone-acetaminophen 5-325 mg tablet 1 - 2 tab PO Q4H PRN (Reason: pain) albuterol sulfate 90 mcg/actuation Hfa Aerosol Inhaler 2 puff INHALATION Q6H PRN (Reason: Shortness Of Breath Or Wheezing) fluticasone propionate 50 mcg/actuation spray,suspension 2 spray INTRANASAL DAILY PRN (Reason: Allergy Symptoms) Discharge Orders: Discharge ED (Routine); Ordered 04/21/23 Ordered By: Shaun Hidalgo Referrals: Marianne Mirza PA [Primary Care Provider] - 1-3 days Discharge Diet: Advance as tolerated Discharge Activity: Increase activity as tolerated Patient Instructions: Paresthesia (ED), Lumbar Radiculopathy (ED), Opioid Safety, Pain Management, Peripheral Neuropathy Activity Restrictions/Additional Instructions: Please further follow-up your primary care doctor in 3 to 5 days, please take medications as prescribed in which please return the interim if any of your symptoms persist or worse. Coding Level of Care Code ED Conservation Agent for Adan Guillen
[2023-04-21] MEDS: methylPREDNISolone sod succ 125 mg/2 mL INJ IVP (13:03)
[2023-04-21] MEDS: gabapentin 400 mg Capsule PO (13:03)
[2023-04-21 13:15] LABS: Basophils % 0.5 %; Eosinophils # 0.1 10^3/uL (0.0-0.8); Eosinophils % 1.2 %; Hematocrit 42.5 % (36-47); Lymphocytes # 2.4 10^3/uL (0.8-4.8); Mean Corpuscular HGB Conc 33.4 g/dL (30-55); Mean Corpuscular Hemoglobin 30.1 pg (27-33); Mean Corpuscular Volume 90.2 fl (85-98); Mean Platelet Volume 10.2 fL (7.4-10.4); Monocytes # 0.5 10^3/uL (0.2-0.9); Monocytes % 5.7 %; Neutrophils # 4.98 10^3/uL (1.8-7.7); Neutrophils % 62.2 %; Nucleated Red Blood Cells % 0 %; Platelet Count 354 10^3/cmm (157-399); Red Blood Count 4.71 10^6/uL (3.85-5.65); Red Cell Distribution Width 13.2 % (12.1-15.1); White Blood Count 8.02 10^3/uL (3.29-11.43)
[2023-04-21 13:31] LABS: Alanine Aminotransferase 19 U/L (0-33); Albumin Level 4.4 g/dL (3.5-5.2); Alkaline Phosphatase 79 U/L (35-105); Anion Gap 17.2 (5-19); Aspartate Amino Transferase 22 U/L (0-32); Blood Urea Nitrogen 11 mg/dL (8-23); Calcium 9.3 mg/dL (8.5-10.5); Carbon Dioxide 27 mmol/L (22-29); Chloride 98 mmol/L (98-107); Creatinine Clr Calc Pharmacy 77.2766; Globulin 3.2 g/dL (1.3-4.6); Glomerular Filtration Rate 85.4 mL/min (90-130); Glucose 129 mg/dL (65-115); Osmolality Calculated 287 mOsm/kg (285-295); Potassium 4.2 mmol/L (3.5-5.1); Sodium 138 mmol/L (136-145); Total Bilirubin 0.5 mg/dL (0.15-1.2); Total Protein 7.6 g/dL (6.6-8.7)
[2023-04-21 14:03] LABS: Add Urine Microscopic? NO; Charge for UA Resulting for Rev
[2023-04-21 14:05] VITALS: BP 121/71; RESP 16; O2SAT 91
[2023-04-21 14:05] LABS: Bilirubin Urine Neg (Negative); Blood Urine Neg (Negative); Glucose Urine UA Norm (Normal); Ketones Urine Negative (Negative); Leukocyte Esterase Urine Negative (Negative); Nitrate Urine Negative (Negative); Protein Urine Neg (Negative); Specific Gravity, Urine 1.005 (1.005-1.030); Urine Appearance Clear (CLEAR); Urine Color Yellow (Yellow); Urobilinogen Urine Norm (Negative); pH Urine 7 (5-7)
== END 2023-04-21 14:36 | disposition home or self-care (01) ==
PROVIDERS: Emergency Provider Emergency Medicine; PCP Physician Assistant
DX: M54.16 Radiculopathy, lumbar region (principal); R20.2 Paresthesia of skin; E11.9 Type 2 diabetes mellitus without complications; I10 Essential (primary) hypertension
CPT/HCPCS: 36415; 80053; 81003; 85025; 93971; 96374; 99284; J2930

== ENCOUNTER → 2023-05-08 13:28 | Outpatient (BNVA) | payer MEDICAID, SELFPAY | PROVIDERS: PCP Physician Assistant; Visit Provider Psychiatry & Neurology Neurology | DX: M62.541 Muscle wasting and atrophy, not elsewhere classified, right hand (principal); M62.542 Muscle wasting and atrophy, not elsewhere classified, left hand; G56.03 Carpal tunnel syndrome, bilateral upper limbs; G56.21 Lesion of ulnar nerve, right upper limb; G62.9 Polyneuropathy, unspecified; M47.12 Other spondylosis with myelopathy, cervical region | CPT/HCPCS: 99212 ==

== ENCOUNTER → 2023-05-25 10:12 | Outpatient (BNVA) | payer MEDICAID, SELFPAY | PROVIDERS: PCP Physician Assistant; Visit Provider Orthopaedic Surgery | DX: Z98.890 Other specified postprocedural states (principal) | CPT/HCPCS: 99024 ==

== ENCOUNTER 2023-05-29 10:30 | Outpatient (CLI) | payer MEDICAID, SELFPAY ==
--- NOTE | 2023-05-29 10:34 | MR_ITS ---
WS: [id number] MRI LUMBAR SPINE NONCONTRAST TECHNIQUE: Sagittal T1, T2 and STIR imaging. Axial T1 and T2 imaging. CLINICAL INFORMATION: RADICULOPATHY LUMBAR REGION COMPARISON: MRI 11/22/2022 FINDINGS: Mild lumbar curve. No acute compression. Prior postoperative changes pedicle screw fixation L4-5 with interbody fusion graft. No high-grade central canal stenosis. L1-L2: No significant disc bulging. Mild facet arthropathy. Spinal canal and foramina are patent. L2-L3: Mild annular bulging. Moderate facet arthropathy. Spinal canal and foramina are patent. L3-L4: Mild annular bulging with slight effacement of the ventral thecal sac. Slight narrowing subart icular recess. Moderate facet arthropathy. Mild RIGHT greater than LEFT foraminal narrowing. L4-L5: Prior postoperative changes. Spinal canal and foramen are patent. Laminectomy defects. L5-S1: RIGHT paracentral protrusion with impingement on the RIGHT subarticular recess and traversing RIGHT S1 nerve root. Mild RIGHT foraminal narrowing. LEFT foramen is patent. Mild to moderate facet a rthropathy with small facet effusions. Recommend correlation RIGHT S1 nerve root symptoms. Visualized pelvic bony structures: Normal. Paravertebral soft tissues: Normal. Stable partially visualized RIGHT renal cyst measuring 5.4 x 4.7 cm IMPRESSION: 1. Mild lumbar curve. No acute compression. No high-grade central canal stenosis. 2. Prior postoperative changes pedicle screw fixation L4-5 with interbody fusion unchanged. 3. RIGHT paracentral protrusion L5-S1 impinges the RIGHT S1 nerve root in the subarticular recess. T his is similar to previous. Recommend correlation RIGHT S1 nerve root symptoms. Mild RIGHT foraminal narrowing. 4. Mild annular bulge L3-4 with slight narrowing of the subarticular recess bilaterally. Moderate fa cet arthropathy at this level. 5. Mild LEFT greater than RIGHT bony foraminal narrowing L4-5 unchanged. 6. No other significant changes compared to previous.
== END 2023-05-29 10:31 | disposition home or self-care (01) ==
LOC: RAD 10:31
PROVIDERS: PCP Physician Assistant; Visit Provider Physician Assistant
DX: M51.16 Intervertebral disc disorders with radiculopathy, lumbar region (principal); M48.061 Spinal stenosis, lumbar region without neurogenic claudication; Z98.890 Other specified postprocedural states
CPT/HCPCS: 72148

== ENCOUNTER → 2023-05-30 12:49 | Outpatient (BNVA) | payer MEDICAID, SELFPAY | PROVIDERS: PCP Physician Assistant; Visit Provider Orthopaedic Surgery | DX: Z98.890 Other specified postprocedural states (principal) | CPT/HCPCS: 99024 ==

== ENCOUNTER → 2023-06-05 09:51 | Outpatient (BNVA) | payer MEDICAID, SELFPAY | PROVIDERS: PCP Physician Assistant; Referring Provider Psychiatry & Neurology Neurology; Visit Provider Specialist | DX: G56.03 Carpal tunnel syndrome, bilateral upper limbs (principal); M18.12 Unilateral primary osteoarthritis of first carpometacarpal joint, left hand | CPT/HCPCS: 73110; 99204 ==